=== PATIENT | female | born 1945 | race African-American/Black ===

== ENCOUNTER 2017-05-09 14:37 | Inpatient (IN) ==
--- NOTE | 2017-05-09 15:26 | Emergency Department Note ---
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 She is bedbound. Wears diapers, which are changed infrequently. PCP: Dr. Herrmann PMHx: Hypertension, IDDM, CVA, recurrent UTI, Previous PE, on Coumadin, other comorbidities as listed in chart Date of Last Menstrual Period: hysterectomy Allergies/Adverse Reactions: Allergies Allergy/AdvReac Type Severity Reaction Status Date / Time latex Allergy RASH Verified 01/29/16 14:37 sulfamethoxazole Allergy RASH Verified 01/29/16 14:37 [From Bactrim] trimethoprim [From Bactrim] Allergy RASH Verified 01/29/16 14:37 Home Medications: Home Medications Medication Instructions Recorded Confirmed Type Bimatoprost 0.01% Oph Soln 1 drop BOTH EYES DAILY 04/23/15 05/09/17 History [Lumigan] Brimonidine 0.1% Oph Soln 1 drop BOTH EYES DAILY 04/23/15 05/09/17 History [Alphagan P 0.1% Oph Soln] Furosemide 40 mg PO BID 04/23/15 05/09/17 History Gabapentin 600 mg PO TID 04/23/15 05/09/17 History Magnesium Oxide 400 mg PO BID 04/23/15 05/09/17 History Methenamine Hippurate 1 gm PO BID 04/23/15 05/09/17 History Omeprazole 40 mg PO DAILY 04/23/15 05/09/17 History Spironolactone [Aldactone] 50 mg PO DAILY 04/23/15 05/09/17 History Metoclopramide Tab [Reglan Tab] 5 mg PO ACHS 01/25/16 05/09/17 History metFORMIN [Glucophage] 500 mg PO BID W/MEALS 01/25/16 05/09/17 History Acetaminophen Tab [Tylenol Tab] 325 mg PO Q4H PRN #0 tablet 02/01/16 05/09/17 Rx Baclofen 20 mg PO Q8HR PRN #0 02/01/16 05/09/17 Rx Insulin Detemir [Levemir] 75 units SUBCUT BEDTIME 07/13/16 05/09/17 History Isosorbide Mononitrate [Imdur] 30 mg PO DAILY tablet 07/15/16 05/09/17 Rx Ciprofloxacin Tab [Cipro Tab] 500 mg PO BID #14 tablet 09/04/16 05/09/17 Rx Warfarin Sodium 5 mg PO DAILY 05/09/17 05/09/17 History Review of System - Review of System 12 point system: reviewed and no additional remarkable complaints except as stated - Review of System Constitutional: Absent: fever Genitourinary female: Present: as per HPI, dysuria Neurological: Present: as per HPI, confusion Medical,Surgical,& Family Hx - Medical History Cardio: History of: Cerebrovascular Disease, Hypertension No history of: Aneurysm, Cardiac Dysrhythmia, Congenital Heart Disease, CAD, MD, Pacemaker, PVD, Valvular Heart Disease, Cardiovascular Problems Neurology: History of: Cerebrovascular Accident HEENT: History of: Eye Problem, Glaucoma Endocrine: History of: Diabetes Mellitus (IDDM) Respiratory: History of: Pulmonary Embolism Genitourinary: History of: Recurring Urinary Tract Infections Gastrointestinal: History of: GERD, GI Problems Musculoskeletal: History of: Back/Neck Problems No history of: Degenerative Disk Disease, Herniated Disk, Osteoporosis, Musculoskeletal Cancer, Musculoskeletal Problems Hematology: History of: Clotting Problems No history of: Anemia, Blood Transfusion Reaction, Bleeding Problems, Sickle Cell Disease, Hematologic Cancer, Blood Disorders Reproductive: No history of: Abnormal Pap Smear, Breast Cancer, Endometriosis, Ectopic , Ovarian Cysts, Complication, Sexually Transmitted Disorders , Reproductive Cancer, Reproductive Problems Other: No history of: Anesthesia Reactions, Anaphylaxis, Cancer, Eczema, HIV, Malignant Hyperthermia, MRSA, Vancomycin-Resistant Enterococci, Skin Problems, Miscellaneous Medical Problems - Surgical History Cardiac Surgeries: Patient Denies: Femoral-Popliteal Bypass Graft, Cardiac Catheterization, Cardiac Surgery, Carotid Endarterectomy, Internal Defibrillator, Vascular Access Devices Thoracic Surgeries: Patient denies;: Kidney (Renal Surgery), Lithotripsy, Nephrectomy, Organ Transplant, Lobectomy Neurologic Surgeries: Patient denies: Brain Aneurysm, Cerebral Hemorrhage, Neurologic Surgery HEENT Surgeries: Patient denies: Carotid Endarterectomy, Eye Surgery, Thyroid Surgery, Tonsilectomy & Adenoidectomy Abdominal Surgeries: Surgical HX of: Cholecystectomy Patient denies: Abdominal Surgery, Appendectomy, Colonoscopy, Gastric Bypass Surgery, EGD, Hernia Repair, Splenectomy Reproductive Surgeries: Surgical HX of;: Gynecologic Surgery, Hysterectomy Patient denies;: Breast Surgery, Section, Cystoscopy, Dilation and Curettage, Genitourinary Surgery, Tubal Ligation Orthopedic Surgeries: Surgical HX of;: Orthopedic Surgery, Total Knee Replacement Patient denies;: Implanted Devices, Spinal Surgery, Total Hip Replacement - Family History Family History: Reports;: Family Heart Disease, Family Hypertension (SON), Family Psychiatric Problems (BRO ALZHIEIMERS), Family Stroke (BRO) Denies;: Family Anesthesia Reaction - Social History Smoking Status: Never smoker Exam Physical Examination: - General General appearance: alert, in no apparent distress - Head Head exam: Present: atraumatic, normocephalic - Eye Eye exam: Present: normal appearance, PERRL, normal ocular movement - Neck Neck exam: Present: normal inspection, full ROM - Chest Chest inspection: Present: normal inspection, symmetric chest wall rise - Respiratory Respiratory exam: Present: normal lung sounds bilaterally. Absent: rales, rhonchi, wheezes - Cardiovascular Cardiovascular exam: Present: regular rate, normal rhythm, normal heart sounds, no murmur - Abdominal Exam Abdominal exam: Present: soft, normal bowel sounds. Absent: distention, tenderness - Extremities Exam Extremities exam: Present: normal inspection - Neurological Exam Neurological exam: Present: lethargic, oriented X3, although mental status is a little dull/lagging during conversation, Strength: 3/5 LUE, 4/5 RUE, 2/5 LLE, 4/ 5 RLE - Psychiatric Psychiatric exam: Present: blunted affect, normal mood, oriented to time, oriented to person, oriented to place, speech is lagging behind questions asked at times, memory intact - Skin Skin exam: Present: warm, dry, sacral decubitus ulcer present with wound dressing in place Vital Signs: Vital Signs Temperature 98.0 F 05/11/17 00:00 Pulse Rate 79 05/11/17 00:00 Respiratory Rate 16 06/30/17 02:00 Blood Pressure 103/56 05/11/17 00:00 O2 Sat by Pulse Oximetry 99 05/11/17 00:00 Course Course Narrative: The multiple negatives in the past medical history were not marked by this provider. They are the result of the triage process, past medical records, or other unknown causes. They are marked by either a bag turner or clericial personnel. Due to time constraints, these were not all reviewed with the patient and the backslashes were not removed from the chart. They should be ignored. - Consultations Time: 16:55 (Hospitalist service notified of pt presence and status. ) Time: 17:00 (Hospitalist service here to evaluate patient. Will admit.) Results - Labs CBC & BMP: 05/10/17 06:07 05/10/17 06:07 Lab Results: I have reviewed the patients labs Labs: Laboratory Tests 05/09/17 14:52 Urine Color Yellow Urine Appearance Cloudy Urine pH 5.0 Ur Specific [place] 1.013 Urine Protein Negative Urine Glucose (UA) Negative Urine Ketones Negative Urine Blood Negative Urine Nitrate Negative Urine Bilirubin Negative Urine Urobilinogen < 2.0 H Urine Leukocytes Large H Urine RBC 39 Urine WBC 218 Urine WBC Clumps Moderate Ur Squamous Epith Cells Occasional Urine Bacteria Many Disposition Clinical Impression: Decubitus ulcers, Acute UTI Disposition: Still a Patient Condition: Stable Time of Disposition: 17:00
[2017-05-09 15:41] LABS: Apearance,Urine CLOUDY (Clear); Bacteria,Urine Many /HPF (Few); Bilirubin,Urine Negative (Negative); Blood, Urine Negative (Negative); Glucose,Urine (UA) Negative (Negative); Ketones,Urine Negative (Negative); Nitrite,Urine Negative (Negative); Protein,Urine Negative; RBC,Urine 39 /HPF (0-4); Squamous Epithelial Cell,Urine Occasional /HPF (0-10); Urine Color Yellow (Yellow); Urine Specific Gravity 1.013 (1.001-1.035); Urine Urobilinogen < 2.0 EU/DL (0.2-1.0); WBC,Urine 218 /HPF (0-6)
[2017-05-09 16:08] LABS: Basophils # 0.1 10*3/uL (0.0-0.2); Basophils % 0.5 % (0.0-0.8); Eosinophils # 0.2 10*3/uL (0.0-0.87); Eosinophils % 1.9 % (0.00-10.9); Hematocrit 38.2 VOL% (35.7-47.0); Hemoglobin 12.2 GM/DL (12.0-16.0); Immature Granulocytes % 0.2 %; Immature Granulocytes Absolute 0.02 #; Lymphocytes # 1.7 10*3/uL (1.4-4.0); Lymphocytes % 16.6 % (21.3-54.2); Mean Corpuscular HGB Conc 31.9 GM/DL (32-36); Mean Corpuscular Hemoglobin 28 PG (27-34); Mean Corpuscular Volume 86.4 FL (87-102); Mean Platelet Volume 10.5 FL (9.6-12.0); Monocytes # 0.6 10*3/uL (0.11-0.8); Monocytes % 5.6 % (1.7-12.7); Neutrophils # 7.7 10*3/uL (1.4-7.4); Neutrophils % 75.2 % (38.7-73.9); Platelet Count 386 T/CUMM (130-400); Red Blood Count 4.42 MC/CUMM (3.8-5.5); Red Cell Distribution Width 15.3 % (9.3-17.3); White Blood Count 10.3 T/CUMM (4-12)
[2017-05-09 16:35] LABS: Alanine Aminotransferase 19 U/L (13-56); Albumin 3.4 G/DL (3.4-5.0); Alkaline Phosphatase 91 U/L (45-117); Aspartate Amino Transferase 18 U/L (0-37); Bilirubin,Total < 0.39 MG/DL (0.2-1.0); Blood Urea Nitrogen 34 MG/DL (7-18); Calcium 9.4 MG/DL (8.5-10.1); Glucose 217 MG/DL (74-106); Osmolality,Calculated 284.1 MOS/KG (273-304); Potassium 2.9 MMOL/L (3.5-5.1); Sodium 135 MMOL/L (136-145); Total Protein 8.4 G/DL (6.4-8.3)
[2017-05-09] MEDS ORDERED: diphenhydrAMINE CAP 25 MG CAPSULE PO PRN (17:15)
[2017-05-09] MEDS ORDERED: ACETAMINOPHEN 325 MG TABLET PO PRN ×2 (17:15)
[2017-05-09] MEDS ORDERED: MORPHINE 2 MG/1 ML SYRINGE IV PRN (17:15)
[2017-05-09] MEDS ORDERED: GLUCAGON 1 MG VIAL IM PRN (17:15)
[2017-05-09] MEDS ORDERED: guaiFENesin/DM ER 600-30 MG TABLET PO PRN (17:15)
[2017-05-09] MEDS ORDERED: DEXTROSE 50% 25 GM/50 ML VIAL IV PRN (17:15)
[2017-05-09] MEDS ORDERED: ONDANSETRON 4 MG/2 ML VIAL IV PRN (17:15)
--- NOTE | 2017-05-09 17:29 | Hospitalist History & Physical ---
Assessment and Plan - Time spent with patient Time spent with patient: Greater than 30 minutes (1) Altered mental status Status: Resolved Assessment and plan: Ms. Diana is a 72-year-old -[place]ian female with history of diabetes, hypertension, CVA, history of PE on Coumadin admitted by hospitalist with acute UTI and hypokalemia. She will be started on IV antibiotics, pain and nausea control. Her potassium will be supplemented. Her medicines have not been entered into the [facility] system so they will be reconciled when available. Dr. Duran we will see and examined patient and further recommendations to follow. Current Visit: No (2) UTI (urinary tract infection) Status: Acute Current Visit: No (3) History of pulmonary embolism Status: Acute Current Visit: No (4) Chronic anticoagulation Status: Acute Current Visit: No (5) Diabetes Status: Acute Current Visit: No Qualifiers: Diabetes mellitus type: type 2 Diabetes mellitus complication status: with circulatory complication (6) Decubitus ulcers Status: Acute Current Visit: No History of Present Illness Chief complaint: Discomfort with urination History of present illness: Ms. Diana is a 72 year old -[place] female with history of diabetes, hypertension, CVA, history of PE on Coumadin presenting to the ED with altered mental status. Patient is a bedridden old stroke with left-sided weakness who lives at home with her family. They state for 3 days she has had altered mental status. Patient states she has had pain and discomfort with urination 2 days. She denies headaches, fever, chest pain, shortness of breath, abdominal pain, or lower extremity edema. 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 Talon Bello is treating at the wound center. Patient is afebrile and her vital signs are stable. Her white count is normal, sodium low at 135, potassium low at 2., creatinine elevated mildly at 1.2. Her UA is cloudy with large leukocytes. After discussion with XAVIER Diana and Dr. Duran the admitting hospitalist, it was agreed patient would be admitted for further evaluation and treatment. Patient's meds will be reconciled once put into [facility] and patient is a full code. Home Medications Medication Instructions Recorded Confirmed Type Bimatoprost 0.01% Oph Soln 1 drop BOTH EYES DAILY 04/23/15 07/14/16 History [Lumigan] Brimonidine 0.1% Oph Soln 1 drop BOTH EYES DAILY 04/23/15 07/14/16 History [Alphagan P 0.1% Oph Soln] Furosemide 40 mg PO BID 04/23/15 07/14/16 History Gabapentin 600 mg PO TID 04/23/15 07/14/16 History Magnesium Oxide 400 mg PO BID 04/23/15 07/14/16 History Methenamine Hippurate 1 gm PO BID 04/23/15 07/14/16 History Omeprazole 40 mg PO DAILY 04/23/15 07/14/16 History Spironolactone [Aldactone] 50 mg PO DAILY 04/23/15 07/14/16 History Metoclopramide Tab [Reglan Tab] 5 mg PO ACHS 01/25/16 07/14/16 History metFORMIN [Glucophage] 500 mg PO BID W/MEALS 01/25/16 07/14/16 History Acetaminophen Tab [Tylenol Tab] 325 mg PO Q4H PRN #0 tablet 02/01/16 07/14/16 Rx Baclofen 20 mg PO Q8HR PRN #0 02/01/16 07/14/16 Rx Insulin Detemir [Levemir] 75 units SUBCUT BEDTIME 07/13/16 07/14/16 History Warfarin [Coumadin] 4 mg PO DAILY@1800 07/13/16 07/14/16 History Isosorbide Mononitrate [Imdur] 30 mg PO DAILY tablet 07/15/16 Rx Warfarin [Coumadin] 3 mg PO DAILY@1800 tablet 07/15/16 Rx Ciprofloxacin Tab [Cipro Tab] 500 mg PO BID #14 tablet 09/04/16 Rx Allergies Allergy/AdvReac Type Severity Reaction Status Date / Time latex Allergy RASH Verified 01/29/16 14:37 sulfamethoxazole Allergy RASH Verified 01/29/16 14:37 [From Bactrim] trimethoprim [From Bactrim] Allergy RASH Verified 01/29/16 14:37 Medical,Surgical,& Family Hx - Medical History Cardio: History of: Hypertension No history of: Aneurysm, Cardiac Dysrhythmia, Cerebrovascular Disease, Congenital Heart Disease, CAD, [place], Pacemaker, PVD, Valvular Heart Disease, Cardiovascular Problems Psychological: No history of: Anxiety Disorders, ADHD, Behavior Problems, Bipolar Disorder, Depression, Previous Suicide Attempt, Psychiatric/Substance Abuse Tx, Schizophrenia, Violent Behavior, Psychiatric Problems Neurology: No history of: Brain Aneurysm, Cerebral Hemorrhage, Cerebral Palsy, Dementia , Migraine, Multiple Sclerosis, Parkinson's Disease, Peripheral Neuropathy, Seizures, TIA, Vertigo, Neurologocal Cancer HEENT: History of: Eye Problem, Glaucoma No history of: Ear Problem, Dental Problems, Oral Cancer Endocrine: History of: Diabetes Mellitus (IDDM) No history of: Adrenal Disease, Diabetes Mellitus (NIDDM), Dyslipidemia, Thyroid Disorder, Endocrine Cancer, Endocrine Problems Rheumatology: No history of;: Fibromyalgia, Gout, Myasthenia Gravis, Psoriasis, Rheumatoid Arthritis, Sjogrens, Systemic Lupus Erythematosus, Rheumatological Problems Respiratory: History of: Pulmonary Embolism No history of: Asthma, Bronchitis, COPD, Intubation, Obstructive Sleep Apnea , Pulmonary Hypertension, Pneumonia, Lung Cancer, Respiratory Problems Renal: No history of: Renal (Kidney) Cancer, Dialysis, Renal Failure, Renal Problems Genitourinary: History of: Recurring Urinary Tract Infections No history of: Bladder Problem, Kidney Stones, Genitourinary Cancer, Problems Gastrointestinal: History of: GERD, GI Problems No history of: Bowel Obstruction, Clostridium Difficile, Crohn's Disease, Diverticulitis/ Diverticulosis, Esophageal Varices, Gastrointestinal Bleed, Hemorrhoids, Hematochezia, Hepatitis, Liver Problems, Pancreatitis, Polyps, Ulcerative Colitis, Gastrointestinal Cancer Musculoskeletal: History of: Back/Neck Problems No history of: Amputation, Degenerative Disk Disease, Herniated Disk, Osteoporosis, Musculoskeletal Cancer, Musculoskeletal Problems Hematology: History of: Clotting Problems No history of: Anemia, Blood Transfusion Reaction, Bleeding Problems, Sickle Cell Disease, Hematologic Cancer, Blood Disorders Reproductive: No history of: Abnormal Pap Smear, Breast Cancer, Endometriosis, Ectopic , Ovarian Cysts, Complication, Sexually Transmitted Disorders , Reproductive Cancer, Reproductive Problems Other: No history of: Anesthesia Reactions, Anaphylaxis, Cancer, Eczema, HIV, Malignant Hyperthermia, MRSA, Vancomycin-Resistant Enterococci, Skin Problems, Miscellaneous Medical Problems - Surgical History Cardiac Surgeries: Patient Denies: Femoral-Popliteal Bypass Graft, Cardiac Catheterization, Cardiac Surgery, Carotid Endarterectomy, Internal Defibrillator, Vascular Access Devices Thoracic Surgeries: Patient denies;: Kidney (Renal Surgery), Lithotripsy, Nephrectomy, Organ Transplant, Lobectomy Neurologic Surgeries: Patient denies: Brain Aneurysm, Cerebral Hemorrhage, Neurologic Surgery HEENT Surgeries: Patient denies: Carotid Endarterectomy, Eye Surgery, Thyroid Surgery, Tonsilectomy & Adenoidectomy Abdominal Surgeries: Surgical HX of: Cholecystectomy Patient denies: Abdominal Surgery, Appendectomy, Colonoscopy, Gastric Bypass Surgery, EGD, Hernia Repair, Splenectomy Reproductive Surgeries: Surgical HX of;: Gynecologic Surgery, Hysterectomy Patient denies;: Breast Surgery, Section, Cystoscopy, Dilation and Curettage, Genitourinary Surgery, Tubal Ligation Orthopedic Surgeries: Surgical HX of;: Orthopedic Surgery, Total Knee Replacement Patient denies;: Implanted Devices, Spinal Surgery, Total Hip Replacement - Family History Family History: Reports;: Family Heart Disease, Family Hypertension (SON), Family Psychiatric Problems (BRO ALZHIEIMERS), Family Stroke (BRO) Denies;: Family Anesthesia Reaction - Social History Smoking Status: Never smoker Have you smoked in the last 12 months: No Frequency of Alcohol Use: None Type of Drug Use: None Marital Status: Legally Lives With:: Children Functional capacity: bed bound Review of systems: A complete 10 system review of systems was obtained and pertinent positives and negatives per HPI Exam - Constitutional Vitals: Period Temp Pulse Resp BP Sys/Valadez Pulse Ox Last 24 Hr 98.4 F-98.4 F 75-77 18-20 100-119/54-60 97-97 Exam: Constitutional System: No distress. No tremulousness. Head: Normocephalic, atraumatic. Ears, Nose and Throat System: No evidence of Otitis or Mastoiditis. No epistaxis or discharge Eyes System: Pupils equal, round, and reactive. Extraocular muscles intact. Neck: Supple, without adenopathy, No jugular venous distention. No thyromegaly, neck mass, or prior surgery apparent. Respiratory System: Chest clear to auscultation. Cardiovascular System: Heart with regular rate and rhythm. No murmur. GI System: Abdomen soft, nontender. Normo active bowel sounds present. Musculoskeletal System: limbs with mild pedal edema. Full distal pulses. Small sacral ulcer, clean no sign of infection Neurological System: No discernable sensory deficit. No aphasia, 3 out of 5 strength on the left, 4 out of 5 on the right Psychiatric System: Conversation is rational Results - Labs CBC & BMP: 05/09/17 15:44 05/09/17 15:44 Lab Results: I have reviewed the past 24 hour labs Quality Measures - VTE Contraindication to Pharmacological VTE Prophylaxis: Already on Theraputic Agent , No Prophylaxis Needed
[2017-05-09] MEDS ORDERED: POTASSIUM CHLORIDE 20 MEQ TABLET PO PRN (17:32)
[2017-05-09] MEDS: SODIUM CHLORIDE 0.9% 1,000 ML IV SCH (18:30)
[2017-05-09] MEDS ORDERED: LEVOFLOXACIN INJ 500 MG in PREMIX 1 EACH IV SCH (19:00)
[2017-05-09 19:53] LABS: INR 1.7; PT Patient Result 18.1 SECS
[2017-05-09] MEDS: METHENAMINE HIPPURATE 1 GM TABLET PO SCH (20:43)
[2017-05-09] MEDS: INSULIN GLARGINE 100 UNIT/ML SUBCUT SCH (20:43)
[2017-05-09] MEDS: GABAPENTIN 600 MG TABLET PO SCH (20:43)
[2017-05-09] MEDS: MEROPENEM 1,000 MG in SODIUM CHLORIDE 0.9% 100 ML IV SCH (20:44)
[2017-05-09] MEDS: METOCLOPRAMIDE 5 MG TABLET PO SCH (20:44)
[2017-05-09] MEDS: INSULIN REGULAR 100 UNIT/ML SUBCUT SCH (20:48)
[2017-05-09] MEDS: POTASSIUM CHLORIDE 20 MEQ TABLET PO SCH ×2 (20:51→23:57)
[2017-05-09] MEDS: MAGNESIUM OXIDE 400 MG TABLET PO SCH (20:52)
[2017-05-10] MEDS: POTASSIUM CHLORIDE 20 MEQ TABLET PO SCH (05:15)
[2017-05-10] MEDS: SODIUM CHLORIDE 0.9% 1,000 ML IV SCH ×3 (05:15→20:33)
[2017-05-10 06:50] LABS: Basophils % 0.4 % (0.0-0.8); Eosinophils # 0.3 10*3/uL (0.0-0.87); Eosinophils % 3.2 % (0.00-10.9); Hematocrit 35.4 VOL% (35.7-47.0); Hemoglobin 11.1 GM/DL (12.0-16.0); Immature Granulocytes % 0.2 %; Immature Granulocytes Absolute 0.02 #; Lymphocytes # 1.9 10*3/uL (1.4-4.0); Lymphocytes % 22.5 % (21.3-54.2); Mean Corpuscular HGB Conc 31.4 GM/DL (32-36); Mean Corpuscular Hemoglobin 27 PG (27-34); Mean Corpuscular Volume 86.3 FL (87-102); Mean Platelet Volume 10.9 FL (9.6-12.0); Monocytes # 0.6 10*3/uL (0.11-0.8); Monocytes % 7.2 % (1.7-12.7); Neutrophils # 5.6 10*3/uL (1.4-7.4); Neutrophils % 66.5 % (38.7-73.9); Platelet Count 370 T/CUMM (130-400); Red Cell Distribution Width 15.3 % (9.3-17.3); White Blood Count 8.4 T/CUMM (4-12)
[2017-05-10 07:00] LABS: INR 1.5; PT Patient Result 16.7 SECS
[2017-05-10 07:27] LABS: Calcium 8.5 MG/DL (8.5-10.1); Magnesium 2.5 MG/DL (1.8-2.4); Osmolality,Calculated 283.5 MOS/KG (273-304); Potassium 3.8 MMOL/L (3.5-5.1)
--- NOTE | 2017-05-10 07:44 | EKG Report ---
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
[2017-05-10] MEDS: INSULIN REGULAR 100 UNIT/ML SUBCUT SCH ×4 (07:54→21:30)
[2017-05-10] MEDS: METOCLOPRAMIDE 5 MG TABLET PO SCH ×4 (08:06→20:35)
[2017-05-10] MEDS: GABAPENTIN 600 MG TABLET PO SCH ×3 (08:06→20:34)
[2017-05-10] MEDS: MAGNESIUM OXIDE 400 MG TABLET PO SCH ×2 (08:06→20:34)
[2017-05-10] MEDS: METHENAMINE HIPPURATE 1 GM TABLET PO SCH ×2 (08:06→20:35)
[2017-05-10] MEDS: PANTOPRAZOLE 40 MG TABLET PO SCH (08:07)
[2017-05-10] MEDS: ISOSORBIDE MONONITRATE 30 MG TABLET PO SCH (08:07)
[2017-05-10] MEDS: BIMATOPROST 0.01% OPH SOLN 2.5 ML BOTTLE BOTH EYES SCH (08:11)
[2017-05-10] MEDS: BRIMONIDINE 0.1% OPH SOLN 5 ML BOTTLE BOTH EYES SCH (08:11)
[2017-05-10] MEDS: MEROPENEM 1,000 MG in SODIUM CHLORIDE 0.9% 100 ML IV SCH ×2 (08:14→20:35)
--- NOTE | 2017-05-10 08:19 | Hospitalist Progress Note ---
Assessment and Plan (1) UTI (urinary tract infection) Status: Acute Assessment and plan: Impression: 1. Urinary tract infection 2. Old stroke 3. Pressure ulcer 4. Pulmonary embolism, on warfarin Plan: Continue IV antibiotics until culture results are available. Reconcile home medications. Continue local wound care. Adjust warfarin as indicated. This note was completed using [employer] voice recognition software. There may be information assurance manager errors as a result. Current Visit: No Qualifiers: Urinary tract infection type: acute cystitis Hematuria presence: without hematuria Qualified Code(s): N30.00 - Acute cystitis without hematuria Hospitalist: Subjective Interval history: Follow-up urinary tract infection and pressure ulcer. The patient reports to me that she had a cerebral infarction about 10 years ago. She was initially ambulatory, but has gradually become weak and bedbound. She has a sacral pressure ulcer that is apparently healing well at home. About 3 or 4 days ago, she noted the onset of some dysuria and itching. She reports frequent urinary infections, and says that these are usually able to be managed at home. She came in this time and was found to have significant pyuria. She has been admitted and started on IV antibiotics. She has not had any fever. She has not had any blood in the urine. Exam - Constitutional Vitals: Period Temp Pulse Resp BP Sys/Valadez Pulse Ox Last 24 Hr 97.1 F-98.4 F 73-96 16-20 100-119/54-67 95-97 Vital signs are noted above. She is awake and alert. Heart is regular with no murmur or gallop. Lungs are clear with no rales or wheezes. Abdomen is soft with no significant mass or tenderness. Results - Labs CBC & BMP: 05/10/17 06:07 05/10/17 06:07 Lab Results: I have reviewed the past 24 hour labs (There is no leukocytosis. Renal function is normal.) Quality Measures - VTE Contraindication to Pharmacological VTE Prophylaxis: Already on Theraputic Agent , No Prophylaxis Needed
[2017-05-10] MEDS ORDERED: PANTOPRAZOLE 40 MG TABLET PO SCH (09:00)
--- NOTE | 2017-05-10 15:44 | Physician Query Form ---
CLICK EDIT DOCUMENT TO SELECT QUERY ANSWER --> OK --> SIGN Mena Chavarria RN Clinical Project Administrator W) [phone] (f) [phone] [email or web address] PROVIDERS: Make your selection(s) from the choices in EACH section by typing an "x" and enter comments in the comment section. Please use your independent medical judgment in providing your response. This request does not imply that any particular answer is desired or expected. CLINICAL INDICATORS: (Providers should not edit this section) Based on documentation of "patient is bedridden". Nurse notes state patient is incontinent of bowel and bladder. Patient has muscle weakness and requires maximum assist with hygiene and feeding. Which, if any, of the following is an etiology of the above abnormalities and treatment rendered: ( ) Functional quadriplegia (complete immobility due to severe physical disability or frailty due to non-neurologic cause) ( ) Quadriplegia due to a neurologic cause, please specify: ( ) Paraplegia due to a neurologic cause, please specify: (x ) Hemiplegia/hemiparesis due to a neurologic cause, please specify: ( ) Complete Immobility (due to frailty or severe physical disability) ( ) Persistent vegetative state ( ) Critical illness myopathy (difficulty weaning patients from mechanical ventilation or prolonged recovery after illness) ( ) General weakness ( ) Other cause, please specify: ( ) Clinically unable to determine COMMENTS: PLEASE ALSO DOCUMENT RESPONSE IN PROGRESS NOTES AND/OR DISCHARGE SUMMARY Use of terms such as suspected, likely, or probable (associated with a specific diagnosis that is being evaluated, monitored, or treated as if it exists) are acceptable and can be restated in the discharge summary if not ruled out. MTDD
[2017-05-10] MEDS: SODIUM HYPOCHLORITE 0.25% IRRIG 473 ML BOTTLE TOP SCH (16:48)
[2017-05-10] MEDS: WARFARIN 5 MG TABLET PO SCH (17:42)
[2017-05-10] MEDS: INSULIN GLARGINE 100 UNIT/ML SUBCUT SCH (22:09)
[2017-05-11 04:03] LABS: INR 1.4; PT Patient Result 15.3 SECS
[2017-05-11 04:19] LABS: Calcium 8.4 MG/DL (8.5-10.1); Osmolality,Calculated 288.1 MOS/KG (273-304); Potassium 3.8 MMOL/L (3.5-5.1)
[2017-05-11] MEDS: SODIUM CHLORIDE 0.9% 1,000 ML IV SCH ×3 (05:38→20:20)
[2017-05-11] MEDS: BRIMONIDINE 0.1% OPH SOLN 5 ML BOTTLE BOTH EYES SCH (08:31)
[2017-05-11] MEDS: METOCLOPRAMIDE 5 MG TABLET PO SCH ×4 (08:32→21:26)
[2017-05-11] MEDS: ISOSORBIDE MONONITRATE 30 MG TABLET PO SCH (08:32)
[2017-05-11] MEDS: PANTOPRAZOLE 40 MG TABLET PO SCH (08:32)
[2017-05-11] MEDS: GABAPENTIN 600 MG TABLET PO SCH ×3 (08:32→21:26)
[2017-05-11] MEDS: METHENAMINE HIPPURATE 1 GM TABLET PO SCH ×2 (08:32→21:26)
[2017-05-11] MEDS: MAGNESIUM OXIDE 400 MG TABLET PO SCH ×2 (08:32→21:26)
[2017-05-11] MEDS: BIMATOPROST 0.01% OPH SOLN 2.5 ML BOTTLE BOTH EYES SCH (08:32)
[2017-05-11] MEDS: INSULIN REGULAR 100 UNIT/ML SUBCUT SCH ×4 (08:33→21:55)
[2017-05-11] MEDS: MEROPENEM 1,000 MG in SODIUM CHLORIDE 0.9% 100 ML IV SCH ×2 (08:33→21:30)
--- NOTE | 2017-05-11 09:17 | Hospitalist Progress Note ---
Assessment and Plan (1) UTI (urinary tract infection) Status: Acute Assessment and plan: Impression: 1. Urinary tract infection 2. Old stroke 3. Pressure ulcer, present on admission 4. Pulmonary embolism, on warfarin Plan: Continue IV antibiotics until culture results are available. Magnesium citrate has been added. Continue local wound care. Plan on discharge in the morning This note was completed using [employer] voice recognition software. There may be route cdl driver errors as a result. Current Visit: No Qualifiers: Urinary tract infection type: acute cystitis Hematuria presence: without hematuria Qualified Code(s): N30.00 - Acute cystitis without hematuria Hospitalist: Subjective Interval history: Follow-up urinary tract infection, constipation, and pressure sores. The patient continued to receive appropriate treatment for the pressure sores that were all present on admission. Urine culture is growing couple of different organisms; these have yet to be identified. She continues on meropenem. She says that she has not had a bowel movement in 5 days. She reports chronic constipation at home, usually relieved by milk of magnesia or magnesium citrate. She thinks she might be ready for discharge in the morning. Exam - Constitutional Vitals: Period Temp Pulse Resp BP Sys/Valadez Pulse Ox Last 24 Hr 97.7 F-98.9 F 68-95 16-20 94-124/50-74 90-99 Vital signs are noted above. Heart is regular with no murmur or gallop. Lungs are clear with no rales or wheezes. Abdomen is soft with some distention but no significant mass or tenderness. She is awake and alert. Results - Labs CBC & BMP: 05/10/17 06:07 05/11/17 03:28 Lab Results: I have reviewed the past 24 hour labs Quality Measures - VTE Contraindication to Pharmacological VTE Prophylaxis: Already on Theraputic Agent , No Prophylaxis Needed
[2017-05-11] MEDS: SODIUM HYPOCHLORITE 0.25% IRRIG 473 ML BOTTLE TOP SCH (09:50)
[2017-05-11] MEDS ORDERED: MAGNESIUM CITRATE 300 ML BOTTLE PO ONE (10:00)
[2017-05-11] MEDS: WARFARIN 5 MG TABLET PO SCH (17:20)
[2017-05-11] MEDS: INSULIN GLARGINE 100 UNIT/ML SUBCUT SCH (21:55)
[2017-05-11] MEDS: BACLOFEN 20 MG TABLET PO PRN (23:45)
[2017-05-12 02:56] LABS: INR 1.4; PT Patient Result 15.2 SECS
[2017-05-12] MEDS ORDERED: MAGNESIUM CITRATE 300 ML BOTTLE PO ONE (08:24)
--- NOTE | 2017-05-12 08:27 | Hospitalist Progress Note ---
Assessment and Plan (1) UTI (urinary tract infection) Status: Acute Assessment and plan: Impression: 1. Urinary tract infection with E. coli and enterococcus 2. Old stroke 3. Pressure ulcer, present on admission 4. Pulmonary embolism, on warfarin Plan: Switch to oral antibiotics. One more dose of magnesium citrate. If her bowels moved today, I hope to discharge her this afternoon. This note was completed using [employer] voice recognition software. There may be front desk attendant errors as a result. Current Visit: No Qualifiers: Urinary tract infection type: acute cystitis Hematuria presence: without hematuria Qualified Code(s): N30.00 - Acute cystitis without hematuria Hospitalist: Subjective Interval history: Follow-up urinary tract infection, old stroke, pressure ulcer, and constipation. The patient continues to have some left-sided abdominal pain. We gave her a bottle of magnesium citrate, and she only managed to produce some flatus. She says that her bowels did not move. Her urine culture has grown E. coli and enterococcus; both are sensitive to nitrofurantoin. She ate all of her breakfast. Exam - Constitutional Vitals: Period Temp Pulse Resp BP Sys/Valadez Pulse Ox Last 24 Hr 97.6 F-98.3 F 65-83 18-20 101-107/50-64 75-98 Vital signs are noted above. Heart is regular with no murmur and distant tones. Lungs are clear with no rales or wheezes. Abdomen is protuberant with some left sided tenderness. She is awake and alert Results - Labs CBC & BMP: 05/10/17 06:07 05/11/17 03:28 Lab Results: I have reviewed the past 24 hour labs Quality Measures - VTE Contraindication to Pharmacological VTE Prophylaxis: Already on Theraputic Agent , No Prophylaxis Needed
[2017-05-12] MEDS: GABAPENTIN 600 MG TABLET PO SCH ×3 (08:29→21:15)
[2017-05-12] MEDS: INSULIN REGULAR 100 UNIT/ML SUBCUT SCH ×4 (08:29→21:16)
[2017-05-12] MEDS: METOCLOPRAMIDE 5 MG TABLET PO SCH ×4 (08:29→21:15)
[2017-05-12] MEDS: BRIMONIDINE 0.1% OPH SOLN 5 ML BOTTLE BOTH EYES SCH (08:30)
[2017-05-12] MEDS: BIMATOPROST 0.01% OPH SOLN 2.5 ML BOTTLE BOTH EYES SCH (08:30)
[2017-05-12] MEDS: MAGNESIUM OXIDE 400 MG TABLET PO SCH ×2 (08:30→21:15)
[2017-05-12] MEDS: PANTOPRAZOLE 40 MG TABLET PO SCH (08:30)
[2017-05-12] MEDS: METHENAMINE HIPPURATE 1 GM TABLET PO SCH ×2 (08:30→21:15)
[2017-05-12] MEDS: ISOSORBIDE MONONITRATE 30 MG TABLET PO SCH (08:30)
[2017-05-12] MEDS: NITROFURANTOIN MACRO/MONO 100 MG CAPSULE PO SCH ×2 (08:33→21:14)
[2017-05-12] MEDS: SODIUM HYPOCHLORITE 0.25% IRRIG 473 ML BOTTLE TOP SCH (09:28)
[2017-05-12] MEDS: SODIUM CHLORIDE 0.9% 1,000 ML IV SCH ×2 (12:04→19:15)
[2017-05-12] MEDS: WARFARIN 5 MG TABLET PO SCH (17:31)
[2017-05-12] MEDS: INSULIN GLARGINE 100 UNIT/ML SUBCUT SCH (21:15)
[2017-05-13] MEDS: SODIUM CHLORIDE 0.9% 1,000 ML IV SCH (04:09)
[2017-05-13] MEDS: BACLOFEN 20 MG TABLET PO PRN (05:41)
[2017-05-13 05:50] LABS: INR 1.6; PT Patient Result 16.9 SECS
[2017-05-13 08:43] VITALS: BP 118/64
[2017-05-13] MEDS: INSULIN REGULAR 100 UNIT/ML SUBCUT SCH (08:51)
[2017-05-13] MEDS: METOCLOPRAMIDE 5 MG TABLET PO SCH (08:52)
[2017-05-13] MEDS: NITROFURANTOIN MACRO/MONO 100 MG CAPSULE PO SCH (08:52)
[2017-05-13] MEDS: MAGNESIUM OXIDE 400 MG TABLET PO SCH (08:52)
[2017-05-13] MEDS: METHENAMINE HIPPURATE 1 GM TABLET PO SCH (08:52)
[2017-05-13] MEDS: ISOSORBIDE MONONITRATE 30 MG TABLET PO SCH (08:52)
[2017-05-13] MEDS: BIMATOPROST 0.01% OPH SOLN 2.5 ML BOTTLE BOTH EYES SCH (08:52)
[2017-05-13] MEDS: PANTOPRAZOLE 40 MG TABLET PO SCH (08:52)
[2017-05-13] MEDS: GABAPENTIN 600 MG TABLET PO SCH (08:52)
[2017-05-13] MEDS: BRIMONIDINE 0.1% OPH SOLN 5 ML BOTTLE BOTH EYES SCH (08:52)
[2017-05-13] MEDS: SODIUM HYPOCHLORITE 0.25% IRRIG 473 ML BOTTLE TOP SCH (08:55)
--- NOTE | 2017-05-13 08:59 | Discharge Summary ---
Hospital Course - Hospital Course Hospital Course: Discharge diagnosis: Urinary tract infection Old stroke Pressure ulcer Pulmonary embolism The patient presented to the hospital for urinary symptoms. She was found to have another urinary tract infection. She was started on meropenem due to prior culture results showing resistant organisms. She grew 2 organisms and will both sensitive to Macrodantin, and her antibiotics were adjusted appropriately. She had some difficulty with constipation, and required several doses of laxatives in order to achieve a bowel movement. She continued to be seen by surgery and wound care for her pressure ulcer. She has now reached maximal hospital benefit, so we will let her go home. We discussed nutritional support and pressure relief as management strategies for her sacral pressure ulcer. Medication reconciliation has been performed. Regular diet. Activity as tolerated. This note was completed using [employer] voice recognition software. There may be flight dynamicist errors as a result. Diagnosis - Discharge Diagnosis (1) UTI (urinary tract infection) Status: Acute Discharge Plan - Discharge Data Disposition: Disch To Home/Self Care Condition at Discharge: Stable Discharge Diet: advance to your usual diet - Discharge Medications New Nitrofurantoin Macro/Tr[place]dale [Macrobid] 100 mg PO BID #10 capsule Continue Methenamine Hippurate 1 gm PO BID Brimonidine 0.1% Oph Soln [Alphagan P 0.1% Oph Soln] 1 drop BOTH EYES BID Omeprazole 40 mg PO DAILY Spironolactone [Aldactone] 50 mg PO DAILY Bimatoprost 0.01% Oph Soln [Lumigan] 1 drop BOTH EYES BEDTIME Gabapentin 600 mg PO TID Magnesium Oxide 400 mg PO BID Furosemide 40 mg PO BID Metoclopramide Tab [Reglan Tab] 5 mg PO ACHS metFORMIN [Glucophage] 500 mg PO BID W/MEALS Acetaminophen Tab [Tylenol Tab] 325 mg PO Q4H PRN #0 tablet PRN Reason: fever, headache/body aches Baclofen 20 mg PO Q8HR PRN #0 PRN Reason: muscle spasm Insulin Detemir [Levemir] 75 units SUBCUT BEDTIME Isosorbide Mononitrate [Imdur] 30 mg PO DAILY tablet Warfarin Sodium 5 mg PO DAILY Discontinued Ciprofloxacin Tab [Cipro Tab] 500 mg PO BID #14 tablet - Follow Up or Referral - Forms/Instructions Exam - Constitutional Vitals: Period Temp Pulse Resp BP Sys/Valadez Pulse Ox Last 24 Hr 97 F-98.1 F 72-80 16-20 99-133/52-78 94-100 Vital signs are noted above. Heart is regular with no murmur. Lungs are clear. Abdomen is soft with good bowel sounds and no tenderness. She is awake and alert Discharge Results Procedures and tests throughout hospitalization: Pending Orders 05/09/17 15:44 Blood Culture Stat 05/14/17 04:00 Prothrombin Time INR IN AM Labs on day of discharge: Labs from last 24 hours 05/13/17 05/13/17 05/12/17 07:33 04:23 20:09 INR 1.6 PT Patient/Control Mix 16.9 POC Glucose 107 H 210 H 05/12/17 05/12/17 15:15 11:53 INR PT Patient/Control Mix POC Glucose 207 H 111 H Preliminary micro results at discharge 05/09/17 15:44 Blood Culture - Preliminary Blood No growth at 3 days 05/09/17 15:44 Blood Culture - Preliminary Blood No growth at 3 days DS: Provider Date of admission: 05/09/17 16:56 Primary care physician: . No PCP Attending physician on admission: Eugene Arango MD Consults: 05/09/17 17:19 Consult to Wound Care - Agar [CONS] Routine Reason for Wound Care: Wound Care Management Consult Comment: sacral ulcer, pt of dr davin kerr 05/09/17 18:22 Consult to Dietitian [CONS] Routine Reason for Dietitian: Dietary Consult Consult Comment: weight loss Discharging clinician: Song Blanc MD Expected date of discharge: 05/13/17
== END 2017-05-13 10:55 | disposition home or self-care (01) | DRG 689 ==
LOC: EDBD → EDUNIT# → N.ED 14:37 → N.EDINP 16:56 → SUATTDRO 16:56 → N.EDINP 17:44 → N.2E 17:55
PROVIDERS: ADMIT Family Medicine; ATTEND Internal Medicine Geriatric Medicine

== ENCOUNTER 2017-07-07 22:37 | Inpatient (IN) ==
[2017-07-07] MEDS ORDERED: LEVOFLOXACIN INJ 750 MG in PREMIX 1 EACH IV STA (23:04)
[2017-07-07] MEDS ORDERED: VANCOMYCIN INJ 1,000 MG in SODIUM CHLORIDE 0.9% 250 ML IV STA (23:04)
[2017-07-07] MEDS ORDERED: SODIUM CHLORIDE 0.9% 1,000 ML IV STA (23:04)
--- NOTE | 2017-07-07 23:12 | Emergency Department Note ---
Arrival - Arrival Chief Complaint: Altered Mental Status Stated Complaint: AMS ED Nursing Triage Note: Patient to ED via EMS coming from home with c/o AMS since 1800. Patient is AAOx3 upon arrival to ED and family is unavailable at this time to get more information. Patient noted to have low grade fever, indwelling martins and sacral decubitus ulcer. Mode of Arrival: Stretcher Limitations: No Limitations Source: Patient Time Seen by Provider: 07/07/17 23:04 - History of Present Illness HPI Narrative: This 72-year-old black female, chronically bedbound with chronic sacral decubitus and chronic Martins catheter presents lethargic and poorly responsive for the last 18 hours with gradual thickening and discoloration of the contents of her Martins bag. The patient is normally quite communicative although immobile but since this morning she has been confused. At the moment she will respond to questions but with brief short responses and is oriented to person and place but not so much time. Family denies any any chills, fever, nausea, vomiting, cough, shortness of breath. Of note, the patient is followed in the wound clinic for a large sacral decubitus. Currently she is in no acute medical distress. Onset (ago): hour(s) (Patient presents 18 hours since onset of symptoms) Allergies/Adverse Reactions: Allergies Allergy/AdvReac Type Severity Reaction Status Date / Time latex Allergy RASH Verified 07/07/17 22:46 sulfamethoxazole Allergy RASH Verified 07/07/17 22:46 [From Bactrim] trimethoprim [From Bactrim] Allergy RASH Verified 07/07/17 22:46 Home Medications: Home Medications Medication Instructions Recorded Confirmed Type Bimatoprost 0.01% Oph Soln 1 drop BOTH EYES BEDTIME 04/23/15 05/11/17 History [Lumigan] Brimonidine 0.1% Oph Soln 1 drop BOTH EYES BID 04/23/15 05/11/17 History [Alphagan P 0.1% Oph Soln] Furosemide 40 mg PO BID 04/23/15 06/07/17 History Gabapentin 600 mg PO TID 04/23/15 05/09/17 History Magnesium Oxide 400 mg PO BID 04/23/15 05/09/17 History Methenamine Hippurate 1 gm PO BID 04/23/15 06/07/17 History Omeprazole 40 mg PO DAILY 04/23/15 05/09/17 History Spironolactone [Aldactone] 50 mg PO QAM 04/23/15 06/07/17 History Metoclopramide Tab [Reglan Tab] 5 mg PO ACHS 01/25/16 06/07/17 History metFORMIN [Glucophage] 500 mg PO BID W/MEALS 01/25/16 06/07/17 History Acetaminophen Tab [Tylenol Tab] 325 mg PO Q4H PRN #0 tablet 02/01/16 05/09/17 Rx Baclofen 20 mg PO Q8HR PRN #0 02/01/16 05/09/17 Rx Insulin Detemir [Levemir] 75 units SUBCUT BEDTIME 07/13/16 05/09/17 History Isosorbide Mononitrate [Imdur] 30 mg PO DAILY tablet 07/15/16 05/09/17 Rx Warfarin Sodium 5 mg PO DAILY 05/09/17 05/09/17 History Doxepin HCl [Doxepin HCl 5% Cream] 1 applic TOP DAILY 06/07/17 06/07/17 History Hydrocodone/Acetaminophen 1 tablet PO QID PRN 06/07/17 06/07/17 History [Hydrocodon-Acetaminophn 10-325] Review of System - Review of System 12 point system: reviewed and no additional remarkable complaints except as stated - Review of System Constitutional: Present: as per HPI Respiratory: Present: as per HPI Cardiovascular: Present: as per HPI Gastrointestinal: Present: as per HPI Medical,Surgical,& Family Hx - Medical History Cardio: History of: Cerebrovascular Disease, CHF (I don't see a recent EF), Hypertension No history of: Aneurysm, Cardiac Dysrhythmia, Congenital Heart Disease, CAD, CO, Pacemaker, PVD, Valvular Heart Disease, Cardiovascular Problems Psychological: No history of: Anxiety Disorders, ADHD, Behavior Problems, Bipolar Disorder, Depression, Previous Suicide Attempt, Psychiatric/Substance Abuse Tx, Schizophrenia, Violent Behavior, Psychiatric Problems Neurology: History of: Cerebrovascular Accident No history of: Brain Aneurysm, Cerebral Hemorrhage, Cerebral Palsy, Dementia , Migraine, Multiple Sclerosis, Parkinson's Disease, Peripheral Neuropathy, Seizures, TIA, Vertigo, Neurologocal Cancer HEENT: History of: Eye Problem, Glaucoma No history of: Ear Problem, Dental Problems, Oral Cancer Endocrine: History of: Diabetes Mellitus (IDDM) No history of: Adrenal Disease, Diabetes Mellitus (NIDDM), Dyslipidemia, Thyroid Disorder, Endocrine Cancer, Endocrine Problems Rheumatology: No history of;: Fibromyalgia, Gout, Myasthenia Gravis, Psoriasis, Rheumatoid Arthritis, Sjogrens, Systemic Lupus Erythematosus, Rheumatological Problems Respiratory: History of: Pulmonary Embolism No history of: Asthma, Bronchitis, COPD, Intubation, Obstructive Sleep Apnea , Pulmonary Hypertension, Pneumonia, Lung Cancer, Respiratory Problems Renal: No history of: Renal (Kidney) Cancer, Dialysis, Renal Failure, Renal Problems Genitourinary: History of: Recurring Urinary Tract Infections No history of: Bladder Problem, Kidney Stones, Genitourinary Cancer, Problems Gastrointestinal: History of: GERD, GI Problems No history of: Bowel Obstruction, Clostridium Difficile, Crohn's Disease, Diverticulitis/ Diverticulosis, Esophageal Varices, Gastrointestinal Bleed, Hemorrhoids, Hematochezia, Hepatitis, Liver Problems, Pancreatitis, Polyps, Ulcerative Colitis, Gastrointestinal Cancer Musculoskeletal: History of: Back/Neck Problems No history of: Amputation, Degenerative Disk Disease, Herniated Disk, Osteoporosis, Musculoskeletal Cancer, Musculoskeletal Problems Hematology: History of: Clotting Problems No history of: Anemia, Blood Transfusion Reaction, Bleeding Problems, Sickle Cell Disease, Hematologic Cancer, Blood Disorders Reproductive: No history of: Abnormal Pap Smear, Breast Cancer, Endometriosis, Ectopic , Ovarian Cysts, Complication, Sexually Transmitted Disorders , Reproductive Cancer, Reproductive Problems Other: No history of: Anesthesia Reactions, Anaphylaxis, Cancer, Eczema, HIV, Malignant Hyperthermia, MRSA, Vancomycin-Resistant Enterococci, Skin Problems, Miscellaneous Medical Problems - Surgical History Cardiac Surgeries: Patient Denies: Femoral-Popliteal Bypass Graft, Cardiac Catheterization, Cardiac Surgery, Carotid Endarterectomy, Internal Defibrillator, Vascular Access Devices Thoracic Surgeries: Patient denies;: Kidney (Renal Surgery), Lithotripsy, Nephrectomy, Organ Transplant, Lobectomy Neurologic Surgeries: Patient denies: Brain Aneurysm, Cerebral Hemorrhage, Neurologic Surgery HEENT Surgeries: Patient denies: Carotid Endarterectomy, Eye Surgery, Thyroid Surgery, Tonsilectomy & Adenoidectomy Abdominal Surgeries: Surgical HX of: Cholecystectomy Patient denies: Abdominal Surgery, Appendectomy, Colonoscopy, Gastric Bypass Surgery, EGD, Hernia Repair, Splenectomy Reproductive Surgeries: Surgical HX of;: Gynecologic Surgery, Hysterectomy Patient denies;: Breast Surgery, Section, Cystoscopy, Dilation and Curettage, Genitourinary Surgery, Tubal Ligation Orthopedic Surgeries: Surgical HX of;: Orthopedic Surgery, Total Knee Replacement Patient denies;: Implanted Devices, Spinal Surgery, Total Hip Replacement - Family History Family History: Reports;: Family Heart Disease, Family Hypertension (SON), Family Psychiatric Problems (BRO ALZHIEIMERS), Family Stroke (BRO) Denies;: Family Anesthesia Reaction - Social History Smoking Status: Never smoker Frequency of Alcohol Use: None Type of Drug Use: None Exam Physical Examination: GENERAL: Chronically ill-appearing lethargic black female in no acute distress. HEENT: Normocephalic. No trauma. Dry mucous membranes. EOMI. PERRLA. ENT NML NECK: Supple. No adenopathy. CARDIAC: Regular. No murmurs. Heart rate 98 CHEST: Scattered expiratory leela. No respiratory distress. O2 sat 100% ABDOMEN: Soft. Nontender. Active bowel sounds. : Sacral decubitus clean and without purulence EXTREMITIES: No trauma. Limited movement and poor strength to all extremities. No pedal edema. SKIN: No diaphoresis. No rash. NEURO: Alert but lethargic and confused. Generalized weakness with vibratory and sensory intact. No focal deficits. Vital Signs: Vital Signs Temperature 99.3 F 07/07/17 22:40 Pulse Rate 98 H 07/07/17 22:40 Respiratory Rate 15 07/07/17 22:40 Blood Pressure 157/84 07/07/17 22:40 O2 Sat by Pulse Oximetry 100 07/07/17 22:40 Course - Reevaluation(s) Reevaluation #1: Advised family that the patient will be admitted for treatment of urosepsis. - Consultations Consultation #1: Discussed with the hospitalist service who will admit for further evaluation treatment. Results - Labs CBC & BMP: 07/07/17 23:41 07/07/17 23:41 Labs: I have reviewed the laboratory noted the elevated white blood cell count and infected urine. - Diagnostic Findings Procedure: Chest x-ray: image reviewed by me, report reviewed by me (Greatly rotated film but no evidence of an acute infiltrate.), CT: image reviewed by me , report reviewed by me (Head: Microvascular ischemia with cerebral atrophy but no acute injury pattern noted) Disposition Clinical Impression: Cystitis, Sacral decubitus, Altered mental status Case discussed with: patient's family Disposition: Still a Patient Condition: Guarded Time of Disposition: 00:42
[2017-07-07] MEDS ORDERED: LEVOFLOXACIN INJ 150 ML IV ONE (23:22)
[2017-07-07 23:54] LABS: Basophils # 0.1 10*3/uL (0.0-0.2); Basophils % 0.4 % (0.0-0.8); Eosinophils # 0.2 10*3/uL (0.0-0.87); Eosinophils % 1.2 % (0.00-10.9); Hemoglobin 10.9 GM/DL (12.0-16.0); Immature Granulocytes % 0.3 %; Immature Granulocytes Absolute 0.04 #; Lymphocytes # 1.5 10*3/uL (1.4-4.0); Lymphocytes % 11.6 % (21.3-54.2); Mean Corpuscular HGB Conc 31.1 GM/DL (32-36); Mean Corpuscular Hemoglobin 26 PG (27-34); Mean Corpuscular Volume 83.3 FL (87-102); Mean Platelet Volume 9.4 FL (9.6-12.0); Monocytes # 0.7 10*3/uL (0.11-0.8); Monocytes % 5.5 % (1.7-12.7); Neutrophils # 10.8 10*3/uL (1.4-7.4); Platelet Count 579 T/CUMM (130-400); Red Cell Distribution Width 16.2 % (9.3-17.3); White Blood Count 13.3 T/CUMM (4-12)
[2017-07-08 00:21] LABS: INR 2.9
[2017-07-08 00:23] LABS: Partial Thromboplastin Time 59.8 SECS (0-40)
[2017-07-08 00:24] LABS: Alanine Aminotransferase 9 U/L (13-56); Albumin 2.8 G/DL (3.4-5.0); Alkaline Phosphatase 96 U/L (45-117); Aspartate Amino Transferase 10 U/L (0-37); Blood Urea Nitrogen 7 MG/DL (7-18); Calcium 9.3 MG/DL (8.5-10.1); Glucose 126 MG/DL (74-106); Osmolality,Calculated 282.1 MOS/KG (273-304); Potassium 3.7 MMOL/L (3.5-5.1); Sodium 142 MMOL/L (136-145); Troponin I Only < 0.015 NG/ML (0.00-0.045)
[2017-07-08 00:27] LABS: Apearance,Urine CLOUDY (Clear); Bilirubin,Urine Negative (Negative); Blood, Urine Large mg/dL (Negative); Glucose,Urine (UA) Negative (Negative); Ketones,Urine 5 mg/dL (Negative); Mucus,Urine Few /LPF (Occasional); Nitrite,Urine Positive (Negative); Protein,Urine 100 MG/DL; RBC,Urine 990 /HPF (0-4); Squamous Epithelial Cell,Urine Many /HPF (0-10); Urine Color Red (Yellow); Urine Urobilinogen < 2.0 EU/DL (0.2-1.0); WBC,Urine 198 /HPF (0-6)
[2017-07-08 00:52] LABS: Ammonia 13 UMOL/L (11-32)
[2017-07-08] MEDS ORDERED: VANCOMYCIN 1,000 MG VIAL ONE (00:55)
--- NOTE | 2017-07-08 01:47 | Hospitalist History & Physical ---
Assessment and Plan - Time spent with patient Time spent with patient: Greater than 30 minutes (1) Acute UTI Status: Acute Assessment and plan: Will await blood and urine cultures. Will start patient on Rocephin and meropenem due to recent blood culture results. Hydration with IV maintenance fluids Tylenol as needed for fever Current Visit: Yes (2) Altered mental status Status: Acute Current Visit: Yes (3) Sepsis Status: Acute Current Visit: Yes (4) Decubitus ulcers Status: Chronic Assessment and plan: We will consult wound care. Current Visit: No (5) Diabetes Status: Acute Assessment and plan: We will continue current diabetic regimen. Check blood glucoses before meals and at bedtime. Diabetic diet. Current Visit: No Qualifiers: Diabetes mellitus type: type 2 Diabetes mellitus complication status: with circulatory complication (6) History of pulmonary embolism Status: Chronic Assessment and plan: Continue patient on Coumadin. Current Visit: No (7) Hypertension Status: Chronic Assessment and plan: Continue patient on antihypertensive regimen. Current Visit: No (8) Paraplegia Status: Chronic Current Visit: No History of Present Illness Chief complaint: altered mental status History of present illness: Called to the ER for a Ms. Diana who is a 72 year old female that presented tonight with altered mental status. Per patient's daughter patient began to act funny around 1800 tonight. Daughter stated that she would not eat. Daughter states that patient gets this way when she has a urinary tract infection. Daughter denies any recent illness or change in health status. In the ER, patient received a CT head which was negative. Blood cultures and urine cultures were drawn. Levaquin and vancomycin and 1 L of normal saline were given. Blood work revealed WBC count of 13.3 and glucose of 126. Bolanos was placed with dark urine and copious amounts of sediment. Daughter states she has had multiple urinary tract infections in the past. She was admitted in April for same complaint where she received Merrem after blood culture results found E. coli and Enterococcus faecalis as organisms. She was sent home on Macrodantin which show susceptibility to both organisms. Patient has a history of a sacral wound ulcer and is followed by Dr. Talon Bello at the wound care center. She also has healing heel ulcers and is followed by home health. She also has a history of hypertension, diabetes, dyslipidemia , CVA with left-sided paralysis, cataracts, chronic pain, and pulmonary embolism for which she is on Coumadin. INR was therapeutic. She lives at home with 2 adult children taking care of her. She is normally alert and oriented. Able to answer questions but is bedbound due to old CVA. Tonight she is sluggish to follow commands and can only tell me her name. She will be admitted to the hospital for antibiotic therapy and hydration therapy. We will start patient on Rocephin and meropenem IV due to recent blood culture results and patient's allergies. Home Medications Medication Instructions Recorded Confirmed Type Bimatoprost 0.01% Oph Soln 1 drop BOTH EYES BEDTIME 04/23/15 05/11/17 History [Lumigan] Brimonidine 0.1% Oph Soln 1 drop BOTH EYES BID 04/23/15 05/11/17 History [Alphagan P 0.1% Oph Soln] Furosemide 40 mg PO BID 04/23/15 06/07/17 History Gabapentin 600 mg PO TID 04/23/15 05/09/17 History Magnesium Oxide 400 mg PO BID 04/23/15 05/09/17 History Methenamine Hippurate 1 gm PO BID 04/23/15 06/07/17 History Omeprazole 40 mg PO DAILY 04/23/15 05/09/17 History Spironolactone [Aldactone] 50 mg PO QAM 04/23/15 06/07/17 History Metoclopramide Tab [Reglan Tab] 5 mg PO ACHS 01/25/16 06/07/17 History metFORMIN [Glucophage] 500 mg PO BID W/MEALS 01/25/16 06/07/17 History Acetaminophen Tab [Tylenol Tab] 325 mg PO Q4H PRN #0 tablet 02/01/16 05/09/17 Rx Baclofen 20 mg PO Q8HR PRN #0 02/01/16 05/09/17 Rx Insulin Detemir [Levemir] 75 units SUBCUT BEDTIME 07/13/16 05/09/17 History Isosorbide Mononitrate [Imdur] 30 mg PO DAILY tablet 07/15/16 05/09/17 Rx Warfarin Sodium 5 mg PO DAILY 05/09/17 05/09/17 History Doxepin HCl [Doxepin HCl 5% Cream] 1 applic TOP DAILY 06/07/17 06/07/17 History Hydrocodone/Acetaminophen 1 tablet PO QID PRN 06/07/17 06/07/17 History [Hydrocodon-Acetaminophn 10-325] Allergies Allergy/AdvReac Type Severity Reaction Status Date / Time latex Allergy RASH Verified 07/07/17 22:46 sulfamethoxazole Allergy RASH Verified 07/07/17 22:46 [From Bactrim] trimethoprim [From Bactrim] Allergy RASH Verified 07/07/17 22:46 Medical,Surgical,& Family Hx - Medical History Cardio: History of: Cerebrovascular Disease, CHF (I don't see a recent EF), Hypertension No history of: Aneurysm, Cardiac Dysrhythmia, Congenital Heart Disease, CAD, MS, Pacemaker, PVD, Valvular Heart Disease, Cardiovascular Problems Psychological: No history of: Anxiety Disorders, ADHD, Behavior Problems, Bipolar Disorder, Depression, Previous Suicide Attempt, Psychiatric/Substance Abuse Tx, Schizophrenia, Violent Behavior, Psychiatric Problems Neurology: History of: Cerebrovascular Accident No history of: Brain Aneurysm, Cerebral Hemorrhage, Cerebral Palsy, Dementia , Migraine, Multiple Sclerosis, Parkinson's Disease, Peripheral Neuropathy, Seizures, TIA, Vertigo, Neurologocal Cancer HEENT: History of: Eye Problem, Glaucoma No history of: Ear Problem, Dental Problems, Oral Cancer Endocrine: History of: Diabetes Mellitus (IDDM) No history of: Adrenal Disease, Diabetes Mellitus (NIDDM), Dyslipidemia, Thyroid Disorder, Endocrine Cancer, Endocrine Problems Rheumatology: No history of;: Fibromyalgia, Gout, Myasthenia Gravis, Psoriasis, Rheumatoid Arthritis, Sjogrens, Systemic Lupus Erythematosus, Rheumatological Problems Respiratory: History of: Pulmonary Embolism No history of: Asthma, Bronchitis, COPD, Intubation, Obstructive Sleep Apnea , Pulmonary Hypertension, Pneumonia, Lung Cancer, Respiratory Problems Renal: No history of: Renal (Kidney) Cancer, Dialysis, Renal Failure, Renal Problems Genitourinary: History of: Recurring Urinary Tract Infections No history of: Bladder Problem, Kidney Stones, Genitourinary Cancer, Problems Gastrointestinal: History of: GERD, GI Problems No history of: Bowel Obstruction, Clostridium Difficile, Crohn's Disease, Diverticulitis/ Diverticulosis, Esophageal Varices, Gastrointestinal Bleed, Hemorrhoids, Hematochezia, Hepatitis, Liver Problems, Pancreatitis, Polyps, Ulcerative Colitis, Gastrointestinal Cancer Musculoskeletal: History of: Back/Neck Problems No history of: Amputation, Degenerative Disk Disease, Herniated Disk, Osteoporosis, Musculoskeletal Cancer, Musculoskeletal Problems Hematology: History of: Clotting Problems No history of: Anemia, Blood Transfusion Reaction, Bleeding Problems, Sickle Cell Disease, Hematologic Cancer, Blood Disorders Reproductive: No history of: Abnormal Pap Smear, Breast Cancer, Endometriosis, Ectopic , Ovarian Cysts, Complication, Sexually Transmitted Disorders , Reproductive Cancer, Reproductive Problems Other: No history of: Anesthesia Reactions, Anaphylaxis, Cancer, Eczema, HIV, Malignant Hyperthermia, MRSA, Vancomycin-Resistant Enterococci, Skin Problems, Miscellaneous Medical Problems - Surgical History Cardiac Surgeries: Patient Denies: Femoral-Popliteal Bypass Graft, Cardiac Catheterization, Cardiac Surgery, Carotid Endarterectomy, Internal Defibrillator, Vascular Access Devices Thoracic Surgeries: Patient denies;: Kidney (Renal Surgery), Lithotripsy, Nephrectomy, Organ Transplant, Lobectomy Neurologic Surgeries: Patient denies: Brain Aneurysm, Cerebral Hemorrhage, Neurologic Surgery HEENT Surgeries: Patient denies: Carotid Endarterectomy, Eye Surgery, Thyroid Surgery, Tonsilectomy & Adenoidectomy Abdominal Surgeries: Surgical HX of: Cholecystectomy Patient denies: Abdominal Surgery, Appendectomy, Colonoscopy, Gastric Bypass Surgery, EGD, Hernia Repair, Splenectomy Reproductive Surgeries: Surgical HX of;: Gynecologic Surgery, Hysterectomy Patient denies;: Breast Surgery, Section, Cystoscopy, Dilation and Curettage, Genitourinary Surgery, Tubal Ligation Orthopedic Surgeries: Surgical HX of;: Orthopedic Surgery, Total Knee Replacement Patient denies;: Implanted Devices, Spinal Surgery, Total Hip Replacement - Family History Family History: Reports;: Family Heart Disease, Family Hypertension (SON), Family Psychiatric Problems (BRO MORE), Family Stroke (BRO) Denies;: Family Anesthesia Reaction - Social History Smoking Status: Never smoker Frequency of Alcohol Use: None Type of Drug Use: None Marital Status: Single Lives With:: Children Functional capacity: bed bound Review of systems: Obtained by daughter - Constitutional Constitutional: Absent: fatigue, fever(s), weakness - Cardiovascular Cardiovascular: Absent: chest pain at rest, chest pain with activity, dyspnea, edema - Respiratory Respiratory: Absent: cough, dyspnea - Gastrointestinal Gastrointestinal: Absent: abdominal pain, constipation, diarrhea, nausea, vomiting - Genitourinary Genitourinary: Absent: difficulty urinating, dysuria, flank pain, hematuria, urinary frequency, urinary hesitancy - Musculoskeletal Musculoskeletal: Present: arthralgias, back pain - Neurological Neurological: Present: confusion Exam - Constitutional Vitals: Period Temp Pulse Resp BP Sys/Valadez Pulse Ox Last 24 Hr 99.3 F-99.3 F 98-98 15-15 157-157/84-84 100 General appearance: normal weight - Head Head exam: Present: normal inspection, normocephalic - Eye Eye exam: Present: EOMI Pupils: Present: ONEIL, normal accommodation - ENT ENT exam: Present: normal exam - Neck Neck exam: Present: normal inspection - Respiratory Respiratory exam: Present: clear to auscultation bilaterally. Absent: accessory muscle use (Respirations even and unlabored. Symmetrical rise and fall.) - Cardiovascular Cardiovascular exam: Present: regular rate and rhythm - GI/Abdominal GI/Abdominal exam: Present: normal bowel sounds, soft. Absent: distended, firm - Extremities Exam Extremities exam: Present: normal capillary refill, full ROM, other (Old ulcers to heels) - Back Exam Back exam: Present: normal inspection - Neurological Exam Neurological exam: Present: alert, other (Bedbound. Can follow commands sluggishly on right side. No movement on left side. This is normal for patient. Can only tell me her name. Does not answer most questions.) - Psychiatric Psychiatric exam: Present: flat affect (Sacral decubitus ulcer) - Skin Skin exam: Present: warm, dry Results - Labs CBC & BMP: 07/07/17 23:41 07/07/17 23:41 Lab Results: I have reviewed the past 24 hour labs
[2017-07-08] MEDS ORDERED: ONDANSETRON 4 MG/2 ML VIAL IV PRN (02:21)
[2017-07-08] MEDS ORDERED: DEXTROSE 50% 25 GM/50 ML SYRINGE IV PRN (02:21)
[2017-07-08] MEDS ORDERED: GLUCAGON 1 MG VIAL IM PRN (02:21)
[2017-07-08] MEDS: SODIUM CHLORIDE 0.9% 1,000 ML IV SCH ×2 (03:03→16:56)
--- NOTE | 2017-07-08 07:10 | CT Report ---
Exam: CT scan of brain without contrast Date: 07/07/2017 Indication: Mental status changes Comparison: 07/13/2016 Patient's classification: Emergency department Technical: Images were obtained from the skull base to the vertex without the use of intravenous contrast. Dose reduction was performed with decreasing kv and mA and automated exposure Total DLP: 997.9 mGy*cm Findings: The study is initially reviewed by [facility]. Small vessel changes are present in the periventricular subcortical white matter regions. The brainstem is intact. Cerebellum reveals no acute findings. The ventricles are slightly enlarged. The paranasal sinuses reveal mild inflammation ethmoid sinuses. Remaining paranasal sinuses globes and cell and mastoids are intact. Impression: 1. No acute hemorrhage infarction or mass effect. 2. Diffuse small vessel ischemic change. PROCEDURE INTERPRETED AT [facility] DEPARTMENT OF RADIOLOGY Final Report Signed by: Dr. Sanket Huerta
--- NOTE | 2017-07-08 08:12 | XRay Report ---
Exam: XR chest lateral decubitus LT Date: 07/07/2017 11:05 PM Indication: Altered mental status Comparison: 07/13/2016 Technical: AP and decubitus Findings: Mild scarring present in the lung de anda. The heart is enlarged. Degenerative change present thoracic spine with calcification in tracheobronchial tree. External cardiac leads are present. No obvious consolidations or effusions. No pneumothorax no obvious evidence of pneumothorax or pneumoperitoneum Impression: 1. Underlying pulmonary fibrotic scarring without acute infiltrates 2. Borderline cardiac enlargement PROCEDURE INTERPRETED AT [facility] DEPARTMENT OF RADIOLOGY Final Report Signed by: Dr. Sanket Huerta
[2017-07-08] MEDS: metFORMIN 500 MG TABLET PO SCH ×2 (08:30→17:27)
[2017-07-08] MEDS: METOCLOPRAMIDE 5 MG TABLET PO SCH ×4 (08:30→20:54)
[2017-07-08] MEDS: GABAPENTIN 600 MG TABLET PO SCH ×3 (08:31→21:03)
[2017-07-08] MEDS: METHENAMINE HIPPURATE 1 GM TABLET PO SCH ×2 (08:31→20:55)
[2017-07-08] MEDS: FUROSEMIDE 40 MG TABLET PO SCH ×2 (08:31→20:54)
[2017-07-08] MEDS: SPIRONOLACTONE 50 MG TABLET PO SCH (08:31)
[2017-07-08] MEDS: MAGNESIUM OXIDE 400 MG TABLET PO SCH ×2 (08:31→20:55)
[2017-07-08] MEDS: PANTOPRAZOLE 40 MG TABLET PO SCH (08:32)
[2017-07-08] MEDS: DOCUSATE SODIUM 100 MG CAPSULE PO SCH ×2 (08:32→20:55)
[2017-07-08] MEDS: ISOSORBIDE MONONITRATE 30 MG TABLET PO SCH (08:32)
[2017-07-08] MEDS: BRIMONIDINE 0.1% OPH SOLN 5 ML BOTTLE BOTH EYES SCH ×2 (08:42→20:54)
--- NOTE | 2017-07-08 08:46 | Hospitalist Progress Note ---
Assessment and Plan - Time spent with patient Time spent with patient: Greater than 30 minutes (1) Altered mental status Status: Resolved Assessment and plan: We will keep current antibiotic pending culture report and de-escalate will also have cultures. Her blood sugars are in good range with current insulin regimen, will continue the same. We will however hold her metformin while she is inpatient. Continue sliding scale insulin. Continue IV fluid hydration. Monitor for fluid overload. She is on Coumadin for previous PE, monitor daily INR. Current Visit: No (2) UTI (urinary tract infection) Status: Acute Current Visit: No Qualifiers: Urinary tract infection type: acute cystitis Hematuria presence: without hematuria Qualified Code(s): N30.00 - Acute cystitis without hematuria (3) Sepsis Status: Acute Current Visit: Yes (4) Diabetes Status: Acute Current Visit: No Qualifiers: Diabetes mellitus type: type 2 Diabetes mellitus complication status: with circulatory complication (5) Debility Status: Chronic Current Visit: No (6) Functional quadriplegia Status: Acute Current Visit: No (7) Sacral decubitus ulcer, stage III Status: Acute Current Visit: No Hospitalist: Subjective Interval history: Bedbound lady with recurrent urinary tract infection and decubital ulcers. She presented this time with change in mental status worsening confusion. Found to have urinary tract infection again based on urinalysis. Antibiotics started empirically based on her previous cultures, will need to de- escalate once repeat cultures are back. No fever today. Mental status is about the same per patient's daughter at bedside. Patient was resting quietly at the time of my rounds. Exam - Constitutional Vitals: Period Temp Pulse Resp BP Sys/Valadez Pulse Ox Last 24 Hr 96.7 F-99.3 F 76-98 15-20 116-157/62-84 97-100 Exam: General appearance: normal weight - Head Head exam: Present: normal inspection, normocephalic - Eye Eye exam: Present: EOMI Pupils: Present: ONEIL, normal accommodation - ENT ENT exam: Present: normal exam - Neck Neck exam: Present: normal inspection - Respiratory Respiratory exam: Present: clear to auscultation bilaterally. Absent: accessory muscle use (Respirations even and unlabored. Symmetrical rise and fall.) - Cardiovascular Cardiovascular exam: Present: regular rate and rhythm - GI/Abdominal GI/Abdominal exam: Present: normal bowel sounds, soft. Absent: distended, firm - Extremities Exam Extremities exam: Present: normal capillary refill, full ROM, other (Old ulcers to heels) - Back Exam Back exam: Present: normal inspection - Neurological Exam Neurological exam: Sleeping quietly, arousable. - Psychiatric Psychiatric exam: Present: flat affect (Sacral decubitus ulcer) - Skin Skin exam: Present: warm, dry Results - Labs CBC & BMP: 07/07/17 23:41 07/07/17 23:41 Lab Results: I have reviewed the past 24 hour labs - Diagnostic Findings Procedure: CT: report reviewed by me Quality Measures - VTE Contraindication to Pharmacological VTE Prophylaxis: Already on Theraputic Agent , No Prophylaxis Needed
[2017-07-08] MEDS: DOXEPIN HCL TOP SCH (09:00)
[2017-07-08] MEDS: cefTRIAXone 1,000 MG in SODIUM CHLORIDE 0.9% 100 ML IV SCH ×2 (09:21→20:56)
[2017-07-08] MEDS: MEROPENEM 500 MG in SODIUM CHLORIDE 0.9% 100 ML IV SCH ×2 (10:23→17:30)
[2017-07-08] MEDS: WARFARIN 5 MG TABLET PO SCH (17:27)
[2017-07-08] MEDS: ACETAMINOPHEN 325 MG TABLET PO PRN (18:16)
[2017-07-08] MEDS: BIMATOPROST 0.01% OPH SOLN 2.5 ML BOTTLE BOTH EYES SCH (20:55)
[2017-07-08] MEDS: INSULIN GLARGINE 100 UNIT/ML SUBCUT SCH (21:08)
[2017-07-09] MEDS: MEROPENEM 500 MG in SODIUM CHLORIDE 0.9% 100 ML IV SCH ×3 (01:09→17:00)
[2017-07-09] MEDS: SODIUM CHLORIDE 0.9% 1,000 ML IV SCH ×2 (06:21→09:26)
[2017-07-09 06:53] LABS: Basophils % 0.4 % (0.0-0.8); Eosinophils # 0.5 10*3/uL (0.0-0.87); Eosinophils % 4.8 % (0.00-10.9); Hematocrit 28.9 VOL% (35.7-47.0); Immature Granulocytes % 0.4 %; Immature Granulocytes Absolute 0.04 #; Lymphocytes # 2.2 10*3/uL (1.4-4.0); Lymphocytes % 21.8 % (21.3-54.2); Mean Corpuscular HGB Conc 30.8 GM/DL (32-36); Mean Corpuscular Hemoglobin 26 PG (27-34); Mean Corpuscular Volume 84.8 FL (87-102); Monocytes # 0.8 10*3/uL (0.11-0.8); Monocytes % 7.9 % (1.7-12.7); Neutrophils # 6.5 10*3/uL (1.4-7.4); Neutrophils % 64.7 % (38.7-73.9); Platelet Count 510 T/CUMM (130-400); Red Blood Count 3.41 MC/CUMM (3.8-5.5); Red Cell Distribution Width 16.4 % (9.3-17.3); White Blood Count 10.1 T/CUMM (4-12)
[2017-07-09 07:06] LABS: Hemoglobin 8.9 GM/DL (12.0-16.0)
[2017-07-09 07:17] LABS: Alanine Aminotransferase < 9 U/L (13-56); Albumin 2.1 G/DL (3.4-5.0); Alkaline Phosphatase 69 U/L (45-117); Aspartate Amino Transferase 9 U/L (0-37); Blood Urea Nitrogen 5 MG/DL (7-18); Calcium 8.4 MG/DL (8.5-10.1); Glucose 93 MG/DL (74-106); Osmolality,Calculated 282.8 MOS/KG (273-304); Potassium 3.5 MMOL/L (3.5-5.1); Sodium 144 MMOL/L (136-145); Total Protein 5.7 G/DL (6.4-8.3)
[2017-07-09] MEDS: METOCLOPRAMIDE 5 MG TABLET PO SCH ×4 (08:14→21:10)
[2017-07-09] MEDS: GABAPENTIN 600 MG TABLET PO SCH ×3 (08:15→21:10)
[2017-07-09] MEDS: ISOSORBIDE MONONITRATE 30 MG TABLET PO SCH (08:15)
[2017-07-09] MEDS: MAGNESIUM OXIDE 400 MG TABLET PO SCH ×2 (08:16→21:10)
[2017-07-09] MEDS: FUROSEMIDE 40 MG TABLET PO SCH (08:16)
[2017-07-09] MEDS: SPIRONOLACTONE 50 MG TABLET PO SCH (08:16)
[2017-07-09] MEDS: PANTOPRAZOLE 40 MG TABLET PO SCH (08:17)
[2017-07-09] MEDS: BRIMONIDINE 0.1% OPH SOLN 5 ML BOTTLE BOTH EYES SCH ×2 (08:18→21:11)
[2017-07-09] MEDS: DOCUSATE SODIUM 100 MG CAPSULE PO SCH ×2 (08:18→21:10)
[2017-07-09] MEDS: DOXEPIN HCL TOP SCH (08:18)
[2017-07-09] MEDS: METHENAMINE HIPPURATE 1 GM TABLET PO SCH ×2 (08:18→21:10)
[2017-07-09] MEDS: metFORMIN 500 MG TABLET PO SCH ×2 (09:24→16:59)
[2017-07-09] MEDS: cefTRIAXone 1,000 MG in SODIUM CHLORIDE 0.9% 100 ML IV SCH (09:48)
--- NOTE | 2017-07-09 11:01 | Hospitalist Progress Note ---
Assessment and Plan (1) Acute UTI Status: Acute Assessment and plan: As suspected to have a catheter related to UTI. Cultures to follow patient is on Merrem and Rocephin will DC Rocephin at present. Change Bolanos catheter Current Visit: Yes (2) Altered mental status Status: Acute Assessment and plan: Improved Current Visit: Yes (3) Diabetes Status: Acute Assessment and plan: Blood sugars controlled continue current insulin regimen Current Visit: No Qualifiers: Diabetes mellitus type: type 2 Diabetes mellitus complication status: with circulatory complication (4) Sacral decubitus ulcer, stage III Status: Acute Assessment and plan: To be followed by the wound care Current Visit: No (5) Hypertension Status: Chronic Assessment and plan: Blood pressure was elevated on admission but recent blood pressure noted to be low normal I will hold loop diuretics. Current Visit: No Hospitalist: Subjective Interval history: Mr. Diana is a 69-year-old female with history of diabetes hypertension CVA and bedbound with a sacral decubitus ulcer and chronic indwelling urinary catheter. She was admitted yesterday with the altered mental status and suspected urinary tract infection. She had a temp of 99.3 in the ER but to have leukocytosis Patient not improved symptomatically and remained afebrile. She is awake and alert Exam - Constitutional Vitals: Period Temp Pulse Resp BP Sys/Valadez Pulse Ox Last 24 Hr 97.0 F-98.0 F 66-106 16-22 100-115/49-65 95-98 General appearance: no acute distress - Respiratory Respiratory exam: Present: clear to auscultation bilaterally. Absent: rales, rhonchi - Cardiovascular Cardiovascular exam: Present: regular rate and rhythm. Absent: tachycardia - GI/Abdominal GI/Abdominal exam: Present: normal bowel sounds, soft. Absent: distended, tenderness - Extremities Exam Extremities exam: Present: other (Sacral decubitus ulcer noted). Absent: edema - Neurological Exam Neurological exam: Present: alert - Skin Skin exam: Present: normal color Results - Labs CBC & BMP: 07/09/17 05:56 07/09/17 05:56 Lab Results: I have reviewed the past 24 hour labs Quality Measures - VTE Contraindication to Pharmacological VTE Prophylaxis: Already on Theraputic Agent , No Prophylaxis Needed
[2017-07-09] MEDS: BACLOFEN 20 MG TABLET PO PRN (11:11)
[2017-07-09] MEDS ORDERED: SKIN HEALING OINT (AQUAPHOR) 50 GM TUBE TOP PRN (15:22)
[2017-07-09] MEDS: SODIUM HYPOCHLORITE 0.25% IRRIG 473 ML BOTTLE TOP SCH (18:51)
[2017-07-09] MEDS: WARFARIN 5 MG TABLET PO SCH (18:52)
[2017-07-09] MEDS: INSULIN GLARGINE 100 UNIT/ML SUBCUT SCH (21:10)
[2017-07-09] MEDS: BIMATOPROST 0.01% OPH SOLN 2.5 ML BOTTLE BOTH EYES SCH (21:11)
[2017-07-10] MEDS: SODIUM CHLORIDE 0.9% 1,000 ML IV SCH ×2 (00:19→15:09)
[2017-07-10] MEDS: MEROPENEM 500 MG in SODIUM CHLORIDE 0.9% 100 ML IV SCH ×2 (01:08→08:15)
[2017-07-10 06:42] LABS: Basophils % 0.4 % (0.0-0.8); Eosinophils # 0.4 10*3/uL (0.0-0.87); Eosinophils % 4.6 % (0.00-10.9); Hematocrit 27.5 VOL% (35.7-47.0); Hemoglobin 8.6 GM/DL (12.0-16.0); Immature Granulocytes % 0.4 %; Immature Granulocytes Absolute 0.04 #; Mean Corpuscular HGB Conc 31.3 GM/DL (32-36); Mean Corpuscular Hemoglobin 26 PG (27-34); Mean Corpuscular Volume 84.1 FL (87-102); Mean Platelet Volume 9.6 FL (9.6-12.0); Monocytes # 0.6 10*3/uL (0.11-0.8); Monocytes % 6.4 % (1.7-12.7); Neutrophils # 6.4 10*3/uL (1.4-7.4); Neutrophils % 67.2 % (38.7-73.9); Platelet Count 471 T/CUMM (130-400); Red Blood Count 3.27 MC/CUMM (3.8-5.5); Red Cell Distribution Width 16.5 % (9.3-17.3); White Blood Count 9.5 T/CUMM (4-12)
[2017-07-10 07:08] LABS: INR 3.7; PT Patient Result 42.9 SECS; Partial Thromboplastin Time 52.7 SECS (0-40)
[2017-07-10 07:13] LABS: Calcium 7.8 MG/DL (8.5-10.1); Osmolality,Calculated 288.6 MOS/KG (273-304); Potassium 3.1 MMOL/L (3.5-5.1)
[2017-07-10 07:18] LABS: Albumin 2.2 G/DL (3.4-5.0); Bilirubin,Total 0.5 MG/DL (0.2-1.0); Calcium 7.8 MG/DL (8.5-10.1); Osmolality,Calculated 288.6 MOS/KG (273-304); Potassium 3.1 MMOL/L (3.5-5.1); Total Protein 5.7 G/DL (6.4-8.3)
[2017-07-10] MEDS: METOCLOPRAMIDE 5 MG TABLET PO SCH ×4 (08:17→20:56)
[2017-07-10] MEDS: ISOSORBIDE MONONITRATE 30 MG TABLET PO SCH (08:17)
[2017-07-10] MEDS: DOCUSATE SODIUM 100 MG CAPSULE PO SCH ×2 (08:17→20:56)
[2017-07-10] MEDS: SPIRONOLACTONE 50 MG TABLET PO SCH (08:17)
[2017-07-10] MEDS: GABAPENTIN 600 MG TABLET PO SCH ×3 (08:18→20:56)
[2017-07-10] MEDS: METHENAMINE HIPPURATE 1 GM TABLET PO SCH ×2 (08:18→20:56)
[2017-07-10] MEDS: MAGNESIUM OXIDE 400 MG TABLET PO SCH ×2 (08:18→20:56)
[2017-07-10] MEDS: PANTOPRAZOLE 40 MG TABLET PO SCH (08:18)
[2017-07-10] MEDS: metFORMIN 500 MG TABLET PO SCH ×2 (08:20→16:30)
[2017-07-10] MEDS: BRIMONIDINE 0.1% OPH SOLN 5 ML BOTTLE BOTH EYES SCH ×2 (08:23→20:55)
[2017-07-10] MEDS: SODIUM HYPOCHLORITE 0.25% IRRIG 473 ML BOTTLE TOP SCH (08:24)
--- NOTE | 2017-07-10 10:27 | Physician Query Form ---
CLICK EDIT DOCUMENT TO SELECT QUERY ANSWER --> OK --> SIGN Jeaneth Fernandez RN, CCDS Certified Clinical Manager Pet W) [phone] (f) [phone] [email or web address] PROVIDERS: Make your selection(s) from the choices in EACH section by typing an "x" and enter comments in the comment section. Please use your independent medical judgment in providing your response. This request does not imply that any particular answer is desired or expected. CLINICAL INDICATORS: (Providers should not edit this section) The medical record indicates that the patient was admitted with a catheter related UTI, sepsis, "alert but lethargic and confused", "gets this way when she has a urinary tract infection", and the patient was treated with antibiotics / CT. ACUITY: (x ) Acute ( ) Acute on Chronic ( ) Chronic ( ) Clinically unable to determine NATURE: ( ) Delirium due to general medical condition ( ) Dementia (x ) Encephalopathy ( ) Acute Infectious Encephalopathy ( ) Unconscious ( ) Transient level of awareness ( ) Comatose ( ) Locked-in State ( ) Persistent Vegetative State ( ) Other, please specify: ( ) Clinically unable to determine Please indicate the underlying cause of the altered mental status (CHECK ALL THAT APPLY): ( ) Baseline dementia ( ) Alzheimer's disease ( ) Parkinson's disease ( ) Lewy body dementia ( ) Acute stroke ( ) Late effect of stroke ( ) Reactive (from emotional stress, psychological trauma) ( ) Due to narcotics/other drugs ( ) Post procedural delirium ( ) Transient ischemic attack ( ) Generalized cerebral edema ( ) Normal pressure hydrocephalus ( ) Psychiatric illness ( x) Other, please specify: uti ( ) Clinically unable to determine Please indicate if there is an infection, sepsis, dehydration or specific organ failure that is causing the dementia. Be specific with clarifying the relationship between that process and the mental status change. COMMENTS: PLEASE ALSO DOCUMENT RESPONSE IN PROGRESS NOTES AND/OR DISCHARGE SUMMARY Use of terms such as suspected, likely, or probable (associated with a specific diagnosis that is being evaluated, monitored, or treated as if it exists) are acceptable and can be restated in the discharge summary if not ruled out. MTDD
[2017-07-10] MEDS: DOXEPIN HCL TOP SCH (11:30)
--- NOTE | 2017-07-10 11:45 | Hospitalist Progress Note ---
Assessment and Plan (1) Acute UTI Status: Acute Assessment and plan: Patient is improving with the antibiotic treatment culture showed Proteus vulgaris. Due to once a day dosing of ertapenem will be started. There is no p.o. antibiotics except Bactrim as an option but patient is allergic to Bactrim Current Visit: Yes (2) Altered mental status Status: Acute Assessment and plan: Improved Current Visit: Yes (3) Diabetes Status: Acute Assessment and plan: Blood sugars controlled continue current insulin regimen Current Visit: No Qualifiers: Diabetes mellitus type: type 2 Diabetes mellitus complication status: with circulatory complication (4) Sacral decubitus ulcer, stage III Status: Acute Assessment and plan: Continue wound care Current Visit: No (5) Hypertension Status: Chronic Assessment and plan: Controlled Current Visit: No (6) Hypokalemia Status: Acute Assessment and plan: Order potassium chloride p.o. She is off diuretics now Current Visit: Yes (7) Chronic anticoagulation Status: Acute Assessment and plan: Patient has been on Coumadin for about 9 years. She says she had the" blood clot in Lngs" and it is prescribed by her primary care physician. Noted INR is supratherapeutic will consult pharmacy to manage warfarin dose. Patient is encouraged to follow with his primary care after discharge for clearance on duration of anticoagulation treatment Current Visit: No (8) Anemia Status: Acute Assessment and plan: There is no overt bleeding except patient has sacral decubitus ulcer. I will get iron studies B12 and folate level and repeat hemoglobin hematocrit tomorrow Current Visit: Yes Hospitalist: Subjective Interval history: Mr. Diana is a 69-year-old female with history of diabetes hypertension CVA and bedbound with a sacral decubitus ulcer and chronic indwelling urinary catheter. She was admitted yesterday with the altered mental status and suspected urinary tract infection. She had a temp of 99.3 in the ER but had leukocytosis WBC count was 13.3. Patient has been on meropenem for suspected UTI Patient mental status significantly improved after antibiotic treatment. He has indwelling bladder catheter the which was asked arceo yesterday. She has been afebrile Exam - Constitutional Vitals: Period Temp Pulse Resp BP Sys/Valadez Pulse Ox Last 24 Hr 96.9 F-99 F 81-92 18-20 97-132/47-78 95-98 General appearance: no acute distress - Respiratory Respiratory exam: Present: clear to auscultation bilaterally. Absent: rales, rhonchi - Cardiovascular Cardiovascular exam: Present: regular rate and rhythm. Absent: tachycardia - GI/Abdominal GI/Abdominal exam: Present: normal bowel sounds, soft. Absent: distended, tenderness - Extremities Exam Extremities exam: Present: other (Sacral decubitus ulcer noted). Absent: edema - Neurological Exam Neurological exam: Present: alert - Skin Skin exam: Present: normal color Results - Labs CBC & BMP: 07/10/17 06:22 07/10/17 06:22 Lab Results: I have reviewed the past 24 hour labs Quality Measures - VTE Contraindication to Pharmacological VTE Prophylaxis: Already on Theraputic Agent , No Prophylaxis Needed
[2017-07-10] MEDS ORDERED: POTASSIUM CHLORIDE INJ 40 MEQ, SODIUM CHLORIDE 23.4% CONC INJ 38.5 MEQ in STERILE WATER... IV SCH (12:00)
[2017-07-10] MEDS ORDERED: POTASSIUM CHLORIDE 20 MEQ TABLET PO ONE (13:00)
[2017-07-10] MEDS: ERTAPENEM 1,000 MG in SODIUM CHLORIDE 0.9% 100 ML IV SCH (13:24)
[2017-07-10] MEDS: WARFARIN 2.5 MG TABLET PO SCH (18:12)
[2017-07-10] MEDS: BIMATOPROST 0.01% OPH SOLN 2.5 ML BOTTLE BOTH EYES SCH (20:55)
[2017-07-10] MEDS: INSULIN GLARGINE 100 UNIT/ML SUBCUT SCH (22:00)
[2017-07-11] MEDS: SODIUM CHLORIDE 0.9% 1,000 ML IV SCH (06:21)
[2017-07-11] MEDS: ACETAMINOPHEN 325 MG TABLET PO PRN ×3 (06:40→21:08)
[2017-07-11 06:41] LABS: Basophils # 0.1 10*3/uL (0.0-0.2); Basophils % 0.6 % (0.0-0.8); Eosinophils # 0.6 10*3/uL (0.0-0.87); Hemoglobin 8.7 GM/DL (12.0-16.0); Immature Granulocytes % 0.3 %; Immature Granulocytes Absolute 0.03 #; Lymphocytes # 1.7 10*3/uL (1.4-4.0); Lymphocytes % 16.5 % (21.3-54.2); Mean Corpuscular HGB Conc 31.1 GM/DL (32-36); Mean Corpuscular Hemoglobin 26 PG (27-34); Mean Corpuscular Volume 84.8 FL (87-102); Mean Platelet Volume 9.8 FL (9.6-12.0); Monocytes # 0.6 10*3/uL (0.11-0.8); Monocytes % 5.4 % (1.7-12.7); Neutrophils # 7.4 10*3/uL (1.4-7.4); Neutrophils % 71.2 % (38.7-73.9); Platelet Count 461 T/CUMM (130-400); Red Cell Distribution Width 16.5 % (9.3-17.3); White Blood Count 10.5 T/CUMM (4-12)
[2017-07-11 07:01] LABS: INR 3.5
[2017-07-11 07:04] LABS: Calcium 7.9 MG/DL (8.5-10.1); Ferritin 35.6 ng/ml (8-252); Osmolality,Calculated 289.3 MOS/KG (273-304); Potassium 3.6 MMOL/L (3.5-5.1)
[2017-07-11 07:05] LABS: Albumin 2.1 G/DL (3.4-5.0); Bilirubin,Total 0.5 MG/DL (0.2-1.0); Calcium 8.2 MG/DL (8.5-10.1); Osmolality,Calculated 289.3 MOS/KG (273-304); PT Patient Result 40.6 SECS; Partial Thromboplastin Time 50.7 SECS (0-40); Potassium 3.7 MMOL/L (3.5-5.1); Total Protein 5.5 G/DL (6.4-8.3)
[2017-07-11 07:11] LABS: Folate 4.3 NG/ML (5.4-24.0)
[2017-07-11] MEDS: METOCLOPRAMIDE 5 MG TABLET PO SCH ×4 (09:22→21:08)
[2017-07-11] MEDS: ISOSORBIDE MONONITRATE 30 MG TABLET PO SCH (09:23)
[2017-07-11] MEDS: METHENAMINE HIPPURATE 1 GM TABLET PO SCH ×2 (09:23→21:08)
[2017-07-11] MEDS: GABAPENTIN 600 MG TABLET PO SCH ×3 (09:26→21:08)
[2017-07-11] MEDS: SPIRONOLACTONE 50 MG TABLET PO SCH (09:27)
[2017-07-11] MEDS: MAGNESIUM OXIDE 400 MG TABLET PO SCH ×2 (09:27→21:09)
[2017-07-11] MEDS: metFORMIN 500 MG TABLET PO SCH ×2 (09:28→16:07)
[2017-07-11] MEDS: PANTOPRAZOLE 40 MG TABLET PO SCH (09:28)
[2017-07-11] MEDS: DOCUSATE SODIUM 100 MG CAPSULE PO SCH ×2 (09:29→21:09)
[2017-07-11] MEDS: ERTAPENEM 1,000 MG in SODIUM CHLORIDE 0.9% 100 ML IV SCH (09:32)
[2017-07-11] MEDS: BRIMONIDINE 0.1% OPH SOLN 5 ML BOTTLE BOTH EYES SCH ×2 (09:34→21:09)
[2017-07-11] MEDS: DOXEPIN HCL TOP SCH (09:40)
[2017-07-11] MEDS: SODIUM HYPOCHLORITE 0.25% IRRIG 473 ML BOTTLE TOP SCH (09:40)
--- NOTE | 2017-07-11 12:14 | Hospitalist Progress Note ---
Assessment and Plan (1) Acute UTI Status: Acute Assessment and plan: We will continue ertapenem. Continue complete at least 7 days of antibiotic treatment Current Visit: Yes (2) Altered mental status Status: Acute Assessment and plan: Resolved Current Visit: Yes (3) Diabetes Status: Acute Assessment and plan: Blood sugars controlled continue current insulin regimen Current Visit: No Qualifiers: Diabetes mellitus type: type 2 Diabetes mellitus complication status: with circulatory complication (4) Sacral decubitus ulcer, stage III Status: Acute Assessment and plan: Continue wound care Current Visit: No (5) Hypertension Status: Chronic Assessment and plan: Controlled Current Visit: No (6) Hypokalemia Status: Acute Assessment and plan: Order potassium chloride p.o. She is off diuretics now Current Visit: Yes (7) Chronic anticoagulation Status: Acute Assessment and plan: Patient has been on Coumadin for about 9 years. She says she had the" blood clot in Lngs" and it is prescribed by her primary care physician. Noted INR is supratherapeutic will consult pharmacy to manage warfarin dose. Patient is encouraged to follow with his primary care after discharge for clearance on duration of anticoagulation treatment Current Visit: No (8) Anemia Status: Acute Assessment and plan: There is no overt bleeding except patient has sacral decubitus ulcer. I will get iron studies B12 and folate level and repeat hemoglobin hematocrit tomorrow Current Visit: Yes Hospitalist: Subjective Interval history: Mr. Diana is a 69-year-old female with history of diabetes hypertension CVA and bedbound with a sacral decubitus ulcer and chronic indwelling urinary catheter. She was admitted on 07/08/2017 with the altered mental status and suspected urinary tract infection. She had a temp of 99.3 in the ER but had leukocytosis WBC count was 13.3. Patient mental status significantly improved after antibiotic treatment. He has indwelling bladder catheter the which was changed She has been afebrile without any acute symptom. Antibiotic was changed to ertapenem for once a day dosing Exam - Constitutional Vitals: Period Temp Pulse Resp BP Sys/Valadez Pulse Ox Last 24 Hr 96.6 F-98.4 F 83-96 14-22 108-135/53-71 94-98 General appearance: no acute distress - Respiratory Respiratory exam: Present: clear to auscultation bilaterally. Absent: rales, rhonchi - Cardiovascular Cardiovascular exam: Present: regular rate and rhythm. Absent: tachycardia - GI/Abdominal GI/Abdominal exam: Present: normal bowel sounds, soft. Absent: distended, tenderness - Extremities Exam Extremities exam: Present: other (Sacral decubitus ulcer noted). Absent: edema - Neurological Exam Neurological exam: Present: alert - Skin Skin exam: Present: normal color Results - Labs CBC & BMP: 07/11/17 05:58 07/11/17 05:58 Lab Results: I have reviewed the past 24 hour labs Quality Measures - VTE Contraindication to Pharmacological VTE Prophylaxis: Already on Theraputic Agent , No Prophylaxis Needed
[2017-07-11] MEDS: WARFARIN 2.5 MG TABLET PO SCH (18:14)
[2017-07-11] MEDS: BIMATOPROST 0.01% OPH SOLN 2.5 ML BOTTLE BOTH EYES SCH (21:09)
[2017-07-11] MEDS: INSULIN GLARGINE 100 UNIT/ML SUBCUT SCH (21:41)
[2017-07-12] MEDS: ACETAMINOPHEN 325 MG TABLET PO PRN ×4 (01:00→20:08)
[2017-07-12 06:30] LABS: INR 2.8
[2017-07-12 06:48] LABS: PT Patient Result 31.7 SECS
[2017-07-12] MEDS: MAGNESIUM OXIDE 400 MG TABLET PO SCH ×2 (10:01→20:08)
[2017-07-12] MEDS: METOCLOPRAMIDE 5 MG TABLET PO SCH ×4 (10:01→20:08)
[2017-07-12] MEDS: ISOSORBIDE MONONITRATE 30 MG TABLET PO SCH (10:02)
[2017-07-12] MEDS: METHENAMINE HIPPURATE 1 GM TABLET PO SCH ×2 (10:03→20:08)
[2017-07-12] MEDS: metFORMIN 500 MG TABLET PO SCH ×2 (10:03→17:39)
[2017-07-12] MEDS: GABAPENTIN 600 MG TABLET PO SCH ×3 (10:04→20:08)
[2017-07-12] MEDS: PANTOPRAZOLE 40 MG TABLET PO SCH (10:04)
[2017-07-12] MEDS: DOCUSATE SODIUM 100 MG CAPSULE PO SCH ×2 (10:06→21:47)
[2017-07-12] MEDS: SODIUM HYPOCHLORITE 0.25% IRRIG 473 ML BOTTLE TOP SCH (10:06)
[2017-07-12] MEDS: ERTAPENEM 1,000 MG in SODIUM CHLORIDE 0.9% 100 ML IV SCH (10:13)
[2017-07-12] MEDS: BACLOFEN 20 MG TABLET PO PRN ×2 (10:14→20:08)
[2017-07-12] MEDS: SPIRONOLACTONE 50 MG TABLET PO SCH (10:17)
[2017-07-12] MEDS: BRIMONIDINE 0.1% OPH SOLN 5 ML BOTTLE BOTH EYES SCH ×2 (10:17→20:10)
[2017-07-12] MEDS: DOXEPIN HCL TOP SCH (10:18)
--- NOTE | 2017-07-12 11:24 | Hospitalist Progress Note ---
Assessment and Plan (1) Acute UTI Status: Acute Assessment and plan: We will continue ertapenem. Continue complete at least 7 days of IV antibody antibiotic treatment . Bladder catheter was changed already Current Visit: Yes (2) Altered mental status Status: Acute Assessment and plan: Resolved Current Visit: Yes (3) Diabetes Status: Acute Assessment and plan: Blood sugars controlled continue current regimen Current Visit: No Qualifiers: Diabetes mellitus type: type 2 Diabetes mellitus complication status: with circulatory complication (4) Sacral decubitus ulcer, stage III Status: Acute Assessment and plan: Continue wound care Current Visit: No (5) Hypertension Status: Chronic Assessment and plan: Controlled Current Visit: No (6) Hypokalemia Status: Acute Assessment and plan: It was replaced with p.o. KCl. She is off diuretics now labs ordered for tomorrow morning Current Visit: Yes (7) Chronic anticoagulation Status: Acute Assessment and plan: Patient has been on Coumadin for about 9 years. She says she had the" blood clot in Lngs" and it is prescribed by her primary care physician. Patient had supratherapeutic INR Coumadin dose was adjusted by the pharmacy to 2.5 mg daily and now she has therapeutic INR Patient is advised to follow with his primary care after discharge to discuss duration of anticoagulation treatment Current Visit: No (8) Anemia Status: Acute Assessment and plan: There is no overt bleeding except patient has sacral decubitus ulcer. His stool occult Hemoccult was negative , hemoglobinl had been stable will order for repeat hemoglobin tomorrow and to start on ferrous sulfate based on iron deficiency seen on workup. Chronic slow bleed from the sacral wound could be contributing . She also has folate deficiency we will start on folic acid also. Current Visit: Yes (9) Hypernatremia Status: Acute Assessment and plan: Patient is off loop diuretics I will get the repeat labs for tomorrow morning Current Visit: Yes Hospitalist: Subjective Interval history: Ms. Diana is a 69-year-old female with history of diabetes hypertension CVA and bedbound with a sacral decubitus ulcer and chronic indwelling urinary catheter. She was admitted on 07/08/2017 with the altered mental status and suspected urinary tract infection. She had a temp of 99.3 in the ER but had leukocytosis WBC count was 13.3. Catheter was changed after the admission Continued to be afebrile no acute symptoms Exam - Constitutional Vitals: Period Temp Pulse Resp BP Sys/Valadez Pulse Ox Last 24 Hr 96.7 F-97.7 F 84-100 16-22 117-139/59-81 92-98 General appearance: no acute distress - Respiratory Respiratory exam: Present: clear to auscultation bilaterally. Absent: rales, rhonchi - Cardiovascular Cardiovascular exam: Present: regular rate and rhythm. Absent: tachycardia - GI/Abdominal GI/Abdominal exam: Present: normal bowel sounds, soft. Absent: distended, tenderness - Extremities Exam Extremities exam: Present: other (Sacral decubitus ulcer noted). Absent: edema - Neurological Exam Neurological exam: Present: alert - Skin Skin exam: Present: normal color - Back Exam Back exam: Present: other (Stage III sacral ulcer dressed) Results - Labs CBC & BMP: 07/11/17 05:58 07/11/17 05:58 Quality Measures - VTE Contraindication to Pharmacological VTE Prophylaxis: Already on Theraputic Agent , No Prophylaxis Needed
[2017-07-12] MEDS: WARFARIN 2.5 MG TABLET PO SCH (17:38)
[2017-07-12] MEDS: FERROUS SULFATE 325 MG TABLET PO SCH (20:08)
[2017-07-12] MEDS: BIMATOPROST 0.01% OPH SOLN 2.5 ML BOTTLE BOTH EYES SCH (20:10)
[2017-07-12] MEDS: INSULIN GLARGINE 100 UNIT/ML SUBCUT SCH (21:48)
[2017-07-13] MEDS: ACETAMINOPHEN 325 MG TABLET PO PRN ×5 (03:47→18:20)
[2017-07-13 06:04] LABS: Basophils # 0.1 10*3/uL (0.0-0.2); Basophils % 0.5 % (0.0-0.8); Eosinophils # 0.9 10*3/uL (0.0-0.87); Eosinophils % 9.8 % (0.00-10.9); Hematocrit 27.8 VOL% (35.7-47.0); Hemoglobin 8.5 GM/DL (12.0-16.0); Immature Granulocytes % 0.2 %; Immature Granulocytes Absolute 0.02 #; Lymphocytes # 2.3 10*3/uL (1.4-4.0); Lymphocytes % 23.8 % (21.3-54.2); Mean Corpuscular HGB Conc 30.6 GM/DL (32-36); Mean Corpuscular Hemoglobin 26 PG (27-34); Mean Corpuscular Volume 85.5 FL (87-102); Mean Platelet Volume 9.9 FL (9.6-12.0); Monocytes # 0.7 10*3/uL (0.11-0.8); Monocytes % 7.7 % (1.7-12.7); Neutrophils # 5.6 10*3/uL (1.4-7.4); Platelet Count 437 T/CUMM (130-400); Red Blood Count 3.25 MC/CUMM (3.8-5.5); Red Cell Distribution Width 16.5 % (9.3-17.3); White Blood Count 9.6 T/CUMM (4-12)
[2017-07-13 06:30] LABS: Calcium 8.3 MG/DL (8.5-10.1); Osmolality,Calculated 287.4 MOS/KG (273-304); Potassium 4.1 MMOL/L (3.5-5.1)
[2017-07-13] MEDS: MAGNESIUM OXIDE 400 MG TABLET PO SCH ×2 (09:59→20:52)
[2017-07-13] MEDS: METOCLOPRAMIDE 5 MG TABLET PO SCH ×4 (09:59→20:52)
[2017-07-13] MEDS: ISOSORBIDE MONONITRATE 30 MG TABLET PO SCH (10:00)
[2017-07-13] MEDS: GABAPENTIN 600 MG TABLET PO SCH ×3 (10:00→20:52)
[2017-07-13] MEDS: metFORMIN 500 MG TABLET PO SCH ×2 (10:00→17:14)
[2017-07-13] MEDS: PANTOPRAZOLE 40 MG TABLET PO SCH (10:00)
[2017-07-13] MEDS: SPIRONOLACTONE 50 MG TABLET PO SCH (10:00)
[2017-07-13] MEDS: FOLIC ACID 1 MG TABLET PO SCH (10:00)
[2017-07-13] MEDS: FERROUS SULFATE 325 MG TABLET PO SCH ×2 (10:00→20:52)
[2017-07-13] MEDS: METHENAMINE HIPPURATE 1 GM TABLET PO SCH ×2 (10:00→20:56)
[2017-07-13] MEDS: BRIMONIDINE 0.1% OPH SOLN 5 ML BOTTLE BOTH EYES SCH ×2 (10:06→20:51)
[2017-07-13] MEDS: ERTAPENEM 1,000 MG in SODIUM CHLORIDE 0.9% 100 ML IV SCH (10:08)
[2017-07-13] MEDS: DOCUSATE SODIUM 100 MG CAPSULE PO SCH ×2 (10:59→20:58)
[2017-07-13] MEDS: SODIUM HYPOCHLORITE 0.25% IRRIG 473 ML BOTTLE TOP SCH (11:47)
--- NOTE | 2017-07-13 15:31 | Hospitalist Progress Note ---
Assessment and Plan (1) Complicated UTI (urinary tract infection) Status: Acute Assessment and plan: Patient has 2 gram-negative rods in the urine with a chronic indwelling Bolanos catheter. Has a neurogenic bladder. The organism is intermediate at the serum levels of DESIRE's to the antibiotic used. I will repeat UA and reflex cultures. Reassess the patient in the morning Current Visit: Yes (2) Neurogenic bladder Status: Acute Assessment and plan: Continue Bolanos catheter Current Visit: Yes (3) Paraplegia Status: Acute Current Visit: Yes Hospitalist: Subjective Interval history: Patient has been seen interviewed and examined and chart has been reviewed. Admitted hospital urinary tract infection. This patient seemed to have a recurrent infection of such including in April when there was involvement of bacteremia with both gram-negative infection as well as an Enterococcus faecalis. Patient was treated at that time for short course with beta-lactam- based treatment. Comes back now with a urinary tract infection with 2 organisms one is Proteus vulgaris and Providencia stuartii. Both of these are sensitive to third-generation cephalosporins intermediate to carbapenem tested. Patient is on Invanz. Encourage he seemed to have done better that could be secondary to higher levels of the antibiotic repeat a urinalysis still polyuric and infected patient need to be changed to a third-generation cephalosporin. Otherwise patient can be discharged in the coming 20 448 hour Exam - Constitutional Vitals: Period Temp Pulse Resp BP Sys/Valadez Pulse Ox Last 24 Hr 96.6 F-98.6 F 76-91 16-24 114-129/70-78 95-98 General appearance: over weight - Head Head exam: Present: normocephalic, atraumatic - Eye Eye exam: Present: EOMI Pupils: Present: ONEIL - ENT ENT exam: Present: normal exam - Neck Neck exam: Present: normal inspection - Respiratory Respiratory exam: Present: clear to auscultation bilaterally - Cardiovascular Cardiovascular exam: Present: regular rate and rhythm - GI/Abdominal GI/Abdominal exam: Present: normal bowel sounds, soft - Extremities Exam Extremities exam: Present: other (Paraplegic patient also has a neurogenic bladder and chronic Bolanos catheter. This UTI is associated with catheter) - Neurological Exam Neurological exam: Present: alert, oriented X3, CN II-XII intact - Psychiatric Psychiatric exam: Present: normal affect, normal mood - Skin Skin exam: Present: normal color, warm, dry Results - Labs CBC & BMP: 07/13/17 04:48 07/13/17 04:48 Lab Results: I have reviewed the past 24 hour labs Quality Measures - VTE Contraindication to Pharmacological VTE Prophylaxis: Already on Theraputic Agent , No Prophylaxis Needed
[2017-07-13] MEDS: DOXEPIN HCL TOP SCH (15:43)
[2017-07-13] MEDS: BACLOFEN 20 MG TABLET PO PRN (15:54)
[2017-07-13 17:03] LABS: Apearance,Urine Slightly Hazy (Clear); Bacteria,Urine Occasional /HPF (Few); Bilirubin,Urine Negative (Negative); Blood, Urine Negative (Negative); Glucose,Urine (UA) Negative (Negative); Ketones,Urine Negative (Negative); Mucus,Urine Occasional /LPF (Occasional); Nitrite,Urine Negative (Negative); Protein,Urine Negative; RBC,Urine 7 /HPF (0-4); Squamous Epithelial Cell,Urine Occasional /HPF (0-10); Urine Color Yellow (Yellow); Urine Specific Gravity 1.015 (1.001-1.035); Urine Urobilinogen < 2.0 EU/DL (0.2-1.0); WBC,Urine 100 /HPF (0-6)
[2017-07-13] MEDS: WARFARIN 2.5 MG TABLET PO SCH (17:14)
[2017-07-13] MEDS: BIMATOPROST 0.01% OPH SOLN 2.5 ML BOTTLE BOTH EYES SCH (20:52)
[2017-07-13] MEDS: INSULIN GLARGINE 100 UNIT/ML SUBCUT SCH (20:53)
[2017-07-14] MEDS: ACETAMINOPHEN 325 MG TABLET PO PRN ×5 (00:14→19:48)
[2017-07-14] MEDS: METOCLOPRAMIDE 5 MG TABLET PO SCH ×4 (07:12→21:04)
[2017-07-14] MEDS: metFORMIN 500 MG TABLET PO SCH ×2 (07:12→16:57)
[2017-07-14 08:08] LABS: INR 3.1
[2017-07-14 08:09] LABS: PT Patient Result 35.4 SECS
[2017-07-14] MEDS: ISOSORBIDE MONONITRATE 30 MG TABLET PO SCH (08:25)
[2017-07-14] MEDS: METHENAMINE HIPPURATE 1 GM TABLET PO SCH ×2 (08:25→21:04)
[2017-07-14] MEDS: GABAPENTIN 600 MG TABLET PO SCH ×3 (08:25→21:05)
[2017-07-14] MEDS: BACLOFEN 20 MG TABLET PO PRN ×2 (08:25→17:55)
[2017-07-14] MEDS: FERROUS SULFATE 325 MG TABLET PO SCH ×2 (08:25→21:05)
[2017-07-14] MEDS: ERTAPENEM 1,000 MG in SODIUM CHLORIDE 0.9% 100 ML IV SCH (08:26)
[2017-07-14] MEDS: BRIMONIDINE 0.1% OPH SOLN 5 ML BOTTLE BOTH EYES SCH ×2 (08:26→21:09)
[2017-07-14] MEDS: SPIRONOLACTONE 50 MG TABLET PO SCH (08:26)
[2017-07-14] MEDS: PANTOPRAZOLE 40 MG TABLET PO SCH (08:26)
[2017-07-14] MEDS: MAGNESIUM OXIDE 400 MG TABLET PO SCH ×2 (08:26→21:05)
[2017-07-14] MEDS: DOCUSATE SODIUM 100 MG CAPSULE PO SCH ×2 (09:52→21:05)
[2017-07-14] MEDS: DOXEPIN HCL TOP SCH (09:53)
[2017-07-14] MEDS: FOLIC ACID 1 MG TABLET PO SCH (09:53)
[2017-07-14] MEDS: SODIUM HYPOCHLORITE 0.25% IRRIG 473 ML BOTTLE TOP SCH (09:55)
[2017-07-14] MEDS: cefTRIAXone 2,000 MG in SODIUM CHLORIDE 0.9% 100 ML IV SCH (10:39)
--- NOTE | 2017-07-14 11:24 | XRay Report ---
AP pelvis July 14, 2017 Indication: Pelvic pain Comparison images not available Findings: Osseous structures are demineralized. Image quality is somewhat underpenetrated limited secondary to patient's body habitus. Degenerative changes throughout the visualized lower lumbar spine. No fracture or dislocation. Gas pattern is normal. Vascular plaquing along the iliac vessels are noted, left greater than right. Impression: 1. Limited study secondary to patient's body habitus and technique 2. No gross fracture or dislocation 3. Osseous demineralization. If Clinically concern for occult fracture, noncontrast CT pelvis is suggested PROCEDURE INTERPRETED AT [facility] DEPARTMENT OF RADIOLOGY Final Report Signed by: Jarad Garcia
[2017-07-14] MEDS: MICAFUNGIN 100 MG in SODIUM CHLORIDE 0.9% 100 ML IV SCH (12:17)
--- NOTE | 2017-07-14 14:00 | Hospitalist Progress Note ---
Assessment and Plan (1) Complicated UTI (urinary tract infection) Status: Acute Assessment and plan: Discontinue Invanz started patient on ceftriaxone. Noted that these gram negatives isolated of them use intermediate to Imipenem. Start the patient on micafungin 100 mg IV every day for 3 days. Urinalysis around Sunday this coming week. If the Bolanos catheter has been there for more than 4 weeks we will treat today. Current Visit: Yes (2) Neurogenic bladder Status: Acute Assessment and plan: Continue Bolanos catheter; will change it if it has been there for more than 4 weeks Current Visit: Yes (3) Paraplegia Status: Acute Current Visit: Yes Hospitalist: Subjective Interval history: Patient has been seen interviewed and examined chart has been reviewed. No particular complaints today. Admitted to the hospital with complicated urinary tract infection with Proteus vulgaris and the Providencia stuartii as tolerated. Providencia stuartii is multidrug-resistant gram-negative Road on the for Proteus species is resistant but not that much. They are both sensitive to third-generation cephalosporin. Repeated urinalysis yesterday still showing significant pyuria and presence of yeast. This patient is on warfarin therefore forego use of fluconazole and to use a candin (micafungin). Repeat urinalysis around Sunday if he is not created, continue systemic treatment. She has limited oral choices of antibiotics. In April she did have another urinary tract infection that time with bacteremia. Her biggest problem is that she has a neurogenic bladder and has an indwelling Bolanos catheter. This Bolanos cath has been there for more than 4 weeks will need to change it. Nursing has been informed Exam - Constitutional Vitals: Period Temp Pulse Resp BP Sys/Valadez Pulse Ox Last 24 Hr 96.4 F-97.7 F 74-87 17-20 101-130/55-86 92-100 General appearance: no acute distress, over weight - Head Head exam: Present: normocephalic, atraumatic - Eye Eye exam: Present: EOMI Pupils: Present: ONEIL - ENT ENT exam: Present: normal exam - Neck Neck exam: Present: normal inspection - Respiratory Respiratory exam: Present: clear to auscultation bilaterally - Cardiovascular Cardiovascular exam: Present: regular rate and rhythm - GI/Abdominal GI/Abdominal exam: Present: normal bowel sounds, soft, other (Complained of a pain in the superior wing of the left pelvis. She states that his pain is been there for a long time. Is reproducible by palpation. Plain x-ray of the pelvic girdle has been ordered) - Extremities Exam Extremities exam: Present: other (Paraplegia) - Neurological Exam Neurological exam: Present: alert, oriented X3, CN II-XII intact - Psychiatric Psychiatric exam: Present: normal affect, normal mood - Skin Skin exam: Present: normal color, warm, dry Results - Labs CBC & BMP: 07/13/17 04:48 07/13/17 04:48 Lab Results: I have reviewed the past 24 hour labs Quality Measures - VTE Contraindication to Pharmacological VTE Prophylaxis: Already on Theraputic Agent , No Prophylaxis Needed
[2017-07-14] MEDS: WARFARIN 2.5 MG TABLET PO SCH (17:00)
[2017-07-14] MEDS: BIMATOPROST 0.01% OPH SOLN 2.5 ML BOTTLE BOTH EYES SCH (21:09)
[2017-07-14] MEDS: INSULIN GLARGINE 100 UNIT/ML SUBCUT SCH (21:10)
[2017-07-15] MEDS: ACETAMINOPHEN 325 MG TABLET PO PRN ×3 (06:43→21:01)
--- NOTE | 2017-07-15 09:08 | Hospitalist Progress Note ---
Hospitalist: Subjective Interval history: Pt reports Baclofen helps her muscle spasms of left leg. No fever. Bolanos catheter was changed 2 days ago. She reports rectal irritation. Tolerating oral intake. No abd pain. Last BM overnight- soft. No diarrhea. No cp or SOB. Exam - Constitutional Vitals: Period Temp Pulse Resp BP Sys/Valadez Pulse Ox Last 24 Hr 96.4 F-98.7 F 67-94 18-22 110-122/60-67 94-100 Exam: GEN: Awake, alert and oriented x 3, lying in bed in NAD HEENT: no thrush. Clear sclera CV: RRR nl S1/ S2. No M/R/G LUNGS: CTAB nonlabored ABD: Soft, NT, ND, +BS EXT: Warm. No clubbing, cyanosis or edema Neuro: paraplegic Results - Labs CBC & BMP: 07/13/17 04:48 07/13/17 04:48 - Impressions (1) Complicated UTI (urinary tract infection) due to Proteus and Providencii catheter related- present on admission Status: Acute Assessment and plan: Cont Rocephin. Cont Micafungin 100 mg IV every day for 3 days. Plan is to recheck UA around Sunday this coming week. Bolanos changed 07/13 per pt. Current Visit: Yes (2) Neurogenic bladder Status: Acute Assessment and plan: Continue Bolanos catheter (last changed 07/13 per pt) Current Visit: Yes (3) Paraplegia Status: Chronic Current Visit: Yes (4) History of PE - on Coumadin therapy. Check INR in am. Goal INR 2-3 (5) DM2 - BS controlled. Cont current therapy (Lantus and Metformin) (6) Decubitus ulcer (POA) - off loading and local wound care. (7) HTN, Essential - controlled. DVT prophylaxis- on Coumadin - Will order rectal preparation H and nystatin powder for groin. D/W pt and nurse. all questions answered. I will be away several days. One of my associates will follow in my absence. Quality Measures - VTE Contraindication to Pharmacological VTE Prophylaxis: Already on Theraputic Agent , No Prophylaxis Needed
[2017-07-15] MEDS: FERROUS SULFATE 325 MG TABLET PO SCH ×2 (09:18→21:02)
[2017-07-15] MEDS: METOCLOPRAMIDE 5 MG TABLET PO SCH ×4 (09:18→21:02)
[2017-07-15] MEDS: METHENAMINE HIPPURATE 1 GM TABLET PO SCH ×2 (09:18→21:02)
[2017-07-15] MEDS: FOLIC ACID 1 MG TABLET PO SCH (09:18)
[2017-07-15] MEDS: MAGNESIUM OXIDE 400 MG TABLET PO SCH ×2 (09:18→21:02)
[2017-07-15] MEDS: metFORMIN 500 MG TABLET PO SCH ×2 (09:19→18:22)
[2017-07-15] MEDS: GABAPENTIN 600 MG TABLET PO SCH ×3 (09:20→21:02)
[2017-07-15] MEDS: SPIRONOLACTONE 50 MG TABLET PO SCH (09:20)
[2017-07-15] MEDS: DOCUSATE SODIUM 100 MG CAPSULE PO SCH ×2 (09:20→21:10)
[2017-07-15] MEDS: ISOSORBIDE MONONITRATE 30 MG TABLET PO SCH (09:20)
[2017-07-15] MEDS: PANTOPRAZOLE 40 MG TABLET PO SCH (09:20)
[2017-07-15] MEDS: BRIMONIDINE 0.1% OPH SOLN 5 ML BOTTLE BOTH EYES SCH ×2 (09:23→21:08)
[2017-07-15] MEDS: MICAFUNGIN 100 MG in SODIUM CHLORIDE 0.9% 100 ML IV SCH (10:23)
[2017-07-15] MEDS: SODIUM HYPOCHLORITE 0.25% IRRIG 473 ML BOTTLE TOP SCH (10:27)
[2017-07-15] MEDS: DOXEPIN HCL TOP SCH (10:32)
[2017-07-15] MEDS: cefTRIAXone 2,000 MG in SODIUM CHLORIDE 0.9% 100 ML IV SCH (11:35)
[2017-07-15] MEDS ORDERED: PHENYLEPH/MINERAL OIL/PETROLAT 57 GM TUBE TOP PRN (11:41)
[2017-07-15] MEDS: WARFARIN 2.5 MG TABLET PO SCH (18:21)
[2017-07-15] MEDS: INSULIN GLARGINE 100 UNIT/ML SUBCUT SCH (21:02)
[2017-07-15] MEDS: NYSTATIN POWDER 15 GM BOTTLE TOP SCH (21:08)
[2017-07-15] MEDS: BIMATOPROST 0.01% OPH SOLN 2.5 ML BOTTLE BOTH EYES SCH (21:08)
[2017-07-16 04:25] LABS: INR 3.1
[2017-07-16 04:30] LABS: Calcium 8.1 MG/DL (8.5-10.1); Osmolality,Calculated 286.7 MOS/KG (273-304); Phosphorous 2.6 MG/DL (2.5-4.9); Potassium 4.3 MMOL/L (3.5-5.1)
[2017-07-16 05:24] LABS: PT Patient Result 35.5 SECS
[2017-07-16] MEDS: ACETAMINOPHEN 325 MG TABLET PO PRN ×3 (06:02→18:58)
[2017-07-16] MEDS: METOCLOPRAMIDE 5 MG TABLET PO SCH ×4 (09:23→20:35)
[2017-07-16] MEDS: MAGNESIUM OXIDE 400 MG TABLET PO SCH ×2 (09:23→20:35)
[2017-07-16] MEDS: FOLIC ACID 1 MG TABLET PO SCH (09:23)
[2017-07-16] MEDS: BRIMONIDINE 0.1% OPH SOLN 5 ML BOTTLE BOTH EYES SCH ×2 (09:23→20:35)
[2017-07-16] MEDS: PANTOPRAZOLE 40 MG TABLET PO SCH (09:23)
[2017-07-16] MEDS: GABAPENTIN 600 MG TABLET PO SCH ×3 (09:23→20:34)
[2017-07-16] MEDS: METHENAMINE HIPPURATE 1 GM TABLET PO SCH ×2 (09:23→20:40)
[2017-07-16] MEDS: ISOSORBIDE MONONITRATE 30 MG TABLET PO SCH (09:23)
[2017-07-16] MEDS: metFORMIN 500 MG TABLET PO SCH ×2 (09:23→17:28)
[2017-07-16] MEDS: SPIRONOLACTONE 50 MG TABLET PO SCH (09:23)
[2017-07-16] MEDS: FERROUS SULFATE 325 MG TABLET PO SCH ×2 (09:24→20:34)
[2017-07-16] MEDS: cefTRIAXone 2,000 MG in SODIUM CHLORIDE 0.9% 100 ML IV SCH (09:24)
[2017-07-16] MEDS: DOCUSATE SODIUM 100 MG CAPSULE PO SCH ×2 (09:24→20:36)
[2017-07-16] MEDS: BACLOFEN 20 MG TABLET PO PRN (11:16)
[2017-07-16] MEDS: MICAFUNGIN 100 MG in SODIUM CHLORIDE 0.9% 100 ML IV SCH (11:46)
--- NOTE | 2017-07-16 14:34 | Hospitalist Progress Note ---
Assessment and Plan (1) UTI (urinary tract infection) Status: Acute Assessment and plan: The patient continues treatment with Rocephin and micafungin for Chel, Proteus, probable dementia UTI. The patient has a chronic indwelling Bolanos catheter due to neurogenic bladder. Renal function remains stable with creatinine 0.7. INR is elevated to 3 I will have the nurses hold Coumadin today and will recheck pro time test tomorrow. The patient complains of hip and pelvis pain which is spasmodic and might be related to bladder spasm. Current Visit: No Qualifiers: Urinary tract infection type: acute cystitis Hematuria presence: without hematuria Qualified Code(s): N30.00 - Acute cystitis without hematuria (2) Paraplegia Status: Chronic Current Visit: No (3) Functional quadriplegia Status: Acute Current Visit: No (4) Neurogenic bladder Status: Acute Current Visit: Yes Hospitalist: Subjective Interval history: The patient continues anti-infective care for urinary tract infection which has isolated Chel, Proteus, and probable dementia. The patient is receiving Rocephin and micafungin. Exam - Constitutional Vitals: Period Temp Pulse Resp BP Sys/Valadez Pulse Ox Last 24 Hr 96.5 F-98.5 F 84-93 16-20 100-127/50-85 94-98 General appearance: mild distress - Respiratory Respiratory exam: Present: clear to auscultation bilaterally - Cardiovascular Cardiovascular exam: Present: regular rate and rhythm - GI/Abdominal GI/Abdominal exam: Present: normal bowel sounds Results - Labs CBC & BMP: 07/13/17 04:48 07/16/17 03:50 Lab Results: I have reviewed the past 24 hour labs Quality Measures - VTE Contraindication to Pharmacological VTE Prophylaxis: Already on Theraputic Agent , No Prophylaxis Needed
[2017-07-16] MEDS: SODIUM HYPOCHLORITE 0.25% IRRIG 473 ML BOTTLE TOP SCH (14:58)
[2017-07-16] MEDS: DOXEPIN HCL TOP SCH (14:58)
[2017-07-16] MEDS: NYSTATIN POWDER 15 GM BOTTLE TOP SCH ×2 (14:59→20:35)
[2017-07-16] MEDS: BIMATOPROST 0.01% OPH SOLN 2.5 ML BOTTLE BOTH EYES SCH (20:35)
[2017-07-16] MEDS: INSULIN GLARGINE 100 UNIT/ML SUBCUT SCH (20:35)
[2017-07-17] MEDS: ACETAMINOPHEN 325 MG TABLET PO PRN ×4 (03:07→21:28)
[2017-07-17 07:59] LABS: INR 2.7
[2017-07-17 08:01] LABS: PT Patient Result 30.1 SECS
[2017-07-17 08:07] LABS: Calcium 8.4 MG/DL (8.5-10.1); Osmolality,Calculated 281.8 MOS/KG (273-304); Potassium 4.5 MMOL/L (3.5-5.1)
[2017-07-17] MEDS: FERROUS SULFATE 325 MG TABLET PO SCH ×2 (08:42→21:28)
[2017-07-17] MEDS: GABAPENTIN 600 MG TABLET PO SCH ×3 (08:42→21:29)
[2017-07-17] MEDS: METHENAMINE HIPPURATE 1 GM TABLET PO SCH ×2 (08:42→21:28)
[2017-07-17] MEDS: metFORMIN 500 MG TABLET PO SCH ×2 (08:42→17:53)
[2017-07-17] MEDS: MAGNESIUM OXIDE 400 MG TABLET PO SCH ×2 (08:42→21:29)
[2017-07-17] MEDS: DOCUSATE SODIUM 100 MG CAPSULE PO SCH ×2 (08:43→21:29)
[2017-07-17] MEDS: SPIRONOLACTONE 50 MG TABLET PO SCH (08:43)
[2017-07-17] MEDS: SODIUM HYPOCHLORITE 0.25% IRRIG 473 ML BOTTLE TOP SCH (08:44)
[2017-07-17] MEDS: PANTOPRAZOLE 40 MG TABLET PO SCH (08:44)
[2017-07-17] MEDS: METOCLOPRAMIDE 5 MG TABLET PO SCH ×4 (08:44→21:29)
[2017-07-17] MEDS: DOXEPIN HCL TOP SCH (08:44)
[2017-07-17] MEDS: BRIMONIDINE 0.1% OPH SOLN 5 ML BOTTLE BOTH EYES SCH ×2 (08:44→21:27)
[2017-07-17] MEDS: ISOSORBIDE MONONITRATE 30 MG TABLET PO SCH (08:44)
[2017-07-17] MEDS: FOLIC ACID 1 MG TABLET PO SCH (08:44)
[2017-07-17] MEDS: NYSTATIN POWDER 15 GM BOTTLE TOP SCH ×2 (08:45→21:29)
--- NOTE | 2017-07-17 09:45 | Hospitalist Progress Note ---
Assessment and Plan (1) UTI (urinary tract infection) Status: Acute Assessment and plan: She continues on intravenous micafungin and ceftriaxone for Chel and Proteus urinary tract infection. Current Visit: No Qualifiers: Urinary tract infection type: acute cystitis Hematuria presence: without hematuria Qualified Code(s): N30.00 - Acute cystitis without hematuria (2) History of pulmonary embolism Status: Chronic Assessment and plan: Her warfarin was discontinued temporarily because of over anticoagulation. Her INR today is 2.7. I will restart her warfarin at a reduced dose of 2.0 mg p.o. daily. Current Visit: No (3) Diabetes Status: Acute Assessment and plan: Her glucose this morning is 74. She continues on Levemir insulin 75 units subcutaneous q. at bedtime and before meals at bedtime sliding scale insulin coverage. Current Visit: No Qualifiers: Diabetes mellitus type: type 2 Diabetes mellitus complication status: with circulatory complication (4) Acute renal failure Status: Resolved Assessment and plan: This problem is resolved. Her BUN and creatinine are 7 and 0.60 respectively today. Current Visit: No (5) Functional quadriplegia Status: Acute Current Visit: No (6) Neurogenic bladder Status: Acute Current Visit: Yes Hospitalist: Subjective Interval history: Patient appears stable today. She is comfortable with no new complaints. There were no significant events overnight. She continues on intravenous micafungin and ceftriaxone for Chel and Proteus urinary tract infection. Exam - Constitutional Vitals: Period Temp Pulse Resp BP Sys/Valadez Pulse Ox Last 24 Hr 96.4 F-98.3 F 74-84 16-20 107-123/53-71 93-96 General appearance: no acute distress - Head Head exam: Present: normal inspection - Neck Neck exam: Present: normal inspection - Respiratory Respiratory exam: Present: clear to auscultation bilaterally - Cardiovascular Cardiovascular exam: Present: regular rate and rhythm - GI/Abdominal GI/Abdominal exam: Present: normal bowel sounds, soft, other (Nontender with no palpable masses or hepatosplenomegaly.) - Extremities Exam Extremities exam: Present: normal inspection - Neurological Exam Neurological exam: Present: alert - Skin Skin exam: Present: normal color, warm, intact Results - Labs CBC & BMP: 07/13/17 04:48 07/17/17 05:37 Quality Measures - VTE Contraindication to Pharmacological VTE Prophylaxis: Already on Theraputic Agent , No Prophylaxis Needed
[2017-07-17] MEDS: MICAFUNGIN 100 MG in SODIUM CHLORIDE 0.9% 100 ML IV SCH (10:30)
[2017-07-17 10:59] LABS: INR 2.2
[2017-07-17] MEDS: BIMATOPROST 0.01% OPH SOLN 2.5 ML BOTTLE BOTH EYES SCH (21:27)
[2017-07-17] MEDS: INSULIN GLARGINE 100 UNIT/ML SUBCUT SCH (21:27)
[2017-07-18 04:18] LABS: Basophils # 0.1 10*3/uL (0.0-0.2); Basophils % 0.5 % (0.0-0.8); Eosinophils # 0.8 10*3/uL (0.0-0.87); Eosinophils % 7.2 % (0.00-10.9); Hematocrit 28.9 VOL% (35.7-47.0); Hemoglobin 8.8 GM/DL (12.0-16.0); Immature Granulocytes % 0.3 %; Immature Granulocytes Absolute 0.03 #; Lymphocytes # 2.7 10*3/uL (1.4-4.0); Lymphocytes % 24.3 % (21.3-54.2); Mean Corpuscular HGB Conc 30.4 GM/DL (32-36); Mean Corpuscular Hemoglobin 26 PG (27-34); Mean Platelet Volume 9.4 FL (9.6-12.0); Monocytes # 0.8 10*3/uL (0.11-0.8); Neutrophils # 6.6 10*3/uL (1.4-7.4); Neutrophils % 60.7 % (38.7-73.9); Platelet Count 434 T/CUMM (130-400); Red Blood Count 3.44 MC/CUMM (3.8-5.5); Red Cell Distribution Width 17.4 % (9.3-17.3); White Blood Count 10.9 T/CUMM (4-12)
[2017-07-18 04:51] LABS: Calcium 9.1 MG/DL (8.5-10.1); Potassium 4.7 MMOL/L (3.5-5.1)
[2017-07-18] MEDS: MAGNESIUM OXIDE 400 MG TABLET PO SCH ×2 (09:39→21:14)
[2017-07-18] MEDS: metFORMIN 500 MG TABLET PO SCH ×2 (09:39→16:37)
[2017-07-18] MEDS: BRIMONIDINE 0.1% OPH SOLN 5 ML BOTTLE BOTH EYES SCH ×2 (09:39→21:16)
[2017-07-18] MEDS: FERROUS SULFATE 325 MG TABLET PO SCH ×2 (09:39→21:14)
[2017-07-18] MEDS: METHENAMINE HIPPURATE 1 GM TABLET PO SCH ×2 (09:39→21:14)
[2017-07-18] MEDS: METOCLOPRAMIDE 5 MG TABLET PO SCH ×4 (09:39→21:15)
[2017-07-18] MEDS: SPIRONOLACTONE 50 MG TABLET PO SCH (09:39)
[2017-07-18] MEDS: GABAPENTIN 600 MG TABLET PO SCH ×3 (09:39→21:14)
[2017-07-18] MEDS: PANTOPRAZOLE 40 MG TABLET PO SCH (09:39)
[2017-07-18] MEDS: SODIUM HYPOCHLORITE 0.25% IRRIG 473 ML BOTTLE TOP SCH (09:40)
[2017-07-18] MEDS: ACETAMINOPHEN 325 MG TABLET PO PRN (09:40)
[2017-07-18] MEDS: FOLIC ACID 1 MG TABLET PO SCH (09:40)
[2017-07-18] MEDS: ISOSORBIDE MONONITRATE 30 MG TABLET PO SCH (09:40)
--- NOTE | 2017-07-18 09:41 | Hospitalist Progress Note ---
Assessment and Plan (1) UTI (urinary tract infection) Status: Acute Assessment and plan: She continues on intravenous micafungin and ceftriaxone for Chel and Proteus urinary tract infection. I have ordered a UA and urine culture for follow up. Current Visit: No Qualifiers: Urinary tract infection type: acute cystitis Hematuria presence: without hematuria Qualified Code(s): N30.00 - Acute cystitis without hematuria (2) History of pulmonary embolism Status: Chronic Assessment and plan: Her warfarin was discontinued temporarily because of over anticoagulation. Her INR today is 2.2. She is on warfarin at a reduced dose of 2.0 mg p.o. daily. I will obtain daily INR's. Current Visit: No (3) Diabetes Status: Acute Assessment and plan: Her glucose this morning is 116. She continues on Levemir insulin 75 units subcutaneous q. at bedtime and sliding scale insulin coverage. Current Visit: No Qualifiers: Diabetes mellitus type: type 2 Diabetes mellitus complication status: with circulatory complication (4) Functional quadriplegia Status: Acute Current Visit: No (5) Neurogenic bladder Status: Acute Current Visit: Yes Hospitalist: Subjective Interval history: She continues on IV micafungin and ceftriaxone for Chel and Proteus UTI. She has no new complaints. Exam - Constitutional Vitals: Period Temp Pulse Resp BP Sys/Valadez Pulse Ox Last 24 Hr 96.6 F-98.6 F 76-93 18-20 94-114/54-68 92-100 General appearance: no acute distress - Head Head exam: Present: normal inspection - Neck Neck exam: Present: normal inspection - Respiratory Respiratory exam: Present: clear to auscultation bilaterally - Cardiovascular Cardiovascular exam: Present: regular rate and rhythm - GI/Abdominal GI/Abdominal exam: Present: normal bowel sounds, soft, other (Nontender.) - Extremities Exam Extremities exam: Present: normal inspection - Skin Skin exam: Present: normal color, warm, intact Results - Labs CBC & BMP: 07/18/17 03:46 07/18/17 03:46 Quality Measures - VTE Contraindication to Pharmacological VTE Prophylaxis: Already on Theraputic Agent , No Prophylaxis Needed
[2017-07-18] MEDS: DOCUSATE SODIUM 100 MG CAPSULE PO SCH ×2 (09:47→21:19)
[2017-07-18] MEDS: NYSTATIN POWDER 15 GM BOTTLE TOP SCH ×2 (09:48→21:22)
[2017-07-18] MEDS: MICAFUNGIN 100 MG in SODIUM CHLORIDE 0.9% 100 ML IV SCH (09:53)
[2017-07-18] MEDS: cefTRIAXone 1,000 MG in SODIUM CHLORIDE 0.9% 100 ML IV SCH (10:57)
[2017-07-18] MEDS: DOXEPIN HCL TOP SCH (12:42)
[2017-07-18 18:25] LABS: Apearance,Urine Slightly Hazy (Clear); Bacteria,Urine Occasional /HPF (Few); Bilirubin,Urine Negative (Negative); Blood, Urine Negative (Negative); Glucose,Urine (UA) Negative (Negative); Ketones,Urine Negative (Negative); Mucus,Urine Occasional /LPF (Occasional); Nitrite,Urine Negative (Negative); Protein,Urine Negative; RBC,Urine 4 /HPF (0-4); Squamous Epithelial Cell,Urine Occasional /HPF (0-10); Urine Color Yellow (Yellow); Urine Specific Gravity 1.012 (1.001-1.035); Urine Urobilinogen < 2.0 EU/DL (0.2-1.0); WBC,Urine 18 /HPF (0-6)
[2017-07-18] MEDS: BIMATOPROST 0.01% OPH SOLN 2.5 ML BOTTLE BOTH EYES SCH (21:16)
[2017-07-18] MEDS: INSULIN GLARGINE 100 UNIT/ML SUBCUT SCH (21:22)
[2017-07-19] MEDS: ACETAMINOPHEN 325 MG TABLET PO PRN ×2 (02:29→14:55)
[2017-07-19 06:03] LABS: INR 1.4; PT Patient Result 14.7 SECS
[2017-07-19] MEDS: DOCUSATE SODIUM 100 MG CAPSULE PO SCH ×2 (08:48→20:54)
[2017-07-19] MEDS: metFORMIN 500 MG TABLET PO SCH ×2 (08:49→17:27)
[2017-07-19] MEDS: GABAPENTIN 600 MG TABLET PO SCH ×3 (08:50→20:48)
[2017-07-19] MEDS: METOCLOPRAMIDE 5 MG TABLET PO SCH ×4 (08:51→20:48)
[2017-07-19] MEDS: SPIRONOLACTONE 50 MG TABLET PO SCH (08:51)
[2017-07-19] MEDS: MAGNESIUM OXIDE 400 MG TABLET PO SCH ×2 (08:51→20:48)
[2017-07-19] MEDS: FOLIC ACID 1 MG TABLET PO SCH (08:51)
[2017-07-19] MEDS: ISOSORBIDE MONONITRATE 30 MG TABLET PO SCH (08:51)
[2017-07-19] MEDS: PANTOPRAZOLE 40 MG TABLET PO SCH (08:51)
[2017-07-19] MEDS: METHENAMINE HIPPURATE 1 GM TABLET PO SCH ×2 (08:51→20:48)
[2017-07-19] MEDS: FERROUS SULFATE 325 MG TABLET PO SCH ×2 (08:51→20:48)
[2017-07-19] MEDS: cefTRIAXone 1,000 MG in SODIUM CHLORIDE 0.9% 100 ML IV SCH (08:55)
[2017-07-19] MEDS: NYSTATIN POWDER 15 GM BOTTLE TOP SCH ×2 (09:00→20:59)
[2017-07-19] MEDS: SODIUM HYPOCHLORITE 0.25% IRRIG 473 ML BOTTLE TOP SCH (09:00)
[2017-07-19] MEDS: BRIMONIDINE 0.1% OPH SOLN 5 ML BOTTLE BOTH EYES SCH ×2 (09:04→20:47)
[2017-07-19] MEDS: DOXEPIN HCL TOP SCH (10:03)
[2017-07-19 10:26] LABS: INR 1.3; PT Patient Result 14.2 SECS
--- NOTE | 2017-07-19 10:43 | Hospitalist Progress Note ---
Assessment and Plan (1) UTI (urinary tract infection) Status: Acute Assessment and plan: She continues on intravenous micafungin and ceftriaxone for Chel and Proteus urinary tract infection. Repeat urine culture obtained yesterday shows no growth at this time. Repeat urinalysis continued to demonstrate white blood cells. Current Visit: No Qualifiers: Urinary tract infection type: acute cystitis Hematuria presence: without hematuria Qualified Code(s): N30.00 - Acute cystitis without hematuria (2) History of pulmonary embolism Status: Chronic Assessment and plan: Her warfarin was discontinued temporarily because of over anticoagulation. Her INR today is 1.4. I will increase her warfarin to 2.5 mg p.o. daily. I will continue to monitor with daily INR's. Current Visit: No (3) Diabetes Status: Acute Assessment and plan: Her glucose this morning is 126. She continues on Levemir insulin 75 units subcutaneous q. at bedtime and sliding scale insulin coverage. Current Visit: No Qualifiers: Diabetes mellitus type: type 2 Diabetes mellitus complication status: with circulatory complication (4) Functional quadriplegia Status: Acute Current Visit: No (5) Neurogenic bladder Status: Acute Current Visit: Yes Hospitalist: Subjective Interval history: Patient is comfortable with no new complaints. She continues on intravenous micafungin and ceftriaxone for Chel and Proteus urinary tract infection. Her warfarin was temporarily decreased due to over anticoagulation. Her INR today is 1.4. I will increase her warfarin to 2.5 mg p.o. daily. Exam - Constitutional Vitals: Period Temp Pulse Resp BP Sys/Valadez Pulse Ox Last 24 Hr 96.2 F-98.2 F 86-94 18-20 92-113/51-64 92-99 General appearance: no acute distress - Head Head exam: Present: normal inspection - Neck Neck exam: Present: normal inspection - Respiratory Respiratory exam: Present: clear to auscultation bilaterally - Cardiovascular Cardiovascular exam: Present: regular rate and rhythm - GI/Abdominal GI/Abdominal exam: Present: normal bowel sounds, soft, other (Nontender with no palpable masses or hepatosplenomegaly.) - Extremities Exam Extremities exam: Present: normal inspection - Skin Skin exam: Present: normal color, warm, intact Results - Labs CBC & BMP: 07/18/17 03:46 07/18/17 03:46 Quality Measures - VTE Contraindication to Pharmacological VTE Prophylaxis: Already on Theraputic Agent , No Prophylaxis Needed
[2017-07-19] MEDS ORDERED: WARFARIN 2.5 MG TABLET PO SCH (18:00)
[2017-07-19] MEDS: BIMATOPROST 0.01% OPH SOLN 2.5 ML BOTTLE BOTH EYES SCH (20:47)
[2017-07-19] MEDS: INSULIN GLARGINE 100 UNIT/ML SUBCUT SCH (21:04)
[2017-07-20] MEDS: ACETAMINOPHEN 325 MG TABLET PO PRN ×3 (02:27→15:38)
[2017-07-20 06:29] LABS: Basophils # 0.1 10*3/uL (0.0-0.2); Basophils % 0.5 % (0.0-0.8); Eosinophils # 0.7 10*3/uL (0.0-0.87); Eosinophils % 6.5 % (0.00-10.9); Hematocrit 29.5 VOL% (35.7-47.0); Hemoglobin 8.8 GM/DL (12.0-16.0); Immature Granulocytes % 0.4 %; Immature Granulocytes Absolute 0.04 #; Lymphocytes # 2.4 10*3/uL (1.4-4.0); Mean Corpuscular HGB Conc 29.8 GM/DL (32-36); Mean Corpuscular Hemoglobin 26 PG (27-34); Mean Corpuscular Volume 87.3 FL (87-102); Mean Platelet Volume 9.9 FL (9.6-12.0); Monocytes # 0.7 10*3/uL (0.11-0.8); Monocytes % 6.2 % (1.7-12.7); Neutrophils # 7.2 10*3/uL (1.4-7.4); Neutrophils % 64.4 % (38.7-73.9); Platelet Count 480 T/CUMM (130-400); Red Blood Count 3.38 MC/CUMM (3.8-5.5); White Blood Count 11.1 T/CUMM (4-12)
[2017-07-20 06:54] LABS: Calcium 8.4 MG/DL (8.5-10.1); Potassium 4.6 MMOL/L (3.5-5.1)
--- NOTE | 2017-07-20 08:40 | Hospitalist Progress Note ---
Assessment and Plan (1) UTI (urinary tract infection) Status: Acute Assessment and plan: She continues on intravenous micafungin and ceftriaxone for Chel and Proteus urinary tract infection. Repeat urine culture showed no growth. I will continue her present antibiotics. She will be discharged on no antibiotics when her INR is therapeutic. Current Visit: No Qualifiers: Urinary tract infection type: acute cystitis Hematuria presence: without hematuria Qualified Code(s): N30.00 - Acute cystitis without hematuria (2) History of pulmonary embolism Status: Chronic Assessment and plan: Her warfarin is being adjusted to obtain an INR of 2.0-3.0. She will be discharged when it is therapeutic. Current Visit: No (3) Diabetes Status: Acute Assessment and plan: Her glucose this morning is 126. She continues on Levemir insulin 75 units subcutaneous at bedtime and sliding scale insulin coverage. Current Visit: No Qualifiers: Diabetes mellitus type: type 2 Diabetes mellitus complication status: with circulatory complication (4) Functional quadriplegia Status: Acute Current Visit: No (5) Neurogenic bladder Status: Acute Current Visit: Yes Hospitalist: Subjective Interval history: Patient is doing well. She continues on intravenous micafungin and ceftriaxone for Chel and Proteus urinary tract infection. Her warfarin dose is being adjusted to a level between 2.0-3.0. Exam - Constitutional Vitals: Period Temp Pulse Resp BP Sys/Valadez Pulse Ox Last 24 Hr 96.2 F-98.4 F 75-92 18-22 92-121/47-74 95-99 General appearance: no acute distress - Head Head exam: Present: normal inspection - Neck Neck exam: Present: normal inspection - Respiratory Respiratory exam: Present: clear to auscultation bilaterally - Cardiovascular Cardiovascular exam: Present: regular rate and rhythm - GI/Abdominal GI/Abdominal exam: Present: normal bowel sounds, soft, other (Nontender with no palpable masses or hepatosplenomegaly.) - Extremities Exam Extremities exam: Present: normal inspection - Neurological Exam Neurological exam: Present: alert, oriented X3 - Psychiatric Psychiatric exam: Present: normal affect - Skin Skin exam: Present: normal color, warm, intact Results - Labs CBC & BMP: 07/20/17 05:10 07/20/17 05:10 Quality Measures - VTE Contraindication to Pharmacological VTE Prophylaxis: Already on Theraputic Agent , No Prophylaxis Needed
[2017-07-20 09:12] LABS: INR 1.1
[2017-07-20] MEDS: cefTRIAXone 1,000 MG in SODIUM CHLORIDE 0.9% 100 ML IV SCH (10:01)
[2017-07-20] MEDS: GABAPENTIN 600 MG TABLET PO SCH ×3 (10:04→21:36)
[2017-07-20] MEDS: METOCLOPRAMIDE 5 MG TABLET PO SCH ×4 (10:04→21:36)
[2017-07-20] MEDS: MAGNESIUM OXIDE 400 MG TABLET PO SCH ×2 (10:05→21:36)
[2017-07-20] MEDS: FOLIC ACID 1 MG TABLET PO SCH (10:05)
[2017-07-20] MEDS: SPIRONOLACTONE 50 MG TABLET PO SCH (10:06)
[2017-07-20] MEDS: ISOSORBIDE MONONITRATE 30 MG TABLET PO SCH (10:06)
[2017-07-20] MEDS: FERROUS SULFATE 325 MG TABLET PO SCH ×2 (10:06→21:36)
[2017-07-20] MEDS: METHENAMINE HIPPURATE 1 GM TABLET PO SCH ×2 (10:06→21:36)
[2017-07-20] MEDS: DOCUSATE SODIUM 100 MG CAPSULE PO SCH ×2 (10:07→21:37)
[2017-07-20] MEDS: PANTOPRAZOLE 40 MG TABLET PO SCH (10:07)
[2017-07-20] MEDS: metFORMIN 500 MG TABLET PO SCH ×2 (10:07→17:26)
[2017-07-20] MEDS: BRIMONIDINE 0.1% OPH SOLN 5 ML BOTTLE BOTH EYES SCH ×2 (10:56→21:37)
[2017-07-20] MEDS: DOXEPIN HCL TOP SCH (14:39)
[2017-07-20] MEDS: SODIUM HYPOCHLORITE 0.25% IRRIG 473 ML BOTTLE TOP SCH (14:39)
[2017-07-20] MEDS: NYSTATIN POWDER 15 GM BOTTLE TOP SCH ×2 (14:40→21:37)
[2017-07-20] MEDS: BACLOFEN 20 MG TABLET PO PRN ×2 (15:38→22:57)
[2017-07-20] MEDS: WARFARIN 10 MG TABLET PO SCH (17:25)
[2017-07-20] MEDS ORDERED: WARFARIN 3 MG TABLET PO SCH (18:00)
[2017-07-20] MEDS: INSULIN GLARGINE 100 UNIT/ML SUBCUT SCH (21:35)
[2017-07-20] MEDS: BIMATOPROST 0.01% OPH SOLN 2.5 ML BOTTLE BOTH EYES SCH (21:37)
[2017-07-21] MEDS: ACETAMINOPHEN 325 MG TABLET PO PRN ×2 (04:45→16:49)
[2017-07-21 05:24] LABS: Basophils # 0.1 10*3/uL (0.0-0.2); Basophils % 0.5 % (0.0-0.8); Eosinophils # 0.8 10*3/uL (0.0-0.87); Eosinophils % 6.8 % (0.00-10.9); Hematocrit 28.8 VOL% (35.7-47.0); Hemoglobin 8.8 GM/DL (12.0-16.0); Immature Granulocytes % 0.4 %; Immature Granulocytes Absolute 0.05 #; Lymphocytes # 2.3 10*3/uL (1.4-4.0); Lymphocytes % 19.8 % (21.3-54.2); Mean Corpuscular HGB Conc 30.6 GM/DL (32-36); Mean Corpuscular Hemoglobin 27 PG (27-34); Mean Corpuscular Volume 86.7 FL (87-102); Mean Platelet Volume 9.6 FL (9.6-12.0); Monocytes # 0.6 10*3/uL (0.11-0.8); Monocytes % 5.6 % (1.7-12.7); Neutrophils # 7.6 10*3/uL (1.4-7.4); Neutrophils % 66.9 % (38.7-73.9); Platelet Count 461 T/CUMM (130-400); Red Blood Count 3.32 MC/CUMM (3.8-5.5); Red Cell Distribution Width 18.1 % (9.3-17.3); White Blood Count 11.4 T/CUMM (4-12)
[2017-07-21 06:02] LABS: Calcium 8.4 MG/DL (8.5-10.1); Osmolality,Calculated 285.8 MOS/KG (273-304); Potassium 4.1 MMOL/L (3.5-5.1)
--- NOTE | 2017-07-21 08:51 | Hospitalist Progress Note ---
Assessment and Plan (1) UTI (urinary tract infection) Status: Acute Assessment and plan: She continues on intravenous micafungin and ceftriaxone for Chel and Proteus urinary tract infection. Repeat urine culture showed no growth. I will continue her present antibiotics. She will be discharged on no antibiotics when her INR is therapeutic. Current Visit: No Qualifiers: Urinary tract infection type: acute cystitis Hematuria presence: without hematuria Qualified Code(s): N30.00 - Acute cystitis without hematuria (2) History of pulmonary embolism Status: Chronic Assessment and plan: Her warfarin is being adjusted to obtain an INR of 2.0-3.0. She will be discharged when it is therapeutic. Current Visit: No (3) Diabetes Status: Acute Assessment and plan: Her glucose this morning is 165. She continues on Levemir insulin 75 units subcutaneous at bedtime and sliding scale insulin coverage. Current Visit: No Qualifiers: Diabetes mellitus type: type 2 Diabetes mellitus complication status: with circulatory complication (4) Functional quadriplegia Status: Acute Current Visit: No (5) Neurogenic bladder Status: Acute Current Visit: Yes Hospitalist: Subjective Interval history: Patient is doing well with no complaints. She continues on intravenous micafungin and ceftriaxone for Chel and Proteus urinary tract infection. Warfarin dose is being adjusted to a level between 2.0-3.0. Her INR yesterday was 1.1. I increased her warfarin to 10 mg p.o. daily. Exam - Constitutional Vitals: Period Temp Pulse Resp BP Sys/Valadez Pulse Ox Last 24 Hr 96.7 F-98.4 F 79-88 18-22 102-122/55-74 95-98 General appearance: no acute distress - Neck Neck exam: Present: normal inspection - Respiratory Respiratory exam: Present: clear to auscultation bilaterally - Cardiovascular Cardiovascular exam: Present: regular rate and rhythm - GI/Abdominal GI/Abdominal exam: Present: normal bowel sounds, soft, other (Nontender with no palpable masses or hepatosplenomegaly.) - Extremities Exam Extremities exam: Present: normal inspection - Neurological Exam Neurological exam: Present: alert, oriented X3 - Skin Skin exam: Present: normal color, warm, intact Results - Labs CBC & BMP: 07/21/17 04:53 07/21/17 04:53 Quality Measures - VTE Contraindication to Pharmacological VTE Prophylaxis: Already on Theraputic Agent , No Prophylaxis Needed
[2017-07-21] MEDS: PANTOPRAZOLE 40 MG TABLET PO SCH (09:42)
[2017-07-21] MEDS: DOCUSATE SODIUM 100 MG CAPSULE PO SCH ×2 (09:42→22:49)
[2017-07-21] MEDS: FOLIC ACID 1 MG TABLET PO SCH (09:42)
[2017-07-21] MEDS: metFORMIN 500 MG TABLET PO SCH ×2 (09:42→16:36)
[2017-07-21] MEDS: MAGNESIUM OXIDE 400 MG TABLET PO SCH ×2 (09:43→22:48)
[2017-07-21] MEDS: ISOSORBIDE MONONITRATE 30 MG TABLET PO SCH (09:43)
[2017-07-21] MEDS: GABAPENTIN 600 MG TABLET PO SCH ×3 (09:43→22:48)
[2017-07-21] MEDS: BRIMONIDINE 0.1% OPH SOLN 5 ML BOTTLE BOTH EYES SCH ×2 (09:43→22:50)
[2017-07-21] MEDS: METOCLOPRAMIDE 5 MG TABLET PO SCH ×4 (09:43→22:48)
[2017-07-21] MEDS: FERROUS SULFATE 325 MG TABLET PO SCH ×2 (09:43→22:48)
[2017-07-21] MEDS: SPIRONOLACTONE 50 MG TABLET PO SCH (09:43)
[2017-07-21] MEDS: cefTRIAXone 1,000 MG in SODIUM CHLORIDE 0.9% 100 ML IV SCH (09:44)
[2017-07-21 09:46] LABS: INR 1.3; PT Patient Result 13.4 SECS
[2017-07-21] MEDS: METHENAMINE HIPPURATE 1 GM TABLET PO SCH ×2 (10:01→22:52)
[2017-07-21] MEDS: NYSTATIN POWDER 15 GM BOTTLE TOP SCH ×2 (12:58→22:52)
[2017-07-21] MEDS: DOXEPIN HCL TOP SCH (12:59)
[2017-07-21] MEDS: SODIUM HYPOCHLORITE 0.25% IRRIG 473 ML BOTTLE TOP SCH (12:59)
[2017-07-21] MEDS: WARFARIN 10 MG TABLET PO SCH (16:59)
[2017-07-21] MEDS: BIMATOPROST 0.01% OPH SOLN 2.5 ML BOTTLE BOTH EYES SCH (22:50)
[2017-07-21] MEDS: INSULIN GLARGINE 100 UNIT/ML SUBCUT SCH (22:52)
--- NOTE | 2017-07-22 08:55 | Hospitalist Progress Note ---
Assessment and Plan (1) UTI (urinary tract infection) Status: Acute Assessment and plan: She continues on intravenous micafungin and ceftriaxone for Chel and Proteus urinary tract infection. Repeat urine culture showed no growth. I will continue her present antibiotics. She will be discharged on no antibiotics when her INR is therapeutic. Current Visit: No Qualifiers: Urinary tract infection type: acute cystitis Hematuria presence: without hematuria Qualified Code(s): N30.00 - Acute cystitis without hematuria (2) History of pulmonary embolism Status: Chronic Assessment and plan: Her warfarin is being adjusted to obtain an INR of 2.0-3.0. She will be discharged when it is therapeutic. Current Visit: No (3) Diabetes Status: Acute Assessment and plan: Her glucose this morning is 91. She continues on Levemir insulin 75 units subcutaneous at bedtime and sliding scale insulin coverage. Current Visit: No Qualifiers: Diabetes mellitus type: type 2 Diabetes mellitus complication status: with circulatory complication (4) Functional quadriplegia Status: Acute Current Visit: No (5) Neurogenic bladder Status: Acute Current Visit: Yes Hospitalist: Subjective Interval history: Patient is doing well with no complaints. She continues on intravenous micafungin and ceftriaxone for Chel and Proteus urinary tract infection. Warfarin dose is being adjusted to a level between 2.0-3.0. Her INR yesterday was 1.3. I increased her warfarin to 10 mg p.o. daily. Exam - Constitutional Vitals: Period Temp Pulse Resp BP Sys/Valadez Pulse Ox Last 24 Hr 96.5 F-98.6 F 84-96 18-22 97-118/54-63 93-100 General appearance: no acute distress - Head Head exam: Present: normal inspection - Neck Neck exam: Present: normal inspection - Respiratory Respiratory exam: Present: clear to auscultation bilaterally - Cardiovascular Cardiovascular exam: Present: regular rate and rhythm - GI/Abdominal GI/Abdominal exam: Present: normal bowel sounds, soft, other (Nontender with no palpable masses or hepatosplenomegaly.) - Extremities Exam Extremities exam: Present: normal inspection - Skin Skin exam: Present: normal color, warm, intact Results - Labs CBC & BMP: 07/21/17 04:53 07/21/17 04:53 Quality Measures - VTE Contraindication to Pharmacological VTE Prophylaxis: Already on Theraputic Agent , No Prophylaxis Needed
[2017-07-22] MEDS: DOCUSATE SODIUM 100 MG CAPSULE PO SCH ×2 (09:36→22:09)
[2017-07-22] MEDS: PANTOPRAZOLE 40 MG TABLET PO SCH (09:36)
[2017-07-22] MEDS: METHENAMINE HIPPURATE 1 GM TABLET PO SCH ×2 (09:37→22:15)
[2017-07-22] MEDS: GABAPENTIN 600 MG TABLET PO SCH ×3 (09:37→22:07)
[2017-07-22] MEDS: SPIRONOLACTONE 50 MG TABLET PO SCH (09:37)
[2017-07-22] MEDS: FERROUS SULFATE 325 MG TABLET PO SCH ×2 (09:37→22:08)
[2017-07-22] MEDS: metFORMIN 500 MG TABLET PO SCH ×2 (09:37→17:48)
[2017-07-22] MEDS: FOLIC ACID 1 MG TABLET PO SCH (09:37)
[2017-07-22] MEDS: MAGNESIUM OXIDE 400 MG TABLET PO SCH ×2 (09:37→22:08)
[2017-07-22] MEDS: METOCLOPRAMIDE 5 MG TABLET PO SCH ×4 (09:37→22:13)
[2017-07-22] MEDS: ISOSORBIDE MONONITRATE 30 MG TABLET PO SCH (09:37)
[2017-07-22] MEDS: SODIUM HYPOCHLORITE 0.25% IRRIG 473 ML BOTTLE TOP SCH (09:38)
[2017-07-22] MEDS: NYSTATIN POWDER 15 GM BOTTLE TOP SCH ×2 (09:38→22:08)
[2017-07-22] MEDS: BRIMONIDINE 0.1% OPH SOLN 5 ML BOTTLE BOTH EYES SCH ×2 (09:41→22:07)
[2017-07-22] MEDS: ACETAMINOPHEN 325 MG TABLET PO PRN ×2 (09:41→15:50)
[2017-07-22] MEDS: cefTRIAXone 1,000 MG in SODIUM CHLORIDE 0.9% 100 ML IV SCH (09:47)
[2017-07-22] MEDS: DOXEPIN HCL TOP SCH (09:48)
[2017-07-22] MEDS: WARFARIN 10 MG TABLET PO SCH (17:48)
[2017-07-22] MEDS: BIMATOPROST 0.01% OPH SOLN 2.5 ML BOTTLE BOTH EYES SCH (22:07)
[2017-07-22] MEDS: BACLOFEN 20 MG TABLET PO PRN (22:08)
[2017-07-22] MEDS: INSULIN GLARGINE 100 UNIT/ML SUBCUT SCH (22:14)
[2017-07-23] MEDS: ACETAMINOPHEN 325 MG TABLET PO PRN (04:32)
[2017-07-23 06:07] LABS: INR 2.2
[2017-07-23 06:13] LABS: PT Patient Result 24.1 SECS
--- NOTE | 2017-07-23 07:52 | Discharge Summary ---
Hospital Course - Hospital Course Hospital Course: Ms. Diana who is a 72 year old female that presented tonight with altered mental status. Per patient's daughter patient began to act funny around 1800 tonight. Daughter stated that she would not eat. Daughter states that patient gets this way when she has a urinary tract infection. Daughter denies any recent illness or change in health status. In the ER, patient received a CT head which was negative. Blood cultures and urine cultures were drawn. Levaquin and vancomycin and 1 L of normal saline were given. Blood work revealed WBC count of 13.3 and glucose of 126. Bolanos was placed with dark urine and copious amounts of sediment. Daughter states she has had multiple urinary tract infections in the past. She was admitted in April for same complaint where she received Merrem after blood culture results found E. coli and Enterococcus faecalis as organisms. She was sent home on Macrodantin which show susceptibility to both organisms. Patient has a history of a sacral wound ulcer and is followed by Dr. Talon Bello at the wound care center. She also has healing heel ulcers and is followed by home health. She also has a history of hypertension, diabetes, dyslipidemia , CVA with left-sided paralysis, cataracts, chronic pain, and pulmonary embolism for which she is on Coumadin. INR was therapeutic. She lives at home with 2 adult children taking care of her. She is normally alert and oriented. Able to answer questions but is bedbound due to old CVA. Tonight she is sluggish to follow commands and can only tell me her name. She will be admitted to the hospital for antibiotic therapy and hydration therapy. We will start patient on Rocephin and meropenem IV due to recent blood culture results and patient's allergies. Subsequent urine cultures demonstrated Chel and Proteus. She was treated with intravenous micafungin and ceftriaxone. She required adjustment of her warfarin because of over anticoagulation. At the time of her discharge her INR was 2.2. The time of her discharge she was comfortable with no complaints. Diagnosis - Discharge Diagnosis (1) UTI (urinary tract infection) Status: Acute (2) History of pulmonary embolism Status: Chronic (3) Diabetes Status: Chronic (4) Functional quadriplegia Status: Chronic (5) Neurogenic bladder Status: Chronic (6) Chronic anticoagulation Status: Chronic (7) Infectious encephalopathy Status: Acute Discharge Plan - Discharge Data Disposition: Disch To Home/Self Care Condition at Discharge: Stable Discharge Diet: advance to your usual diet Activity: resume usual activities as tolerated - Discharge Medications New Baclofen Tab [Lioresal] 20 mg PO Q8HR PRN #90 tablet PRN Reason: muscle spasm Brimonidine 0.1% Oph Soln [Alphagan P 0.1% Oph Soln] 1 drop BOTH EYES BID #1 bottle Ferrous Sulfate Tab [Feosol Original Tab] 325 mg PO BID #60 tablet Folic Acid Tab 1 mg PO DAILY #30 tablet Isosorbide Mononitrate [Imdur] 30 mg PO DAILY #30 tablet Phenyleph/Mineral Oil/Petrolat [Preparation H Ointment] 1 applic TOP Q4H PRN applic PRN Reason: Hemorrhoids Skin Healing Oint (Aquaphor) [Aquaphor] 1 applic TOP PRN PRN applic PRN Reason: Dry Skin Warfarin [Coumadin] 3 mg PO DAILY@1800 #30 tablet Bimatoprost 0.01% Oph Soln [Lumigan] 1 drop BOTH EYES BEDTIME #1 bottle Nystatin Powder [Mycostatin Powder] 1 applic TOP BID applic Continue Methenamine Hippurate 1 gm PO BID Spironolactone [Aldactone] 50 mg PO QAM Gabapentin 600 mg PO TID Magnesium Oxide 400 mg PO BID Furosemide 40 mg PO BID Metoclopramide Tab [Reglan Tab] 5 mg PO ACHS metFORMIN [Glucophage] 500 mg PO BID W/MEALS metOLazone [Metolazone] 2.5 mg PO DAILY Insulin Detemir [Levemir] 75 unit SUBCUT BEDTIME acetaZOLAMIDE [Acetazolamide ER Cap] 500 mg PO BID Discontinued Warfarin [Coumadin] 7.5 mg PO TUTA - Follow Up or Referral - Forms/Instructions Exam - Constitutional Vitals: Period Temp Pulse Resp BP Sys/Valadez Pulse Ox Last 24 Hr 97.5 F-99 F 67-88 18-22 94-138/51-77 93-100 Discharge Results Procedures and tests throughout hospitalization: Pending Orders 07/10/17 20:00 Occult Blood, Stool Routine Labs on day of discharge: Labs from last 24 hours 07/23/17 07/22/17 07/22/17 05:13 22:02 15:35 INR 2.2 PT Patient/Control Mix 24.1 D POC Glucose 100 100 07/22/17 07/22/17 11:12 07:57 INR PT Patient/Control Mix POC Glucose 157 H 91 DS: Provider Date of admission: 07/08/17 01:07 Primary care physician: Denilson Herrmann MD Attending physician on admission: Michell Fair MD Consults: 07/08/17 02:21 Consult to Wound Care [facility] [CONS] Routine Reason for Wound Care: Wound Care Management Consult Comment: sacral decubitus followed at wound center; healed heel decubitus 07/08/17 06:54 Consult to Pharmacy [CONS] Routine Reason for Pharmacy Consult: Adjust Meds Renal Funct 07/10/17 12:02 Consult to Pharmacy [CONS] Routine Reason for Pharmacy Consult: Other Comment: pt on warfarin 07/18/17 14:24 Consult to Physical Therapy [CONS] Routine Reason for Physical Therapy: Evaluate and Treat Discharging clinician: Gabriel Grant
[2017-07-23 08:22] VITALS: BP 106/58
[2017-07-23] MEDS: cefTRIAXone 1,000 MG in SODIUM CHLORIDE 0.9% 100 ML IV SCH (09:03)
[2017-07-23] MEDS: FERROUS SULFATE 325 MG TABLET PO SCH (09:08)
[2017-07-23] MEDS: DOXEPIN HCL TOP SCH (09:09)
[2017-07-23] MEDS: GABAPENTIN 600 MG TABLET PO SCH (09:10)
[2017-07-23] MEDS: ISOSORBIDE MONONITRATE 30 MG TABLET PO SCH (09:10)
[2017-07-23] MEDS: FOLIC ACID 1 MG TABLET PO SCH (09:11)
[2017-07-23] MEDS: SPIRONOLACTONE 50 MG TABLET PO SCH (09:11)
[2017-07-23] MEDS: metFORMIN 500 MG TABLET PO SCH (09:11)
[2017-07-23] MEDS: METOCLOPRAMIDE 5 MG TABLET PO SCH (09:11)
[2017-07-23] MEDS: PANTOPRAZOLE 40 MG TABLET PO SCH (09:11)
[2017-07-23] MEDS: MAGNESIUM OXIDE 400 MG TABLET PO SCH (09:17)
[2017-07-23] MEDS: BRIMONIDINE 0.1% OPH SOLN 5 ML BOTTLE BOTH EYES SCH (09:23)
[2017-07-23] MEDS ORDERED: WARFARIN 3 MG TABLET PO SCH (18:00)
== END 2017-07-23 09:50 | disposition home health service (06) | DRG 698 ==
LOC: EDBD → EDUNIT# → N.ED 22:37 → N.EDINP 07-08 01:07 → SUATTDRO 07-08 01:07 → N.2E 07-08 01:34
PROVIDERS: ADMIT Internal Medicine

== ENCOUNTER 2018-04-06 21:06 | Inpatient (IN) ==
[2018-04-06] MEDS ORDERED: SODIUM CHLORIDE 0.9% 1,000 ML IV STA (21:50)
[2018-04-06 23:13] LABS: Basophils # 0.1 10*3/uL (0.0-0.2); Basophils % 0.2 % (0.0-0.8); Hematocrit 37.3 VOL% (35.7-47.0); Hemoglobin 11.5 GM/DL (12.0-16.0); Immature Granulocytes % 0.9 %; Immature Granulocytes Absolute 0.24 #; Lymphocytes % 3.9 % (21.3-54.2); Mean Corpuscular HGB Conc 30.8 GM/DL (32-36); Mean Corpuscular Hemoglobin 26 PG (27-34); Mean Corpuscular Volume 82.9 FL (87-102); Mean Platelet Volume 9.8 FL (9.6-12.0); Monocytes # 1.2 10*3/uL (0.11-0.8); Monocytes % 4.6 % (1.7-12.7); Neutrophils # 24.1 10*3/uL (1.4-7.4); Neutrophils % 90.4 % (38.7-73.9); Platelet Count 510 T/CUMM (130-400); White Blood Count 26.7 T/CUMM (4-12)
[2018-04-06 23:30] LABS: Apearance,Urine CLOUDY (Clear); Bacteria,Urine Many /HPF (Few); Bilirubin,Urine Negative (Negative); Blood, Urine Negative (Negative); Glucose,Urine (UA) Negative (Negative); Ketones,Urine Negative (Negative); Mucus,Urine Occasional /LPF (Occasional); Nitrite,Urine Negative (Negative); Protein,Urine 100 MG/DL; RBC,Urine 5 /HPF (0-4); Squamous Epithelial Cell,Urine Occasional /HPF (0-10); Urine Color Amber (Yellow); Urine Specific Gravity 1.013 (1.001-1.035); Urine Urobilinogen < 2.0 EU/DL (0.2-1.0); WBC,Urine 9 /HPF (0-6)
[2018-04-06] MEDS ORDERED: PIPERACILLIN/TAZOBACTAM 3,375 MG in SODIUM CHLORIDE 0.9% 100 ML IV STA (23:33)
[2018-04-06] MEDS ORDERED: VANCOMYCIN INJ 1,000 MG in SODIUM CHLORIDE 0.9% 250 ML IV STA (23:33)
[2018-04-06 23:46] LABS: Alanine Aminotransferase 22 U/L (13-56); Albumin 2.5 G/DL (3.4-5.0); Alkaline Phosphatase 100 U/L (45-117); Aspartate Amino Transferase 11 U/L (0-37); Blood Urea Nitrogen 25 MG/DL (7-18); Calcium 8.5 MG/DL (8.5-10.1); Glucose 174 MG/DL (74-106); Osmolality,Calculated 288.3 MOS/KG (273-304); Potassium 4.2 MMOL/L (3.5-5.1); Sodium 141 MMOL/L (136-145); Thyroid Stimulating Hormone 0.521 uIU/ml (0.358-3.74); Total Protein 7.1 G/DL (6.4-8.3)
[2018-04-07 00:22] LABS: Lactic Acid 3.3 MMOL/L (0.4-2.0)
[2018-04-07] MEDS ORDERED: SODIUM CHLORIDE 0.9% 2,000 ML IV STA (00:28)
[2018-04-07 00:34] LABS: Band Neutrophils 4 % (0-10); Lymphocytes 5 % (20-55); Platelet Estimate Increased; Segmented Neutrophils 83 % (50-85); Total Cells Counted 100
[2018-04-07] MEDS ORDERED: PHENYLEPH/MINERAL OIL/PETROLAT 57 GM TUBE TOP PRN (02:24)
[2018-04-07] MEDS ORDERED: SKIN HEALING OINT (AQUAPHOR) 50 GM TUBE TOP PRN (02:24)
[2018-04-07 06:02] LABS: Calcium 8.5 MG/DL (8.5-10.1); Osmolality,Calculated 288.1 MOS/KG (273-304); Potassium 4.4 MMOL/L (3.5-5.1)
[2018-04-07 06:15] LABS: Lactic Acid 2.6 MMOL/L (0.4-2.0)
[2018-04-07 07:05] LABS: Basophils % 0.2 % (0.0-0.8); Eosinophils % 0.1 % (0.00-10.9); Hematocrit 38.1 VOL% (35.7-47.0); Hemoglobin 11.8 GM/DL (12.0-16.0); Immature Granulocytes % 0.4 %; Immature Granulocytes Absolute 0.07 #; Lymphocytes # 0.5 10*3/uL (1.4-4.0); Lymphocytes % 2.9 % (21.3-54.2); Mean Corpuscular Hemoglobin 25 PG (27-34); Mean Corpuscular Volume 81.8 FL (87-102); Mean Platelet Volume 10.1 FL (9.6-12.0); Monocytes # 0.5 10*3/uL (0.11-0.8); Neutrophils # 16.3 10*3/uL (1.4-7.4); Neutrophils % 93.4 % (38.7-73.9); Platelet Count 403 T/CUMM (130-400); Red Blood Count 4.66 MC/CUMM (3.8-5.5); Red Cell Distribution Width 17.2 % (9.3-17.3); White Blood Count 17.4 T/CUMM (4-12)
[2018-04-07 07:11] LABS: INR 1.7; PT Patient Result 17.2 SECS
[2018-04-07 07:26] LABS: Band Neutrophils 13 % (0-10); Hypochromasia 1+; Lymphocytes 3 % (20-55); Microcytosis 1+; Segmented Neutrophils 82 % (50-85); Total Cells Counted 100
[2018-04-07 07:27] LABS: Ovalocytes Slight; Platelet Estimate Increased
[2018-04-07] MEDS ORDERED: BACLOFEN 20 MG TABLET PO PRN (08:32)
[2018-04-07] MEDS ORDERED: BRIMONIDINE 0.1% OPH SOLN 5 ML BOTTLE BOTH EYES SCH (09:00)
[2018-04-07] MEDS: SPIRONOLACTONE 25 MG TABLET PO SCH (12:23)
[2018-04-07] MEDS: GABAPENTIN 600 MG TABLET PO SCH ×3 (12:23→20:54)
[2018-04-07] MEDS: MAGNESIUM OXIDE 400 MG TABLET PO SCH ×3 (12:24→20:54)
[2018-04-07] MEDS: metOLazone 2.5 MG TABLET PO SCH (12:24)
[2018-04-07] MEDS: BRIMONIDINE/TIMOLOL OPH SOLN 5 ML BOTTLE BOTH EYES SCH ×2 (12:24→20:55)
[2018-04-07] MEDS: PIPERACILLIN/TAZOBACTAM 3,375 MG in SODIUM CHLORIDE 0.9% 100 ML IV SCH ×2 (13:01→20:52)
[2018-04-07] MEDS ORDERED: metFORMIN 500 MG TABLET PO SCH (17:00)
[2018-04-07] MEDS: WARFARIN 7.5 MG TABLET PO SCH (17:11)
[2018-04-07] MEDS: INSULIN GLARGINE 100 UNIT/ML SUBCUT SCH (20:55)
[2018-04-07] MEDS: BIMATOPROST 0.01% OPH SOLN 2.5 ML BOTTLE BOTH EYES SCH (20:55)
[2018-04-08] MEDS: VANCOMYCIN INJ 1,250 MG in SODIUM CHLORIDE 0.9% 250 ML IV SCH (00:47)
[2018-04-08] MEDS: PIPERACILLIN/TAZOBACTAM 3,375 MG in SODIUM CHLORIDE 0.9% 100 ML IV SCH ×3 (04:12→21:20)
[2018-04-08 06:13] LABS: Basophils # 0.1 10*3/uL (0.0-0.2); Basophils % 0.3 % (0.0-0.8); Eosinophils # 0.5 10*3/uL (0.0-0.87); Eosinophils % 2.5 % (0.00-10.9); Hematocrit 29.8 VOL% (35.7-47.0); Immature Granulocytes % 0.5 %; Immature Granulocytes Absolute 0.08 #; Lymphocytes # 0.9 10*3/uL (1.4-4.0); Lymphocytes % 4.8 % (21.3-54.2); Mean Corpuscular HGB Conc 30.2 GM/DL (32-36); Mean Corpuscular Hemoglobin 25 PG (27-34); Mean Corpuscular Volume 84.2 FL (87-102); Mean Platelet Volume 10.1 FL (9.6-12.0); Monocytes # 0.7 10*3/uL (0.11-0.8); Monocytes % 3.8 % (1.7-12.7); Neutrophils # 15.6 10*3/uL (1.4-7.4); Neutrophils % 88.1 % (38.7-73.9); Platelet Count 311 T/CUMM (130-400); Red Blood Count 3.54 MC/CUMM (3.8-5.5); Red Cell Distribution Width 17.5 % (9.3-17.3); White Blood Count 17.8 T/CUMM (4-12)
[2018-04-08 06:21] LABS: INR 1.9; PT Patient Result 19.2 SECS
[2018-04-08 06:32] LABS: Calcium 8.5 MG/DL (8.5-10.1); Osmolality,Calculated 295.7 MOS/KG (273-304)
[2018-04-08 06:39] LABS: Band Neutrophils 21 % (0-10); Eosinophils 7 % (0-10); Lymphocytes 8 % (20-55); Metamyelocytes 1 %; Segmented Neutrophils 62 % (50-85); Total Cells Counted 100
[2018-04-08 06:40] LABS: Acanthocytes Few; Anisocytosis 1+; Hypochromasia Slight; Platelet Estimate Normal
[2018-04-08 08:18] LABS: Basophils # 0.1 10*3/uL (0.0-0.2); Basophils % 0.3 % (0.0-0.8); Eosinophils # 0.5 10*3/uL (0.0-0.87); Eosinophils % 2.5 % (0.00-10.9); Hematocrit 29.5 VOL% (35.7-47.0); Hemoglobin 9.2 GM/DL (12.0-16.0); Immature Granulocytes % 0.3 %; Immature Granulocytes Absolute 0.06 #; Lymphocytes # 0.8 10*3/uL (1.4-4.0); Lymphocytes % 4.5 % (21.3-54.2); Mean Corpuscular HGB Conc 31.2 GM/DL (32-36); Mean Corpuscular Hemoglobin 26 PG (27-34); Mean Corpuscular Volume 83.8 FL (87-102); Mean Platelet Volume 10.4 FL (9.6-12.0); Monocytes # 0.6 10*3/uL (0.11-0.8); Monocytes % 3.6 % (1.7-12.7); Neutrophils # 15.9 10*3/uL (1.4-7.4); Neutrophils % 88.8 % (38.7-73.9); Platelet Count 321 T/CUMM (130-400); Red Blood Count 3.52 MC/CUMM (3.8-5.5); Red Cell Distribution Width 17.7 % (9.3-17.3); White Blood Count 17.9 T/CUMM (4-12)
[2018-04-08] MEDS: SODIUM CHLORIDE 0.45% 1,000 ML IV SCH ×2 (08:33→19:05)
[2018-04-08 08:46] LABS: Vitamin B12 266 PG/ML (211-911)
[2018-04-08 09:34] LABS: Band Neutrophils 44 % (0-10); Eosinophils 4 % (0-10); Lymphocytes 6 % (20-55); Platelet Estimate Normal; Segmented Neutrophils 43 % (50-85); Total Cells Counted 100
[2018-04-08 09:35] LABS: Anisocytosis 1+; Poikilocytosis 1+
[2018-04-08 10:01] LABS: Sedimentation Rate-Westergren 88 MM/HR (0-30)
[2018-04-08] MEDS: SPIRONOLACTONE 25 MG TABLET PO SCH (10:30)
[2018-04-08] MEDS: metOLazone 2.5 MG TABLET PO SCH (10:30)
[2018-04-08] MEDS: MAGNESIUM OXIDE 400 MG TABLET PO SCH ×3 (10:30→21:08)
[2018-04-08] MEDS: GABAPENTIN 600 MG TABLET PO SCH ×3 (10:30→21:08)
[2018-04-08] MEDS: BRIMONIDINE/TIMOLOL OPH SOLN 5 ML BOTTLE BOTH EYES SCH ×2 (10:42→21:08)
[2018-04-08] MEDS ORDERED: WARFARIN 5 MG TABLET PO SCH (18:00)
[2018-04-08] MEDS: BIMATOPROST 0.01% OPH SOLN 2.5 ML BOTTLE BOTH EYES SCH (21:08)
[2018-04-08] MEDS: INSULIN GLARGINE 100 UNIT/ML SUBCUT SCH (21:08)
[2018-04-09] MEDS: SODIUM CHLORIDE 0.45% 1,000 ML IV SCH ×4 (01:19→20:41)
[2018-04-09] MEDS: VANCOMYCIN INJ 1,250 MG in SODIUM CHLORIDE 0.9% 250 ML IV SCH (03:16)
[2018-04-09] MEDS: PIPERACILLIN/TAZOBACTAM 3,375 MG in SODIUM CHLORIDE 0.9% 100 ML IV SCH (06:06)
[2018-04-09 06:49] LABS: Basophils % 0.2 % (0.0-0.8); Eosinophils # 0.5 10*3/uL (0.0-0.87); Eosinophils % 3.2 % (0.00-10.9); Hematocrit 29.1 VOL% (35.7-47.0); Hemoglobin 8.6 GM/DL (12.0-16.0); Immature Granulocytes % 0.5 %; Immature Granulocytes Absolute 0.08 #; Lymphocytes # 0.7 10*3/uL (1.4-4.0); Lymphocytes % 4.8 % (21.3-54.2); Mean Corpuscular HGB Conc 29.6 GM/DL (32-36); Mean Corpuscular Hemoglobin 25 PG (27-34); Mean Corpuscular Volume 85.3 FL (87-102); Mean Platelet Volume 10.4 FL (9.6-12.0); Monocytes # 0.6 10*3/uL (0.11-0.8); Monocytes % 4.1 % (1.7-12.7); NRBC # 0.02 10*3/uL; Neutrophils # 13.2 10*3/uL (1.4-7.4); Neutrophils % 87.2 % (38.7-73.9); Platelet Count 327 T/CUMM (130-400); Red Blood Count 3.41 MC/CUMM (3.8-5.5); Red Cell Distribution Width 17.8 % (9.3-17.3); White Blood Count 15.2 T/CUMM (4-12)
[2018-04-09 07:18] LABS: Band Neutrophils 9 % (0-10); Eosinophils 1 % (0-10); Hypochromasia 1+; Lymphocytes 9 % (20-55); Segmented Neutrophils 76 % (50-85); Total Cells Counted 100
[2018-04-09 07:19] LABS: Burr Cells Slight; Microcytosis 1+; Ovalocytes Slight
[2018-04-09 07:26] LABS: Calcium 8.5 MG/DL (8.5-10.1); Osmolality,Calculated 292.8 MOS/KG (273-304); Potassium 3.7 MMOL/L (3.5-5.1)
[2018-04-09] MEDS: MEROPENEM 500 MG in SYRINGE 1 EACH IV SCH ×3 (09:04→23:24)
[2018-04-09 10:41] LABS: Hemoglobin A1 (Alkaline) 98.1 % (96.5-98.5); Hemoglobin A2 (Alkaline) 1.9 % (1.5-3.5)
[2018-04-09] MEDS: LEVOFLOXACIN INJ 750 MG in PREMIX 1 EACH IV SCH (10:42)
[2018-04-09] MEDS: GABAPENTIN 600 MG TABLET PO SCH (11:20)
[2018-04-09] MEDS: MAGNESIUM OXIDE 400 MG TABLET PO SCH ×3 (11:20→21:17)
[2018-04-09] MEDS: BRIMONIDINE/TIMOLOL OPH SOLN 5 ML BOTTLE BOTH EYES SCH ×2 (17:46→21:17)
[2018-04-09] MEDS: WARFARIN 7.5 MG TABLET PO SCH (18:13)
[2018-04-09] MEDS: INSULIN GLARGINE 100 UNIT/ML SUBCUT SCH (21:11)
[2018-04-09] MEDS: BIMATOPROST 0.01% OPH SOLN 2.5 ML BOTTLE BOTH EYES SCH (21:17)
[2018-04-10] MEDS: SODIUM CHLORIDE 0.45% 1,000 ML IV SCH ×4 (01:23→18:17)
[2018-04-10 03:18] LABS: Basophils % 0.2 % (0.0-0.8); Hemoglobin 8.1 GM/DL (12.0-16.0); Immature Granulocytes % 0.8 %; Immature Granulocytes Absolute 0.13 #; Lymphocytes # 1.2 10*3/uL (1.4-4.0); Lymphocytes % 6.9 % (21.3-54.2); Mean Corpuscular HGB Conc 31.2 GM/DL (32-36); Mean Corpuscular Hemoglobin 26 PG (27-34); Mean Corpuscular Volume 82.3 FL (87-102); Mean Platelet Volume 10.2 FL (9.6-12.0); Monocytes # 0.7 10*3/uL (0.11-0.8); Monocytes % 4.3 % (1.7-12.7); NRBC # 0.04 10*3/uL; Neutrophils # 14.1 10*3/uL (1.4-7.4); Neutrophils % 81.8 % (38.7-73.9); Platelet Count 350 T/CUMM (130-400); Red Blood Count 3.16 MC/CUMM (3.8-5.5); Red Cell Distribution Width 17.8 % (9.3-17.3); White Blood Count 17.2 T/CUMM (4-12)
[2018-04-10 03:30] LABS: INR 4.3
[2018-04-10 03:32] LABS: Calcium 8.2 MG/DL (8.5-10.1); Osmolality,Calculated 286.3 MOS/KG (273-304); Potassium 3.2 MMOL/L (3.5-5.1)
[2018-04-10 04:30] LABS: PT Patient Result 42.8 SECS
[2018-04-10] MEDS: MEROPENEM 500 MG in SYRINGE 1 EACH IV SCH ×3 (06:05→22:45)
[2018-04-10] MEDS: BRIMONIDINE/TIMOLOL OPH SOLN 5 ML BOTTLE BOTH EYES SCH ×2 (08:25→20:41)
[2018-04-10] MEDS: MAGNESIUM OXIDE 400 MG TABLET PO SCH ×3 (08:26→20:41)
[2018-04-10] MEDS ORDERED: CHLORHEXIDINE 4% SOLN 118 ML BOTTLE TOP ONE (09:05)
[2018-04-10] MEDS ORDERED: DEXTROSE 50% 25 GM/50 ML VIAL IV PRN (09:24)
[2018-04-10] MEDS ORDERED: GLUCAGON 1 MG VIAL IM PRN (09:24)
[2018-04-10] MEDS: SODIUM HYPOCHLORITE 0.25% IRRIG 473 ML BOTTLE TOP SCH (11:44)
[2018-04-10] MEDS: POTASSIUM CHLORIDE 20 MEQ TABLET PO SCH ×3 (11:59→18:17)
[2018-04-10] MEDS: INSULIN REGULAR 100 UNIT/ML SUBCUT SCH ×2 (12:02→18:53)
[2018-04-10] MEDS: VANCOMYCIN INJ 1,250 MG in SODIUM CHLORIDE 0.9% 250 ML IV SCH (13:46)
[2018-04-10] MEDS: BIMATOPROST 0.01% OPH SOLN 2.5 ML BOTTLE BOTH EYES SCH (20:41)
[2018-04-10] MEDS: INSULIN GLARGINE 100 UNIT/ML SUBCUT SCH (23:46)
[2018-04-11] MEDS: INSULIN REGULAR 100 UNIT/ML SUBCUT SCH ×5 (00:04→23:32)
[2018-04-11] MEDS: SODIUM CHLORIDE 0.45% 1,000 ML IV SCH (00:46)
[2018-04-11] MEDS: MEROPENEM 500 MG in SYRINGE 1 EACH IV SCH (06:32)
[2018-04-11 07:07] LABS: INR 4.8
[2018-04-11 07:08] LABS: PT Patient Result 48.1 SECS
[2018-04-11 07:28] LABS: Calcium 8.3 MG/DL (8.5-10.1); Osmolality,Calculated 283.3 MOS/KG (273-304); Potassium 3.4 MMOL/L (3.5-5.1)
[2018-04-11 07:31] LABS: Prealbumin 16.6 MG/DL (20-40)
[2018-04-11] MEDS ORDERED: PHYTONADIONE 5 MG/5 ML ORAL.SYR PO ONE (09:08)
[2018-04-11] MEDS: BRIMONIDINE/TIMOLOL OPH SOLN 5 ML BOTTLE BOTH EYES SCH ×2 (09:45→20:36)
[2018-04-11] MEDS: LEVOFLOXACIN INJ 750 MG in PREMIX 1 EACH IV SCH (09:46)
[2018-04-11] MEDS: SODIUM HYPOCHLORITE 0.25% IRRIG 473 ML BOTTLE TOP SCH (09:46)
[2018-04-11] MEDS: MAGNESIUM OXIDE 400 MG TABLET PO SCH (09:58)
[2018-04-11] MEDS: BIMATOPROST 0.01% OPH SOLN 2.5 ML BOTTLE BOTH EYES SCH (20:36)
[2018-04-11] MEDS: INSULIN GLARGINE 100 UNIT/ML SUBCUT SCH (21:18)
[2018-04-12] MEDS: INSULIN REGULAR 100 UNIT/ML SUBCUT SCH ×2 (05:38→12:15)
[2018-04-12 06:44] LABS: Basophils % 0.4 % (0.0-0.8); Eosinophils # 0.7 10*3/uL (0.0-0.87); Eosinophils % 6.3 % (0.00-10.9); Hemoglobin 8.5 GM/DL (12.0-16.0); Immature Granulocytes % 2.5 %; Immature Granulocytes Absolute 0.29 #; Lymphocytes # 1.6 10*3/uL (1.4-4.0); Lymphocytes % 14.3 % (21.3-54.2); Mean Corpuscular HGB Conc 31.5 GM/DL (32-36); Mean Corpuscular Hemoglobin 25 PG (27-34); Mean Corpuscular Volume 79.6 FL (87-102); Mean Platelet Volume 10.1 FL (9.6-12.0); Monocytes # 0.9 10*3/uL (0.11-0.8); Monocytes % 7.9 % (1.7-12.7); Neutrophils # 7.8 10*3/uL (1.4-7.4); Neutrophils % 68.6 % (38.7-73.9); Platelet Count 393 T/CUMM (130-400); Red Blood Count 3.39 MC/CUMM (3.8-5.5); Red Cell Distribution Width 17.2 % (9.3-17.3); White Blood Count 11.4 T/CUMM (4-12)
[2018-04-12 07:00] LABS: Albumin 1.8 G/DL (3.4-5.0); Calcium 8.8 MG/DL (8.5-10.1); Osmolality,Calculated 285.1 MOS/KG (273-304); Potassium 3.4 MMOL/L (3.5-5.1)
[2018-04-12 07:45] LABS: INR 1.3; PT Patient Result 13.5 SECS
[2018-04-12] MEDS: BRIMONIDINE/TIMOLOL OPH SOLN 5 ML BOTTLE BOTH EYES SCH (08:46)
[2018-04-12] MEDS ORDERED: LEVOFLOXACIN INJ 750 MG in PREMIX 1 EACH IV SCH (09:00)
[2018-04-12 11:43] VITALS: BP 127/49
[2018-04-12] MEDS: SODIUM HYPOCHLORITE 0.25% IRRIG 473 ML BOTTLE TOP SCH (13:45)
== END 2018-04-12 14:46 | disposition home health service (06) | DRG 871 ==
LOC: EDUNIT# → EDBD → N.ED 21:06 → SUATTDRO 04-07 01:34 → N.EDINP 04-07 01:34 → N.3E 04-07 02:26
PROVIDERS: ADMIT Internal Medicine Infectious Disease; ATTEND Internal Medicine Cardiovascular Disease

== ENCOUNTER 2018-07-24 15:56 | Inpatient (IN) ==
[2018-07-24] MEDS ORDERED: SODIUM CHLORIDE 0.9% 500 ML IV STA (17:17)
[2018-07-24 18:02] LABS: Basophils # 0.1 10*3/uL (0.0-0.2); Basophils % 0.7 % (0.0-0.8); Eosinophils # 0.7 10*3/uL (0.0-0.87); Eosinophils % 8.6 % (0.00-10.9); Hematocrit 35.9 VOL% (35.7-47.0); Hemoglobin 10.7 GM/DL (12.0-16.0); Immature Granulocytes % 0.4 %; Immature Granulocytes Absolute 0.03 #; Lymphocytes % 23.5 % (21.3-54.2); Mean Corpuscular HGB Conc 29.8 GM/DL (32-36); Mean Corpuscular Hemoglobin 26 PG (27-34); Mean Corpuscular Volume 87.3 FL (87-102); Mean Platelet Volume 11.3 FL (9.6-12.0); Monocytes # 0.4 10*3/uL (0.11-0.8); Monocytes % 4.9 % (1.7-12.7); Neutrophils # 5.1 10*3/uL (1.4-7.4); Neutrophils % 61.9 % (38.7-73.9); Platelet Count 189 T/CUMM (130-400); Red Blood Count 4.11 MC/CUMM (3.8-5.5); Red Cell Distribution Width 16.6 % (9.3-17.3); White Blood Count 8.3 T/CUMM (4-12)
[2018-07-24 18:16] LABS: Apearance,Urine CLOUDY (Clear); Bilirubin,Urine Negative (Negative); Blood, Urine Small mg/dL (Negative); Glucose,Urine (UA) Negative (Negative); Ketones,Urine Negative (Negative); Mucus,Urine Occasional /LPF (Occasional); Nitrite,Urine Positive (Negative); Protein,Urine Negative; RBC,Urine 5 /HPF (0-4); Squamous Epithelial Cell,Urine Occasional /HPF (0-10); Urine Color Yellow (Yellow); Urine Specific Gravity 1.015 (1.001-1.035); Urine Urobilinogen < 2.0 EU/DL (0.2-1.0); WBC,Urine 243 /HPF (0-6)
[2018-07-24 18:24] LABS: INR 1.2; PT Patient Result 12.5 SECS
[2018-07-24] MEDS ORDERED: cefTRIAXone 1,000 MG in SODIUM CHLORIDE 0.9% 100 ML IV STA (18:26)
[2018-07-24 18:30] LABS: Lactic Acid 1.3 MMOL/L (0.4-2.0)
[2018-07-24 18:32] LABS: Alanine Aminotransferase 10 U/L (13-56); Albumin 2.9 G/DL (3.4-5.0); Alkaline Phosphatase 70 U/L (45-117); Aspartate Amino Transferase 8 U/L (0-37); Bilirubin,Total < 0.39 MG/DL (0.2-1.0); Blood Urea Nitrogen 12 MG/DL (7-18); Calcium 9.1 MG/DL (8.5-10.1); Glucose 88 MG/DL (74-106); Osmolality,Calculated 288.6 MOS/KG (273-304); Potassium 3.6 MMOL/L (3.5-5.1); Sodium 146 MMOL/L (136-145); Total Protein 7.4 G/DL (6.4-8.3)
[2018-07-24 18:35] LABS: Ammonia < 10 UMOL/L (11-32)
[2018-07-24 19:10] LABS: Sedimentation Rate-Westergren 70 MM/HR (0-30)
[2018-07-24] MEDS ORDERED: GLUCAGON 1 MG VIAL IM PRN (22:13)
[2018-07-24] MEDS ORDERED: DEXTROSE 50% 25 GM/50 ML VIAL IV PRN (22:13)
[2018-07-24] MEDS ORDERED: SKIN HEALING OINT (AQUAPHOR) 50 GM TUBE TOP PRN (22:16)
[2018-07-24] MEDS ORDERED: DOCUSATE/SENNA 50-8.6 MG TABLET PO PRN (22:16)
[2018-07-24] MEDS ORDERED: BACLOFEN 10 MG TABLET PO PRN (22:16)
[2018-07-24] MEDS ORDERED: SODIUM CHLORIDE 0.45% 1,000 ML IV SCH (22:30)
[2018-07-24] MEDS ORDERED: WARFARIN 5 MG TABLET PO ONE (23:00)
[2018-07-25 05:03] LABS: INR 1.2; PT Patient Result 12.5 SECS
[2018-07-25] MEDS: GABAPENTIN 300 MG CAPSULE PO SCH ×3 (05:13→21:35)
[2018-07-25 05:45] LABS: Alanine Aminotransferase < 9 U/L (13-56); Albumin 2.7 G/DL (3.4-5.0); Alkaline Phosphatase 67 U/L (45-117); Aspartate Amino Transferase 6 U/L (0-37); Bilirubin,Total < 0.39 MG/DL (0.2-1.0); Blood Urea Nitrogen 14 MG/DL (7-18); Calcium 9.1 MG/DL (8.5-10.1); Glucose 131 MG/DL (74-106); Osmolality,Calculated 296.3 MOS/KG (273-304); Potassium 3.8 MMOL/L (3.5-5.1); Sodium 148 MMOL/L (136-145); Total Protein 6.7 G/DL (6.4-8.3)
[2018-07-25 06:07] LABS: Basophils # 0.1 10*3/uL (0.0-0.2); Basophils % 0.6 % (0.0-0.8); Eosinophils # 0.7 10*3/uL (0.0-0.87); Eosinophils % 5.6 % (0.00-10.9); Hematocrit 34.5 VOL% (35.7-47.0); Immature Granulocytes % 0.4 %; Immature Granulocytes Absolute 0.05 #; Lymphocytes # 1.6 10*3/uL (1.4-4.0); Lymphocytes % 13.6 % (21.3-54.2); Mean Corpuscular HGB Conc 29.3 GM/DL (32-36); Mean Corpuscular Hemoglobin 26 PG (27-34); Mean Corpuscular Volume 87.3 FL (87-102); Mean Platelet Volume 11.4 FL (9.6-12.0); Monocytes # 0.7 10*3/uL (0.11-0.8); Monocytes % 5.7 % (1.7-12.7); Neutrophils # 8.8 10*3/uL (1.4-7.4); Neutrophils % 74.1 % (38.7-73.9); Red Blood Count 3.95 MC/CUMM (3.8-5.5); Red Cell Distribution Width 16.8 % (9.3-17.3)
[2018-07-25 06:08] LABS: Hemoglobin 10.1 GM/DL (12.0-16.0); Platelet Count 306 T/CUMM (130-400); White Blood Count 11.9 T/CUMM (4-12)
[2018-07-25] MEDS: INSULIN REGULAR 100 UNIT/ML SUBCUT SCH ×4 (07:30→21:32)
[2018-07-25] MEDS: metOLazone 5 MG TABLET PO SCH (09:47)
[2018-07-25] MEDS: SPIRONOLACTONE 50 MG TABLET PO SCH (09:49)
[2018-07-25] MEDS: PANTOPRAZOLE 40 MG TABLET PO SCH (09:49)
[2018-07-25] MEDS: METHENAMINE HIPPURATE 1 GM TABLET PO SCH ×2 (09:50→21:35)
[2018-07-25] MEDS: MAGNESIUM OXIDE 400 MG TABLET PO SCH ×3 (09:50→21:36)
[2018-07-25] MEDS: ENOXAPARIN 40 MG/0.4 ML SYRINGE SUBCUT SCH (09:52)
[2018-07-25] MEDS: BRIMONIDINE/TIMOLOL OPH SOLN 5 ML BOTTLE BOTH EYES SCH ×2 (09:53→21:37)
[2018-07-25] MEDS: BRINZOLAMIDE 1% OPH SUSP 10 ML BOTTLE BOTH EYES SCH ×2 (09:55→21:37)
[2018-07-25] MEDS: SODIUM HYPOCHLORITE 0.25% IRRIG 473 ML BOTTLE TOP SCH (15:41)
[2018-07-25] MEDS: VANCOMYCIN INJ 1,000 MG in SODIUM CHLORIDE 0.9% 250 ML IV SCH (17:14)
[2018-07-25] MEDS: WARFARIN 5 MG TABLET PO SCH (18:16)
[2018-07-25] MEDS ORDERED: cefTRIAXone 1,000 MG in SYRINGE 1 EACH IV SCH (21:00)
[2018-07-25] MEDS: INSULIN GLARGINE 100 UNIT/ML SUBCUT SCH (21:33)
[2018-07-25] MEDS: BIMATOPROST 0.01% OPH SOLN 2.5 ML BOTTLE BOTH EYES SCH (21:36)
[2018-07-26] MEDS: VANCOMYCIN INJ 1,000 MG in SODIUM CHLORIDE 0.9% 250 ML IV SCH ×2 (05:00→18:31)
[2018-07-26] MEDS: GABAPENTIN 300 MG CAPSULE PO SCH ×3 (05:04→21:11)
[2018-07-26 06:04] LABS: INR 1.3; PT Patient Result 13.8 SECS
[2018-07-26 06:24] LABS: Calcium 8.3 MG/DL (8.5-10.1); Osmolality,Calculated 285.8 MOS/KG (273-304); Potassium 3.5 MMOL/L (3.5-5.1)
[2018-07-26] MEDS: INSULIN REGULAR 100 UNIT/ML SUBCUT SCH ×4 (08:21→21:16)
[2018-07-26] MEDS: MAGNESIUM OXIDE 400 MG TABLET PO SCH ×3 (08:54→21:11)
[2018-07-26] MEDS: METHENAMINE HIPPURATE 1 GM TABLET PO SCH ×2 (08:54→21:11)
[2018-07-26] MEDS: PANTOPRAZOLE 40 MG TABLET PO SCH (08:54)
[2018-07-26] MEDS: SPIRONOLACTONE 50 MG TABLET PO SCH (08:54)
[2018-07-26] MEDS: ENOXAPARIN 40 MG/0.4 ML SYRINGE SUBCUT SCH (08:54)
[2018-07-26] MEDS: BRIMONIDINE/TIMOLOL OPH SOLN 5 ML BOTTLE BOTH EYES SCH ×2 (08:55→21:20)
[2018-07-26] MEDS: BRINZOLAMIDE 1% OPH SUSP 10 ML BOTTLE BOTH EYES SCH ×2 (08:55→21:19)
[2018-07-26] MEDS: SODIUM HYPOCHLORITE 0.25% IRRIG 473 ML BOTTLE TOP SCH (08:56)
[2018-07-26 09:56] LABS: Folate 7.9 NG/ML (5.4-24.0); Vitamin B12 645 PG/ML (211-911)
[2018-07-26] MEDS: PIPERACILLIN/TAZOBACTAM 3,375 MG in SODIUM CHLORIDE 0.9% 100 ML IV SCH ×2 (13:51→21:25)
[2018-07-26] MEDS: WARFARIN 5 MG TABLET PO SCH (18:31)
[2018-07-26] MEDS: INSULIN GLARGINE 100 UNIT/ML SUBCUT SCH (21:16)
[2018-07-26] MEDS: BIMATOPROST 0.01% OPH SOLN 2.5 ML BOTTLE BOTH EYES SCH (21:21)
[2018-07-27] MEDS: VANCOMYCIN INJ 1,000 MG in SODIUM CHLORIDE 0.9% 250 ML IV SCH ×2 (04:34→17:45)
[2018-07-27] MEDS: PIPERACILLIN/TAZOBACTAM 3,375 MG in SODIUM CHLORIDE 0.9% 100 ML IV SCH ×3 (05:44→21:01)
[2018-07-27] MEDS: GABAPENTIN 300 MG CAPSULE PO SCH ×3 (05:45→21:04)
[2018-07-27 06:38] LABS: Basophils % 0.5 % (0.0-0.8); Eosinophils # 0.7 10*3/uL (0.0-0.87); Eosinophils % 9.1 % (0.00-10.9); Hematocrit 30.2 VOL% (35.7-47.0); Immature Granulocytes % 0.3 %; Immature Granulocytes Absolute 0.02 #; Lymphocytes # 1.6 10*3/uL (1.4-4.0); Mean Corpuscular HGB Conc 29.8 GM/DL (32-36); Mean Corpuscular Hemoglobin 26 PG (27-34); Mean Corpuscular Volume 86.5 FL (87-102); Mean Platelet Volume 10.1 FL (9.6-12.0); Monocytes # 0.6 10*3/uL (0.11-0.8); Monocytes % 7.4 % (1.7-12.7); Neutrophils # 4.9 10*3/uL (1.4-7.4); Neutrophils % 62.7 % (38.7-73.9); Platelet Count 314 T/CUMM (130-400); Red Blood Count 3.49 MC/CUMM (3.8-5.5); Red Cell Distribution Width 16.7 % (9.3-17.3); White Blood Count 7.8 T/CUMM (4-12)
[2018-07-27 06:43] LABS: INR 1.5; PT Patient Result 15.3 SECS
[2018-07-27 06:47] LABS: Calcium 8.4 MG/DL (8.5-10.1); Osmolality,Calculated 285.8 MOS/KG (273-304); Potassium 3.5 MMOL/L (3.5-5.1)
[2018-07-27] MEDS: INSULIN REGULAR 100 UNIT/ML SUBCUT SCH ×3 (07:50→17:46)
[2018-07-27] MEDS: SPIRONOLACTONE 50 MG TABLET PO SCH (08:43)
[2018-07-27] MEDS: MAGNESIUM OXIDE 400 MG TABLET PO SCH ×3 (08:43→21:00)
[2018-07-27] MEDS: METHENAMINE HIPPURATE 1 GM TABLET PO SCH ×2 (08:43→21:00)
[2018-07-27] MEDS: PANTOPRAZOLE 40 MG TABLET PO SCH (08:43)
[2018-07-27] MEDS: metOLazone 5 MG TABLET PO SCH (08:43)
[2018-07-27] MEDS: ENOXAPARIN 40 MG/0.4 ML SYRINGE SUBCUT SCH (08:44)
[2018-07-27] MEDS: SODIUM HYPOCHLORITE 0.25% IRRIG 473 ML BOTTLE TOP SCH (08:45)
[2018-07-27] MEDS: BRINZOLAMIDE 1% OPH SUSP 10 ML BOTTLE BOTH EYES SCH ×2 (08:45→22:55)
[2018-07-27] MEDS: BRIMONIDINE/TIMOLOL OPH SOLN 5 ML BOTTLE BOTH EYES SCH ×2 (08:45→22:56)
[2018-07-27] MEDS ORDERED: WARFARIN 5 MG TABLET PO ONE (09:22)
[2018-07-27] MEDS: BRIMONIDINE 0.1% OPH SOLN 5 ML BOTTLE BOTH EYES SCH ×3 (11:06→14:44)
[2018-07-27] MEDS: WARFARIN 5 MG TABLET PO SCH (18:20)
[2018-07-27] MEDS: INSULIN GLARGINE 100 UNIT/ML SUBCUT SCH (20:56)
[2018-07-27] MEDS: BIMATOPROST 0.01% OPH SOLN 2.5 ML BOTTLE BOTH EYES SCH (22:57)
[2018-07-28] MEDS: INSULIN REGULAR 100 UNIT/ML SUBCUT SCH ×5 (01:43→21:17)
[2018-07-28 02:29] LABS: INR 1.7; PT Patient Result 17.3 SECS
[2018-07-28] MEDS: PIPERACILLIN/TAZOBACTAM 3,375 MG in SODIUM CHLORIDE 0.9% 100 ML IV SCH ×2 (06:19→17:58)
[2018-07-28] MEDS: GABAPENTIN 300 MG CAPSULE PO SCH ×3 (06:20→21:06)
[2018-07-28] MEDS: SPIRONOLACTONE 50 MG TABLET PO SCH (09:06)
[2018-07-28] MEDS: MAGNESIUM OXIDE 400 MG TABLET PO SCH ×3 (09:06→21:07)
[2018-07-28] MEDS: METHENAMINE HIPPURATE 1 GM TABLET PO SCH ×2 (09:06→21:07)
[2018-07-28] MEDS: PANTOPRAZOLE 40 MG TABLET PO SCH (09:06)
[2018-07-28] MEDS: ENOXAPARIN 40 MG/0.4 ML SYRINGE SUBCUT SCH (09:07)
[2018-07-28] MEDS: BRINZOLAMIDE 1% OPH SUSP 10 ML BOTTLE BOTH EYES SCH ×2 (09:07→21:07)
[2018-07-28] MEDS: BRIMONIDINE/TIMOLOL OPH SOLN 5 ML BOTTLE BOTH EYES SCH ×2 (09:07→21:07)
[2018-07-28] MEDS: SODIUM HYPOCHLORITE 0.25% IRRIG 473 ML BOTTLE TOP SCH (09:08)
[2018-07-28] MEDS: BRIMONIDINE 0.1% OPH SOLN 5 ML BOTTLE BOTH EYES SCH (09:08)
[2018-07-28] MEDS: WARFARIN 5 MG TABLET PO SCH (17:58)
[2018-07-28] MEDS: INSULIN GLARGINE 100 UNIT/ML SUBCUT SCH (21:07)
[2018-07-28] MEDS: BIMATOPROST 0.01% OPH SOLN 2.5 ML BOTTLE BOTH EYES SCH (21:07)
[2018-07-29] MEDS: PIPERACILLIN/TAZOBACTAM 3,375 MG in SODIUM CHLORIDE 0.9% 100 ML IV SCH ×3 (02:13→17:38)
[2018-07-29 05:34] LABS: INR 2.1
[2018-07-29 05:40] LABS: PT Patient Result 21.6 SECS
[2018-07-29] MEDS: GABAPENTIN 300 MG CAPSULE PO SCH ×3 (06:20→21:52)
[2018-07-29] MEDS: INSULIN REGULAR 100 UNIT/ML SUBCUT SCH ×4 (08:12→22:03)
[2018-07-29] MEDS: PANTOPRAZOLE 40 MG TABLET PO SCH (09:30)
[2018-07-29] MEDS: SPIRONOLACTONE 50 MG TABLET PO SCH (09:30)
[2018-07-29] MEDS: metOLazone 5 MG TABLET PO SCH (09:30)
[2018-07-29] MEDS: MAGNESIUM OXIDE 400 MG TABLET PO SCH ×3 (09:31→21:53)
[2018-07-29] MEDS: SODIUM HYPOCHLORITE 0.25% IRRIG 473 ML BOTTLE TOP SCH (09:31)
[2018-07-29] MEDS: BRIMONIDINE/TIMOLOL OPH SOLN 5 ML BOTTLE BOTH EYES SCH ×2 (09:32→21:56)
[2018-07-29] MEDS: BRINZOLAMIDE 1% OPH SUSP 10 ML BOTTLE BOTH EYES SCH ×2 (09:32→21:56)
[2018-07-29] MEDS: METHENAMINE HIPPURATE 1 GM TABLET PO SCH ×2 (09:34→21:52)
[2018-07-29] MEDS: BRIMONIDINE 0.1% OPH SOLN 5 ML BOTTLE BOTH EYES SCH (09:36)
[2018-07-29] MEDS: WARFARIN 5 MG TABLET PO SCH (17:38)
[2018-07-29] MEDS: INSULIN GLARGINE 100 UNIT/ML SUBCUT SCH (21:53)
[2018-07-29] MEDS: BIMATOPROST 0.01% OPH SOLN 2.5 ML BOTTLE BOTH EYES SCH (21:56)
[2018-07-30] MEDS: PIPERACILLIN/TAZOBACTAM 3,375 MG in SODIUM CHLORIDE 0.9% 100 ML IV SCH ×3 (01:48→17:17)
[2018-07-30] MEDS: GABAPENTIN 300 MG CAPSULE PO SCH ×3 (05:20→21:43)
[2018-07-30 07:32] LABS: INR 2.3
[2018-07-30 07:45] LABS: PT Patient Result 23.8 SECS
[2018-07-30] MEDS: INSULIN REGULAR 100 UNIT/ML SUBCUT SCH ×4 (08:47→21:52)
[2018-07-30] MEDS: SPIRONOLACTONE 50 MG TABLET PO SCH (08:48)
[2018-07-30] MEDS: PANTOPRAZOLE 40 MG TABLET PO SCH (08:48)
[2018-07-30] MEDS: BRIMONIDINE/TIMOLOL OPH SOLN 5 ML BOTTLE BOTH EYES SCH ×2 (08:49→21:47)
[2018-07-30] MEDS: METHENAMINE HIPPURATE 1 GM TABLET PO SCH ×2 (08:49→21:43)
[2018-07-30] MEDS: BRINZOLAMIDE 1% OPH SUSP 10 ML BOTTLE BOTH EYES SCH ×2 (08:50→21:47)
[2018-07-30] MEDS: BRIMONIDINE 0.1% OPH SOLN 5 ML BOTTLE BOTH EYES SCH (08:50)
[2018-07-30] MEDS: MAGNESIUM OXIDE 400 MG TABLET PO SCH ×3 (09:59→21:43)
[2018-07-30] MEDS: SODIUM HYPOCHLORITE 0.25% IRRIG 473 ML BOTTLE TOP SCH (11:15)
[2018-07-30] MEDS: WARFARIN 5 MG TABLET PO SCH (17:17)
[2018-07-30] MEDS: INSULIN GLARGINE 100 UNIT/ML SUBCUT SCH (21:45)
[2018-07-30] MEDS: BIMATOPROST 0.01% OPH SOLN 2.5 ML BOTTLE BOTH EYES SCH (21:47)
[2018-07-31] MEDS: PIPERACILLIN/TAZOBACTAM 3,375 MG in SODIUM CHLORIDE 0.9% 100 ML IV SCH ×3 (01:43→19:21)
[2018-07-31] MEDS: GABAPENTIN 300 MG CAPSULE PO SCH ×2 (04:59→16:25)
[2018-07-31 05:40] LABS: INR 2.2
[2018-07-31] MEDS: INSULIN REGULAR 100 UNIT/ML SUBCUT SCH ×3 (09:42→19:20)
[2018-07-31] MEDS: METHENAMINE HIPPURATE 1 GM TABLET PO SCH (09:44)
[2018-07-31] MEDS: SPIRONOLACTONE 50 MG TABLET PO SCH (09:44)
[2018-07-31] MEDS: metOLazone 5 MG TABLET PO SCH (09:45)
[2018-07-31] MEDS: PANTOPRAZOLE 40 MG TABLET PO SCH (09:45)
[2018-07-31] MEDS: MAGNESIUM OXIDE 400 MG TABLET PO SCH ×2 (09:45→16:26)
[2018-07-31] MEDS: SODIUM HYPOCHLORITE 0.25% IRRIG 473 ML BOTTLE TOP SCH (09:45)
[2018-07-31] MEDS: BRIMONIDINE/TIMOLOL OPH SOLN 5 ML BOTTLE BOTH EYES SCH (09:46)
[2018-07-31] MEDS: BRINZOLAMIDE 1% OPH SUSP 10 ML BOTTLE BOTH EYES SCH (09:46)
[2018-07-31] MEDS: BRIMONIDINE 0.1% OPH SOLN 5 ML BOTTLE BOTH EYES SCH (09:53)
[2018-07-31 16:50] VITALS: BP 116/64
[2018-07-31] MEDS: WARFARIN 5 MG TABLET PO SCH (19:20)
== END 2018-07-31 15:30 | disposition home health service (06) | DRG 689 ==
LOC: EDUNIT# → EDBD → EDSEX → N.ED 15:56 → SUATTDRO 22:13 → N.EDINP 22:40 → N.4E 22:46
PROVIDERS: ADMIT Internal Medicine; ATTEND Internal Medicine

== ENCOUNTER 2019-08-09 00:01 | Inpatient (IN) ==
[2019-08-09] MEDS ORDERED: VANCOMYCIN INJ 1,250 MG in SODIUM CHLORIDE 0.9% 250 ML IV STA (00:47)
[2019-08-09] MEDS ORDERED: CEFEPIME 2,000 MG in SODIUM CHLORIDE 0.9% 100 ML IV STA ×2 (00:47→00:53)
[2019-08-09] MEDS ORDERED: ACETAMINOPHEN 500 MG TABLET PO STA (00:47)
[2019-08-09] MEDS ORDERED: SODIUM CHLORIDE 0.9% 1,000 ML IV STA (00:47)
[2019-08-09] MEDS ORDERED: KETOROLAC 30 MG/1 ML VIAL IV STA (00:48)
[2019-08-09 00:55] LABS: Basophils # 0.1 10*3/uL (0.0-0.2); Basophils % 0.3 % (0.0-0.8); Eosinophils % 0.1 % (0.00-10.9); Hematocrit 33.9 VOL% (35.7-47.0); Hemoglobin 10.5 GM/DL (12.0-16.0); Immature Granulocytes % 0.7 %; Immature Granulocytes Absolute 0.11 #; Lymphocytes # 0.3 10*3/uL (1.4-4.0); Lymphocytes % 1.7 % (21.3-54.2); Mean Corpuscular Volume 90.2 FL (87-102); Mean Platelet Volume 10.2 FL (9.6-12.0); Monocytes % 3.9 % (1.7-12.7); Neutrophils % 93.3 % (38.7-73.9); Platelet Count 216 T/CUMM (130-400); Red Blood Count 3.76 MC/CUMM (3.8-5.5); Red Cell Distribution Width 14.3 % (9.3-17.3); White Blood Count 15.7 T/CUMM (4-12)
[2019-08-09 01:20] LABS: Albumin 2.6 G/DL (3.4-5.0); Bilirubin,Total 1.2 MG/DL (0.2-1.0); Calcium 8.5 MG/DL (8.5-10.1); Osmolality,Calculated 282.4 MOS/KG (273-304); Total Protein 6.8 G/DL (6.4-8.3)
[2019-08-09 01:28] LABS: Band Neutrophils 5 % (0-10); Segmented Neutrophils 93 % (50-85); Total Cells Counted 100
[2019-08-09 01:29] LABS: Anisocytosis 1+; Platelet Estimate Adequate
[2019-08-09 02:03] LABS: Amorphous Crystals,Urine Moderate /HPF (Few); Apearance,Urine CLOUDY (Clear); Bacteria,Urine Many /HPF (Few); Bilirubin,Urine Negative (Negative); Blood, Urine Moderate mg/dL (Negative); Glucose,Urine (UA) Negative (Negative); Ketones,Urine Negative (Negative); Mucus,Urine Few /LPF (Occasional); Nitrite,Urine Negative (Negative); Protein,Urine 100 MG/DL; RBC,Urine 11 /HPF (0-4); Squamous Epithelial Cell,Urine Moderate /HPF (0-10); Urine Color Amber (Yellow); Urine Specific Gravity 1.014 (1.001-1.035); WBC,Urine 388 /HPF (0-6)
[2019-08-09] MEDS ORDERED: cefTRIAXone 1,000 MG in SODIUM CHLORIDE 0.9% 100 ML IV STA (02:16)
[2019-08-09] MEDS ORDERED: GENTAMICIN INJ 80 MG in SODIUM CHLORIDE 0.9% 100 ML IV STA (02:16)
[2019-08-09] MEDS ORDERED: GENTAMICIN INJ 50 ML IV STA (02:20)
[2019-08-09] MEDS ORDERED: GLUCAGON 1 MG VIAL IM PRN (03:00)
[2019-08-09] MEDS ORDERED: DEXTROSE 50% 25 GM/50 ML VIAL IV PRN (03:00)
[2019-08-09] MEDS ORDERED: ACETAMINOPHEN 325 MG TABLET PO PRN (03:00)
[2019-08-09] MEDS ORDERED: DOCUSATE/SENNA 50-8.6 MG TABLET PO PRN (03:06)
[2019-08-09 05:58] LABS: INR 1.1; PT Patient Result 11.9 SECS (9.6-12.2)
[2019-08-09] MEDS: PANTOPRAZOLE 40 MG TABLET PO SCH (08:40)
[2019-08-09] MEDS: metOLazone 5 MG TABLET PO SCH (08:40)
[2019-08-09] MEDS: GABAPENTIN 600 MG TABLET PO SCH ×3 (08:41→20:12)
[2019-08-09] MEDS: SPIRONOLACTONE 50 MG TABLET PO SCH (08:41)
[2019-08-09] MEDS: FLUCONAZOLE 100 MG TABLET PO SCH (08:41)
[2019-08-09] MEDS: PIPERACILLIN/TAZOBACTAM 3,375 MG in SODIUM CHLORIDE 0.9% 100 ML IV SCH ×2 (08:52→18:44)
[2019-08-09] MEDS ORDERED: NON-FORMULARY MEDICATION (Omeprazole 20 MG) PO SCH (09:00)
[2019-08-09] MEDS: INSULIN REGULAR 100 UNIT/ML SUBCUT SCH ×4 (10:50→20:00)
[2019-08-09] MEDS: BRIMONIDINE 0.1% OPH SOLN 5 ML BOTTLE BOTH EYES SCH (12:38)
[2019-08-09] MEDS: BRINZOLAMIDE 1% OPH SUSP 10 ML BOTTLE BOTH EYES SCH ×2 (12:38→20:12)
[2019-08-09] MEDS: BRIMONIDINE/TIMOLOL OPH SOLN 5 ML BOTTLE BOTH EYES SCH ×2 (12:39→20:12)
[2019-08-09] MEDS: SODIUM HYPOCHLORITE 0.25% IRRIG 473 ML BOTTLE TOP SCH (12:39)
[2019-08-09] MEDS: MAGNESIUM OXIDE 400 MG TABLET PO SCH ×3 (13:09→20:12)
[2019-08-09] MEDS ORDERED: NOREPINEPHRINE 8 MG in SODIUM CHLORIDE 0.9% 242 ML IV PRN (15:32)
[2019-08-09] MEDS ORDERED: SKIN HEALING OINT (AQUAPHOR) 50 GM TUBE TOP PRN (17:10)
[2019-08-09] MEDS: ROSUVASTATIN 20 MG TABLET PO SCH (20:12)
[2019-08-09] MEDS: BIMATOPROST 0.01% OPH SOLN 2.5 ML BOTTLE BOTH EYES SCH (20:12)
[2019-08-10] MEDS: PIPERACILLIN/TAZOBACTAM 3,375 MG in SODIUM CHLORIDE 0.9% 100 ML IV SCH ×3 (02:04→16:23)
[2019-08-10 04:25] LABS: Basophils % 0.2 % (0.0-0.8); Eosinophils # 0.3 10*3/uL (0.0-0.87); Eosinophils % 2.3 % (0.00-10.9); Hematocrit 29.7 VOL% (35.7-47.0); Hemoglobin 8.8 GM/DL (12.0-16.0); Immature Granulocytes % 0.4 %; Immature Granulocytes Absolute 0.04 #; Lymphocytes # 0.6 10*3/uL (1.4-4.0); Lymphocytes % 5.3 % (21.3-54.2); Mean Corpuscular HGB Conc 29.6 GM/DL (32-36); Mean Corpuscular Volume 92.8 FL (87-102); Mean Platelet Volume 10.6 FL (9.6-12.0); Monocytes % 6.7 % (1.7-12.7); Neutrophils % 85.1 % (38.7-73.9); Platelet Count 201 T/CUMM (130-400); Red Cell Distribution Width 14.6 % (9.3-17.3); White Blood Count 10.8 T/CUMM (4-12)
[2019-08-10 04:39] LABS: PT Patient Result 11.3 SECS (9.6-12.2)
[2019-08-10 05:11] LABS: Bilirubin,Total 0.4 MG/DL (0.2-1.0); Calcium 8.2 MG/DL (8.5-10.1); Total Protein 5.7 G/DL (6.4-8.3)
[2019-08-10] MEDS: INSULIN REGULAR 100 UNIT/ML SUBCUT SCH ×4 (07:48→20:19)
[2019-08-10] MEDS: FLUCONAZOLE 100 MG TABLET PO SCH (08:16)
[2019-08-10] MEDS: MAGNESIUM OXIDE 400 MG TABLET PO SCH ×3 (08:16→20:18)
[2019-08-10] MEDS: PANTOPRAZOLE 40 MG TABLET PO SCH (08:16)
[2019-08-10] MEDS: GABAPENTIN 600 MG TABLET PO SCH ×3 (08:16→20:19)
[2019-08-10] MEDS: BRIMONIDINE/TIMOLOL OPH SOLN 5 ML BOTTLE BOTH EYES SCH (09:43)
[2019-08-10] MEDS: BRIMONIDINE 0.1% OPH SOLN 5 ML BOTTLE BOTH EYES SCH (09:43)
[2019-08-10] MEDS: BRINZOLAMIDE 1% OPH SUSP 10 ML BOTTLE BOTH EYES SCH ×2 (09:43→20:19)
[2019-08-10] MEDS: SPIRONOLACTONE 50 MG TABLET PO SCH (10:44)
[2019-08-10] MEDS: SODIUM HYPOCHLORITE 0.25% IRRIG 473 ML BOTTLE TOP SCH (16:00)
[2019-08-10] MEDS ORDERED: WARFARIN 5 MG TABLET PO ONE (16:54)
[2019-08-10] MEDS: WARFARIN 10 MG TABLET PO SCH (17:33)
[2019-08-10] MEDS: ROSUVASTATIN 20 MG TABLET PO SCH (20:19)
[2019-08-10] MEDS: BIMATOPROST 0.01% OPH SOLN 2.5 ML BOTTLE BOTH EYES SCH (20:19)
[2019-08-11] MEDS: PIPERACILLIN/TAZOBACTAM 3,375 MG in SODIUM CHLORIDE 0.9% 100 ML IV SCH ×3 (00:02→17:36)
[2019-08-11 04:56] LABS: Basophils % 0.4 % (0.0-0.8); Eosinophils # 0.2 10*3/uL (0.0-0.87); Eosinophils % 2.7 % (0.00-10.9); Hematocrit 29.9 VOL% (35.7-47.0); Hemoglobin 8.8 GM/DL (12.0-16.0); Immature Granulocytes % 0.5 %; Immature Granulocytes Absolute 0.04 #; Lymphocytes # 1.1 10*3/uL (1.4-4.0); Lymphocytes % 14.8 % (21.3-54.2); Mean Corpuscular HGB Conc 29.4 GM/DL (32-36); Mean Corpuscular Volume 92.6 FL (87-102); Mean Platelet Volume 10.8 FL (9.6-12.0); Monocytes % 11.4 % (1.7-12.7); Neutrophils % 70.2 % (38.7-73.9); Platelet Count 223 T/CUMM (130-400); Red Blood Count 3.23 MC/CUMM (3.8-5.5); Red Cell Distribution Width 14.7 % (9.3-17.3); White Blood Count 7.4 T/CUMM (4-12)
[2019-08-11 04:59] LABS: INR 1.1; PT Patient Result 11.4 SECS (9.6-12.2)
[2019-08-11 05:19] LABS: Bilirubin,Total 0.6 MG/DL (0.2-1.0); Calcium 8.3 MG/DL (8.5-10.1)
[2019-08-11] MEDS: INSULIN REGULAR 100 UNIT/ML SUBCUT SCH ×4 (07:33→23:10)
[2019-08-11] MEDS ORDERED: WARFARIN 5 MG TABLET PO ONE (07:43)
[2019-08-11] MEDS: CIPROFLOXACIN INJ 400 MG in PREMIX 1 EACH IV SCH ×2 (09:43→20:28)
[2019-08-11] MEDS: GABAPENTIN 600 MG TABLET PO SCH ×3 (09:49→21:54)
[2019-08-11] MEDS: FLUCONAZOLE 100 MG TABLET PO SCH (09:49)
[2019-08-11] MEDS: SPIRONOLACTONE 50 MG TABLET PO SCH (09:49)
[2019-08-11] MEDS: metOLazone 5 MG TABLET PO SCH (09:49)
[2019-08-11] MEDS: MAGNESIUM OXIDE 400 MG TABLET PO SCH ×3 (09:49→21:53)
[2019-08-11] MEDS: PANTOPRAZOLE 40 MG TABLET PO SCH (09:49)
[2019-08-11] MEDS: SODIUM HYPOCHLORITE 0.25% IRRIG 473 ML BOTTLE TOP SCH (09:50)
[2019-08-11] MEDS: BRINZOLAMIDE 1% OPH SUSP 10 ML BOTTLE BOTH EYES SCH ×2 (09:50→21:54)
[2019-08-11] MEDS ORDERED: GENTAMICIN INJ 500 MG in SODIUM CHLORIDE 0.9% 100 ML IV SCH (17:30)
[2019-08-11] MEDS: WARFARIN 7.5 MG TABLET PO SCH (18:26)
[2019-08-11] MEDS: ROSUVASTATIN 20 MG TABLET PO SCH (21:53)
[2019-08-11] MEDS: BIMATOPROST 0.01% OPH SOLN 2.5 ML BOTTLE BOTH EYES SCH (21:55)
[2019-08-12 04:54] LABS: Basophils % 0.5 % (0.0-0.8); Eosinophils # 0.4 10*3/uL (0.0-0.87); Eosinophils % 4.9 % (0.00-10.9); Hemoglobin 8.8 GM/DL (12.0-16.0); Immature Granulocytes % 0.7 %; Immature Granulocytes Absolute 0.06 #; Lymphocytes # 1.4 10*3/uL (1.4-4.0); Lymphocytes % 15.7 % (21.3-54.2); Mean Corpuscular HGB Conc 29.3 GM/DL (32-36); Mean Platelet Volume 10.3 FL (9.6-12.0); Neutrophils % 65.2 % (38.7-73.9); Platelet Count 244 T/CUMM (130-400); Red Blood Count 3.26 MC/CUMM (3.8-5.5); Red Cell Distribution Width 14.9 % (9.3-17.3); White Blood Count 8.8 T/CUMM (4-12)
[2019-08-12 05:00] LABS: INR 1.7; PT Patient Result 18.5 SECS (9.6-12.2)
[2019-08-12 05:12] LABS: Calcium 8.3 MG/DL (8.5-10.1); Osmolality,Calculated 285.3 MOS/KG (273-304)
[2019-08-12] MEDS: FLUCONAZOLE 100 MG TABLET PO SCH (09:18)
[2019-08-12] MEDS: GABAPENTIN 600 MG TABLET PO SCH ×3 (09:18→21:52)
[2019-08-12] MEDS: MAGNESIUM OXIDE 400 MG TABLET PO SCH ×3 (09:18→21:52)
[2019-08-12] MEDS: SPIRONOLACTONE 50 MG TABLET PO SCH (09:18)
[2019-08-12] MEDS: PANTOPRAZOLE 40 MG TABLET PO SCH (09:18)
[2019-08-12] MEDS: cefTRIAXone 1,000 MG in SYRINGE 1 EACH IV SCH (09:29)
[2019-08-12] MEDS: BRINZOLAMIDE 1% OPH SUSP 10 ML BOTTLE BOTH EYES SCH ×2 (09:29→21:51)
[2019-08-12] MEDS: SODIUM HYPOCHLORITE 0.25% IRRIG 473 ML BOTTLE TOP SCH (09:29)
[2019-08-12] MEDS: INSULIN REGULAR 100 UNIT/ML SUBCUT SCH ×4 (09:31→21:53)
[2019-08-12] MEDS: CIPROFLOXACIN INJ 400 MG in PREMIX 1 EACH IV SCH (10:13)
[2019-08-12] MEDS ORDERED: BISACODYL 10 MG SUPP RECTAL ONE (16:20)
[2019-08-12] MEDS ORDERED: MAGNESIUM HYDROXIDE SUSP 30 ML UDCUP PO ONE (16:20)
[2019-08-12] MEDS: WARFARIN 10 MG TABLET PO SCH (18:09)
[2019-08-12] MEDS: BIMATOPROST 0.01% OPH SOLN 2.5 ML BOTTLE BOTH EYES SCH (21:51)
[2019-08-12] MEDS: ROSUVASTATIN 20 MG TABLET PO SCH (21:52)
[2019-08-13] MEDS: INSULIN REGULAR 100 UNIT/ML SUBCUT SCH ×4 (07:40→21:03)
[2019-08-13] MEDS: SPIRONOLACTONE 50 MG TABLET PO SCH (09:31)
[2019-08-13] MEDS: PANTOPRAZOLE 40 MG TABLET PO SCH (09:32)
[2019-08-13] MEDS: SODIUM HYPOCHLORITE 0.25% IRRIG 473 ML BOTTLE TOP SCH (09:32)
[2019-08-13] MEDS: BRINZOLAMIDE 1% OPH SUSP 10 ML BOTTLE BOTH EYES SCH ×2 (09:32→21:04)
[2019-08-13] MEDS: MAGNESIUM OXIDE 400 MG TABLET PO SCH ×3 (09:32→21:03)
[2019-08-13] MEDS: metOLazone 5 MG TABLET PO SCH (09:32)
[2019-08-13] MEDS: GABAPENTIN 600 MG TABLET PO SCH ×3 (09:32→21:03)
[2019-08-13] MEDS: FLUCONAZOLE 100 MG TABLET PO SCH (09:32)
[2019-08-13] MEDS: cefTRIAXone 1,000 MG in SYRINGE 1 EACH IV SCH (09:33)
[2019-08-13] MEDS: WARFARIN 7.5 MG TABLET PO SCH (17:56)
[2019-08-13] MEDS: ROSUVASTATIN 20 MG TABLET PO SCH (21:03)
[2019-08-13] MEDS: BIMATOPROST 0.01% OPH SOLN 2.5 ML BOTTLE BOTH EYES SCH (21:04)
[2019-08-14] MEDS: INSULIN REGULAR 100 UNIT/ML SUBCUT SCH ×2 (07:27→11:42)
[2019-08-14 07:34] VITALS: BP 104/49
[2019-08-14] MEDS: BRINZOLAMIDE 1% OPH SUSP 10 ML BOTTLE BOTH EYES SCH (09:18)
[2019-08-14] MEDS: cefTRIAXone 1,000 MG in SYRINGE 1 EACH IV SCH (09:18)
[2019-08-14] MEDS: GABAPENTIN 600 MG TABLET PO SCH (09:19)
[2019-08-14] MEDS: PANTOPRAZOLE 40 MG TABLET PO SCH (09:19)
[2019-08-14] MEDS: SPIRONOLACTONE 50 MG TABLET PO SCH (09:19)
[2019-08-14] MEDS: FLUCONAZOLE 100 MG TABLET PO SCH (09:19)
[2019-08-14] MEDS: MAGNESIUM OXIDE 400 MG TABLET PO SCH (09:19)
[2019-08-14] MEDS: SODIUM HYPOCHLORITE 0.25% IRRIG 473 ML BOTTLE TOP SCH (09:19)
== END 2019-08-14 13:16 | disposition home health service (06) | DRG 698 ==
LOC: EDUNIT# → EDBD → N.ED 00:01 → N.EDINP 03:00 → SUATTDRO 03:00 → N.3E 03:48 → N.ICU 04:27 → N.3E 08-11 16:51
PROVIDERS: ADMIT Family Medicine; ATTEND Internal Medicine

== ENCOUNTER 2020-01-01 14:43 | Inpatient (IN) ==
[2020-01-01] MEDS ORDERED: PIPERACILLIN/TAZOBACTAM 3,375 MG in SODIUM CHLORIDE 0.9% 100 ML IV STA (15:17)
[2020-01-01 16:22] LABS: Apearance,Urine CLOUDY (Clear); Bilirubin,Urine Negative (Negative); Blood, Urine Large mg/dL (Negative); Glucose,Urine (UA) Negative (Negative); Ketones,Urine Negative (Negative); Mucus,Urine Occasional /LPF (Occasional); Nitrite,Urine Negative (Negative); Protein,Urine 30 MG/DL; RBC,Urine 1363 /HPF (0-4); Squamous Epithelial Cell,Urine Moderate /HPF (0-10); Urine Color Yellow (Yellow); Urine Specific Gravity 1.017 (1.001-1.035); WBC,Urine 161 /HPF (0-6)
[2020-01-01 16:31] LABS: Basophils % 0.4 % (0.0-0.8); Eosinophils # 0.5 10*3/uL (0.0-0.87); Eosinophils % 4.9 % (0.00-10.9); Hematocrit 36.9 VOL% (35.7-47.0); Hemoglobin 10.8 GM/DL (12.0-16.0); Immature Granulocytes % 0.4 %; Immature Granulocytes Absolute 0.04 #; Lymphocytes # 1.7 10*3/uL (1.4-4.0); Mean Corpuscular HGB Conc 29.3 GM/DL (32-36); Mean Corpuscular Volume 92.5 FL (87-102); Mean Platelet Volume 9.6 FL (9.6-12.0); Monocytes % 6.9 % (1.7-12.7); Neutrophils % 70.4 % (38.7-73.9); Platelet Count 353 T/CUMM (130-400); Red Blood Count 3.99 MC/CUMM (3.8-5.5); Red Cell Distribution Width 13.8 % (9.3-17.3); White Blood Count 9.7 T/CUMM (4-12)
[2020-01-01 16:34] LABS: Alanine Aminotransferase 11 U/L (13-56); Albumin 2.6 G/DL (3.4-5.0); Alkaline Phosphatase 80 U/L (45-117); Aspartate Amino Transferase 10 U/L (0-37); Bilirubin,Total < 0.39 MG/DL (0.2-1.0); Blood Urea Nitrogen 14 MG/DL (7-18); Calcium 9.3 MG/DL (8.5-10.1); Glucose 117 MG/DL (74-106); Osmolality,Calculated 278.5 MOS/KG (273-304); Total Protein 7.3 G/DL (6.4-8.3)
[2020-01-01 16:35] LABS: Estimated Glom Filtration Rate 0 ML/MIN
[2020-01-01] MEDS ORDERED: GLUCAGON 1 MG VIAL IM PRN (17:42)
[2020-01-01] MEDS ORDERED: ONDANSETRON 4 MG/2 ML VIAL IV PRN (17:42)
[2020-01-01] MEDS ORDERED: DEXTROSE 10% 250 ML BAG IV PRN (17:42)
[2020-01-01 17:58] LABS: INR 1.4; PT Patient Result 14.7 SECS (9.6-12.2)
[2020-01-01] MEDS: INSULIN REGULAR 100 UNIT/ML SUBCUT SCH (20:52)
[2020-01-02] MEDS: PIPERACILLIN/TAZOBACTAM 3,375 MG in SODIUM CHLORIDE 0.9% 100 ML IV SCH ×3 (00:55→16:37)
[2020-01-02 04:54] LABS: Basophils # 0.1 10*3/uL (0.0-0.2); Basophils % 0.7 % (0.0-0.8); Eosinophils # 0.5 10*3/uL (0.0-0.87); Eosinophils % 5.5 % (0.00-10.9); Hematocrit 33.3 VOL% (35.7-47.0); Hemoglobin 9.9 GM/DL (12.0-16.0); Immature Granulocytes % 0.2 %; Immature Granulocytes Absolute 0.02 #; Lymphocytes # 1.8 10*3/uL (1.4-4.0); Lymphocytes % 21.3 % (21.3-54.2); Mean Corpuscular HGB Conc 29.7 GM/DL (32-36); Mean Corpuscular Volume 91.5 FL (87-102); Mean Platelet Volume 9.9 FL (9.6-12.0); Monocytes % 7.2 % (1.7-12.7); Neutrophils % 65.1 % (38.7-73.9); Platelet Count 340 T/CUMM (130-400); Red Blood Count 3.64 MC/CUMM (3.8-5.5); Red Cell Distribution Width 13.8 % (9.3-17.3); White Blood Count 8.5 T/CUMM (4-12)
[2020-01-02 04:58] LABS: INR 1.3; PT Patient Result 14.6 SECS (9.6-12.2)
[2020-01-02 05:11] LABS: Osmolality,Calculated 280.3 MOS/KG (273-304)
[2020-01-02] MEDS: INSULIN REGULAR 100 UNIT/ML SUBCUT SCH ×4 (08:49→21:04)
[2020-01-02] MEDS: PANTOPRAZOLE 40 MG TABLET PO SCH (10:41)
[2020-01-02] MEDS ORDERED: BISACODYL 5 MG TABLET PO ONE (15:11)
[2020-01-02] MEDS: GABAPENTIN 300 MG CAPSULE PO SCH ×2 (16:39→21:04)
[2020-01-02] MEDS: POLYETHYLENE GLYCOL POWDER 17 GM PACK PO PRN (16:47)
[2020-01-02] MEDS: SKIN HEALING OINT (AQUAPHOR) 50 GM TUBE TOP PRN (16:47)
[2020-01-02] MEDS ORDERED: MORPHINE 4 MG/1 ML VIAL ONE (18:37)
[2020-01-02] MEDS: MORPHINE 4 MG/1 ML VIAL IV PRN (18:40)
[2020-01-02] MEDS: WARFARIN 7.5 MG TABLET PO SCH (19:04)
[2020-01-02] MEDS: ROSUVASTATIN 20 MG TABLET PO SCH (21:04)
[2020-01-03] MEDS: PIPERACILLIN/TAZOBACTAM 3,375 MG in SODIUM CHLORIDE 0.9% 100 ML IV SCH ×4 (00:55→23:55)
[2020-01-03 06:09] LABS: Basophils # 0.1 10*3/uL (0.0-0.2); Basophils % 0.6 % (0.0-0.8); Eosinophils # 0.6 10*3/uL (0.0-0.87); Eosinophils % 6.4 % (0.00-10.9); Hematocrit 34.6 VOL% (35.7-47.0); Hemoglobin 10.3 GM/DL (12.0-16.0); Immature Granulocytes % 0.3 %; Immature Granulocytes Absolute 0.03 #; Lymphocytes # 2.1 10*3/uL (1.4-4.0); Mean Corpuscular HGB Conc 29.8 GM/DL (32-36); Mean Corpuscular Volume 92.3 FL (87-102); Mean Platelet Volume 10.1 FL (9.6-12.0); Monocytes % 8.9 % (1.7-12.7); Neutrophils % 59.8 % (38.7-73.9); Platelet Count 310 T/CUMM (130-400); Red Blood Count 3.75 MC/CUMM (3.8-5.5); White Blood Count 8.9 T/CUMM (4-12)
[2020-01-03 06:52] LABS: Calcium 8.6 MG/DL (8.5-10.1); Osmolality,Calculated 282.3 MOS/KG (273-304)
[2020-01-03] MEDS: INSULIN REGULAR 100 UNIT/ML SUBCUT SCH ×4 (09:22→20:29)
[2020-01-03] MEDS: POLYETHYLENE GLYCOL POWDER 17 GM PACK PO PRN (09:39)
[2020-01-03] MEDS: PANTOPRAZOLE 40 MG TABLET PO SCH (09:39)
[2020-01-03] MEDS: GABAPENTIN 300 MG CAPSULE PO SCH ×3 (09:39→20:29)
[2020-01-03] MEDS: MORPHINE 4 MG/1 ML VIAL IV PRN (14:16)
[2020-01-03] MEDS: SKIN HEALING OINT (AQUAPHOR) 50 GM TUBE TOP PRN (14:20)
[2020-01-03] MEDS ORDERED: WARFARIN 10 MG TABLET PO SCH (18:00)
[2020-01-03] MEDS: ROSUVASTATIN 20 MG TABLET PO SCH (20:29)
[2020-01-04 06:44] LABS: INR 1.9; PT Patient Result 20.4 SECS (9.6-12.2)
[2020-01-04] MEDS: INSULIN REGULAR 100 UNIT/ML SUBCUT SCH ×4 (09:59→20:31)
[2020-01-04] MEDS: GABAPENTIN 300 MG CAPSULE PO SCH ×3 (10:00→20:33)
[2020-01-04] MEDS: BISACODYL 10 MG SUPP RECTAL PRN (10:00)
[2020-01-04] MEDS: POLYETHYLENE GLYCOL POWDER 17 GM PACK PO PRN (10:00)
[2020-01-04] MEDS: PIPERACILLIN/TAZOBACTAM 3,375 MG in SODIUM CHLORIDE 0.9% 100 ML IV SCH ×2 (10:00→15:48)
[2020-01-04] MEDS: PANTOPRAZOLE 40 MG TABLET PO SCH (10:00)
[2020-01-04] MEDS: SKIN HEALING OINT (AQUAPHOR) 50 GM TUBE TOP PRN (10:30)
[2020-01-04] MEDS: MORPHINE 4 MG/1 ML VIAL IV PRN (11:03)
[2020-01-04] MEDS: WARFARIN 7.5 MG TABLET PO SCH (19:03)
[2020-01-04] MEDS: ROSUVASTATIN 20 MG TABLET PO SCH (20:32)
[2020-01-05] MEDS: PIPERACILLIN/TAZOBACTAM 3,375 MG in SODIUM CHLORIDE 0.9% 100 ML IV SCH ×4 (00:50→23:55)
[2020-01-05] MEDS: MORPHINE 4 MG/1 ML VIAL IV PRN ×3 (01:02→23:52)
[2020-01-05 06:05] LABS: Calcium 8.3 MG/DL (8.5-10.1); Osmolality,Calculated 286.1 MOS/KG (273-304)
[2020-01-05 06:06] LABS: Basophils % 0.4 % (0.0-0.8); Eosinophils # 0.7 10*3/uL (0.0-0.87); Eosinophils % 7.3 % (0.00-10.9); Hematocrit 30.4 VOL% (35.7-47.0); Hemoglobin 8.9 GM/DL (12.0-16.0); Immature Granulocytes % 0.3 %; Immature Granulocytes Absolute 0.03 #; Lymphocytes # 1.9 10*3/uL (1.4-4.0); Lymphocytes % 20.6 % (21.3-54.2); Mean Corpuscular HGB Conc 29.3 GM/DL (32-36); Mean Corpuscular Volume 92.7 FL (87-102); Mean Platelet Volume 10.1 FL (9.6-12.0); Neutrophils % 65.4 % (38.7-73.9); Platelet Count 316 T/CUMM (130-400); Red Blood Count 3.28 MC/CUMM (3.8-5.5)
[2020-01-05 06:17] LABS: INR 2.5
[2020-01-05 06:18] LABS: Hypochromasia 1+; Ovalocytes Slight; Platelet Estimate Adequate
[2020-01-05 06:20] LABS: PT Patient Result 26.9 SECS (9.6-12.2)
[2020-01-05] MEDS: PANTOPRAZOLE 40 MG TABLET PO SCH (09:16)
[2020-01-05] MEDS: GABAPENTIN 300 MG CAPSULE PO SCH ×3 (09:16→20:11)
[2020-01-05] MEDS: POLYETHYLENE GLYCOL POWDER 17 GM PACK PO PRN (09:16)
[2020-01-05] MEDS: INSULIN REGULAR 100 UNIT/ML SUBCUT SCH ×4 (09:16→20:12)
[2020-01-05] MEDS: WARFARIN 7.5 MG TABLET PO SCH (17:11)
[2020-01-05] MEDS: ROSUVASTATIN 20 MG TABLET PO SCH (20:11)
[2020-01-06 05:33] LABS: Calcium 8.3 MG/DL (8.5-10.1); Osmolality,Calculated 286.1 MOS/KG (273-304)
[2020-01-06 05:44] LABS: INR 3.3
[2020-01-06 05:46] LABS: PT Patient Result 35.6 SECS (9.6-12.2)
[2020-01-06 06:12] LABS: Basophils # 0.1 10*3/uL (0.0-0.2); Basophils % 0.6 % (0.0-0.8); Eosinophils # 0.6 10*3/uL (0.0-0.87); Eosinophils % 7.7 % (0.00-10.9); Hematocrit 31.7 VOL% (35.7-47.0); Immature Granulocytes % 0.4 %; Immature Granulocytes Absolute 0.03 #; Lymphocytes % 25.3 % (21.3-54.2); Mean Corpuscular HGB Conc 28.7 GM/DL (32-36); Mean Corpuscular Volume 94.6 FL (87-102); Mean Platelet Volume 9.9 FL (9.6-12.0); Monocytes % 7.2 % (1.7-12.7); Neutrophils % 58.8 % (38.7-73.9); Platelet Count 295 T/CUMM (130-400); Red Blood Count 3.35 MC/CUMM (3.8-5.5); White Blood Count 8.1 T/CUMM (4-12)
[2020-01-06 06:14] LABS: Hemoglobin 9.1 GM/DL (12.0-16.0)
[2020-01-06 06:27] LABS: Hypochromasia 1+; Ovalocytes Slight; Platelet Estimate Adequate
[2020-01-06] MEDS: PIPERACILLIN/TAZOBACTAM 3,375 MG in SODIUM CHLORIDE 0.9% 100 ML IV SCH ×2 (07:29→17:14)
[2020-01-06] MEDS: MORPHINE 4 MG/1 ML VIAL IV PRN (07:30)
[2020-01-06] MEDS: GABAPENTIN 300 MG CAPSULE PO SCH ×4 (07:30→20:42)
[2020-01-06] MEDS: PANTOPRAZOLE 40 MG TABLET PO SCH ×2 (07:30→08:58)
[2020-01-06] MEDS: INSULIN REGULAR 100 UNIT/ML SUBCUT SCH ×4 (07:36→21:35)
[2020-01-06] MEDS: SKIN HEALING OINT (AQUAPHOR) 50 GM TUBE TOP PRN (13:22)
[2020-01-06] MEDS: ROSUVASTATIN 20 MG TABLET PO SCH (20:42)
[2020-01-07] MEDS: PIPERACILLIN/TAZOBACTAM 3,375 MG in SODIUM CHLORIDE 0.9% 100 ML IV SCH ×3 (00:35→15:49)
[2020-01-07] MEDS: MORPHINE 4 MG/1 ML VIAL IV PRN ×3 (00:40→15:47)
[2020-01-07 06:45] LABS: Calcium 8.3 MG/DL (8.5-10.1); Osmolality,Calculated 284.5 MOS/KG (273-304)
[2020-01-07 06:59] LABS: INR 3.3
[2020-01-07 07:10] LABS: Basophils % 0.5 % (0.0-0.8); Eosinophils # 0.5 10*3/uL (0.0-0.87); Eosinophils % 6.5 % (0.00-10.9); Hematocrit 31.5 VOL% (35.7-47.0); Immature Granulocytes % 0.4 %; Immature Granulocytes Absolute 0.03 #; Lymphocytes # 1.6 10*3/uL (1.4-4.0); Mean Corpuscular HGB Conc 28.6 GM/DL (32-36); Monocytes % 5.4 % (1.7-12.7); Neutrophils % 68.2 % (38.7-73.9); Platelet Count 329 T/CUMM (130-400); Red Blood Count 3.35 MC/CUMM (3.8-5.5); Red Cell Distribution Width 14.1 % (9.3-17.3); White Blood Count 8.4 T/CUMM (4-12)
[2020-01-07 07:20] LABS: Hypochromasia 1+
[2020-01-07 07:21] LABS: Microcytosis Slight; Ovalocytes Slight; Platelet Estimate Normal
[2020-01-07] MEDS: INSULIN REGULAR 100 UNIT/ML SUBCUT SCH ×4 (07:53→21:12)
[2020-01-07] MEDS: POLYETHYLENE GLYCOL POWDER 17 GM PACK PO PRN (10:14)
[2020-01-07] MEDS: GABAPENTIN 300 MG CAPSULE PO SCH ×3 (10:14→21:11)
[2020-01-07] MEDS: PANTOPRAZOLE 40 MG TABLET PO SCH (10:14)
[2020-01-07] MEDS: WARFARIN 7.5 MG TABLET PO SCH (18:10)
[2020-01-07] MEDS: oxyCODONE IR 5 MG TABLET PO PRN (18:13)
[2020-01-07] MEDS: ACETAMINOPHEN 500 MG TABLET PO SCH (21:10)
[2020-01-07] MEDS: ROSUVASTATIN 20 MG TABLET PO SCH (21:11)
[2020-01-08] MEDS: PIPERACILLIN/TAZOBACTAM 3,375 MG in SODIUM CHLORIDE 0.9% 100 ML IV SCH ×3 (00:21→15:24)
[2020-01-08] MEDS: ACETAMINOPHEN 500 MG TABLET PO SCH ×3 (05:21→22:25)
[2020-01-08 05:43] LABS: INR 2.5
[2020-01-08 05:50] LABS: Calcium 8.5 MG/DL (8.5-10.1); Osmolality,Calculated 286.4 MOS/KG (273-304)
[2020-01-08 06:07] LABS: PT Patient Result 27.2 SECS (9.6-12.2)
[2020-01-08] MEDS: INSULIN REGULAR 100 UNIT/ML SUBCUT SCH ×4 (09:35→22:26)
[2020-01-08] MEDS: POLYETHYLENE GLYCOL POWDER 17 GM PACK PO PRN (09:36)
[2020-01-08] MEDS: GABAPENTIN 300 MG CAPSULE PO SCH ×3 (09:38→22:26)
[2020-01-08] MEDS: BISACODYL 10 MG SUPP RECTAL PRN (09:38)
[2020-01-08] MEDS: PANTOPRAZOLE 40 MG TABLET PO SCH (09:39)
[2020-01-08] MEDS: oxyCODONE IR 5 MG TABLET PO PRN (09:39)
[2020-01-08] MEDS: MORPHINE 4 MG/1 ML VIAL IV PRN (17:05)
[2020-01-08] MEDS: WARFARIN 7.5 MG TABLET PO SCH (18:55)
[2020-01-08] MEDS: ROSUVASTATIN 20 MG TABLET PO SCH (22:26)
[2020-01-09] MEDS: PIPERACILLIN/TAZOBACTAM 3,375 MG in SODIUM CHLORIDE 0.9% 100 ML IV SCH ×2 (01:04→09:18)
[2020-01-09] MEDS: ACETAMINOPHEN 500 MG TABLET PO SCH (05:43)
[2020-01-09 06:43] LABS: Basophils % 0.5 % (0.0-0.8); Eosinophils # 0.6 10*3/uL (0.0-0.87); Eosinophils % 6.4 % (0.00-10.9); Hematocrit 29.8 VOL% (35.7-47.0); Hemoglobin 8.9 GM/DL (12.0-16.0); Immature Granulocytes % 0.3 %; Immature Granulocytes Absolute 0.03 #; Lymphocytes # 1.7 10*3/uL (1.4-4.0); Lymphocytes % 19.9 % (21.3-54.2); Mean Corpuscular HGB Conc 29.9 GM/DL (32-36); Mean Corpuscular Volume 91.1 FL (87-102); Mean Platelet Volume 10.1 FL (9.6-12.0); Monocytes % 7.5 % (1.7-12.7); Neutrophils % 65.4 % (38.7-73.9); Platelet Count 344 T/CUMM (130-400); Red Blood Count 3.27 MC/CUMM (3.8-5.5); Red Cell Distribution Width 14.2 % (9.3-17.3); White Blood Count 8.8 T/CUMM (4-12)
[2020-01-09 06:55] LABS: Calcium 8.2 MG/DL (8.5-10.1); Osmolality,Calculated 290.1 MOS/KG (273-304)
[2020-01-09 07:02] LABS: INR 3.2
[2020-01-09] MEDS: PANTOPRAZOLE 40 MG TABLET PO SCH (09:18)
[2020-01-09] MEDS: GABAPENTIN 300 MG CAPSULE PO SCH (09:18)
[2020-01-09] MEDS: oxyCODONE IR 5 MG TABLET PO PRN ×2 (09:18→14:32)
[2020-01-09] MEDS: INSULIN REGULAR 100 UNIT/ML SUBCUT SCH ×2 (09:19→13:44)
[2020-01-09 12:09] VITALS: BP 134/69
[2020-01-09] MEDS ORDERED: WARFARIN 5 MG TABLET PO SCH (18:00)
[2020-01-10] MEDS ORDERED: WARFARIN 7.5 MG TABLET PO SCH (18:00)
== END 2020-01-09 16:10 | disposition home health service (06) | DRG 698 ==
LOC: EDBD → EDUNIT# → N.EDINP 14:43 → N.ED 14:43 → N.5E 19:40 → SUATTDRO 01-02 14:59
PROVIDERS: ADMIT Internal Medicine; ATTEND Internal Medicine

== ENCOUNTER 2020-05-26 18:59 | Inpatient (IN) ==
[2020-05-26] MEDS ORDERED: SODIUM CHLORIDE 0.9% 500 ML IV STA (19:50)
[2020-05-26] MEDS ORDERED: KETOROLAC 30 MG/1 ML VIAL IV STA (19:50)
[2020-05-26 20:01] LABS: Basophils % 0.4 % (0.0-0.8); Eosinophils # 0.3 10*3/uL (0.0-0.87); Eosinophils % 3.7 % (0.00-10.9); Hematocrit 35.4 VOL% (35.7-47.0); Hemoglobin 10.4 GM/DL (12.0-16.0); Immature Granulocytes % 0.4 %; Immature Granulocytes Absolute 0.04 #; Lymphocytes # 1.2 10*3/uL (1.4-4.0); Lymphocytes % 12.6 % (21.3-54.2); Mean Corpuscular HGB Conc 29.4 GM/DL (32-36); Mean Corpuscular Volume 92.4 FL (87-102); Mean Platelet Volume 9.9 FL (9.6-12.0); Neutrophils % 75.9 % (38.7-73.9); Platelet Count 292 T/CUMM (130-400); Red Blood Count 3.83 MC/CUMM (3.8-5.5); Red Cell Distribution Width 14.9 % (9.3-17.3); White Blood Count 9.1 T/CUMM (4-12)
[2020-05-26 20:11] LABS: Amorphous Crystals,Urine Occasional /HPF (Few); Apearance,Urine CLOUDY (Clear); Bacteria,Urine Many /HPF (Few); Bilirubin,Urine Negative (Negative); Blood, Urine Large mg/dL (Negative); Glucose,Urine (UA) Negative (Negative); Ketones,Urine Negative (Negative); Nitrite,Urine Negative (Negative); Protein,Urine 30 MG/DL; RBC,Urine 114 /HPF (0-4); Squamous Epithelial Cell,Urine Occasional /HPF (0-10); Urine Color Yellow (Yellow); Urine Specific Gravity 1.008 (1.001-1.035); Urine Urobilinogen < 2.0 EU/DL (0.2-1.0); WBC,Urine 8 /HPF (0-6)
[2020-05-26 20:23] LABS: Alanine Aminotransferase 10 U/L (13-56); Albumin 2.9 G/DL (3.4-5.0); Alkaline Phosphatase 75 U/L (45-117); Aspartate Amino Transferase 12 U/L (0-37); Bilirubin,Total < 0.39 MG/DL (0.2-1.0); Blood Urea Nitrogen 20 MG/DL (7-18); Calcium 9.2 MG/DL (8.5-10.1); Estimated Glom Filtration Rate 93 ML/MIN; Glucose 127 MG/DL (74-106); Osmolality,Calculated 285.3 MOS/KG (273-304); Total Protein 7.4 G/DL (6.4-8.3)
[2020-05-26] MEDS ORDERED: cefTRIAXone 1,000 MG in SODIUM CHLORIDE 0.9% 100 ML IV STA (20:31)
[2020-05-26] MEDS ORDERED: ACETAMINOPHEN 325 MG TABLET PO PRN (21:58)
[2020-05-26] MEDS ORDERED: DEXTROSE 50% 25 GM/50 ML VIAL IV PRN (21:58)
[2020-05-26] MEDS ORDERED: GLUCAGON 1 MG VIAL IM PRN (21:58)
[2020-05-26] MEDS ORDERED: ONDANSETRON 4 MG/2 ML VIAL IV PRN (21:58)
[2020-05-26] MEDS ORDERED: DOCUSATE SODIUM 100 MG CAPSULE PO PRN (21:58)
[2020-05-26] MEDS ORDERED: SODIUM CHLORIDE 0.9% 1,000 ML IV SCH (22:00)
[2020-05-26] MEDS ORDERED: DOCUSATE/SENNA 50-8.6 MG TABLET PO PRN (22:33)
[2020-05-26] MEDS: PIPERACILLIN/TAZOBACTAM 3,375 MG in SODIUM CHLORIDE 0.9% 100 ML IV SCH (23:50)
[2020-05-27] MEDS ORDERED: VANCOMYCIN INJ 2,000 MG in SODIUM CHLORIDE 0.9% 500 ML IV ONE
[2020-05-27 06:23] LABS: Basophils % 0.5 % (0.0-0.8); Eosinophils # 0.4 10*3/uL (0.0-0.87); Eosinophils % 4.5 % (0.00-10.9); Hematocrit 32.6 VOL% (35.7-47.0); Hemoglobin 9.7 GM/DL (12.0-16.0); Immature Granulocytes % 0.4 %; Immature Granulocytes Absolute 0.03 #; Lymphocytes # 1.9 10*3/uL (1.4-4.0); Lymphocytes % 24.9 % (21.3-54.2); Mean Corpuscular HGB Conc 29.8 GM/DL (32-36); Mean Corpuscular Volume 92.9 FL (87-102); Mean Platelet Volume 10.5 FL (9.6-12.0); Monocytes % 8.6 % (1.7-12.7); Neutrophils % 61.1 % (38.7-73.9); Platelet Count 262 T/CUMM (130-400); Red Blood Count 3.51 MC/CUMM (3.8-5.5); White Blood Count 7.8 T/CUMM (4-12)
[2020-05-27 06:40] LABS: Calcium 8.8 MG/DL (8.5-10.1); Osmolality,Calculated 281.4 MOS/KG (273-304)
[2020-05-27] MEDS: INSULIN LISPRO 100 UNIT/ML SUBCUT SCH ×4 (08:33→21:01)
[2020-05-27] MEDS ORDERED: Linaclotide [Linzess] 72 MCG PO SCH (09:00)
[2020-05-27] MEDS: hydroCHLOROthiazide 25 MG TABLET PO SCH (09:42)
[2020-05-27] MEDS: MAGNESIUM OXIDE 400 MG TABLET PO SCH ×3 (09:42→20:59)
[2020-05-27] MEDS: GABAPENTIN 600 MG TABLET PO SCH ×3 (09:42→20:59)
[2020-05-27] MEDS: PIPERACILLIN/TAZOBACTAM 3,375 MG in SODIUM CHLORIDE 0.9% 100 ML IV SCH ×2 (09:42→16:27)
[2020-05-27] MEDS: METHENAMINE HIPPURATE 1 GM TABLET PO SCH ×2 (09:42→20:59)
[2020-05-27] MEDS: PANTOPRAZOLE 40 MG TABLET PO SCH (09:42)
[2020-05-27] MEDS: APIXABAN 2.5 MG TABLET PO SCH ×2 (09:42→20:59)
[2020-05-27] MEDS: DORZOLAMIDE/TIMOLOL OPH SOLN 10 ML BOTTLE BOTH EYES SCH ×2 (09:53→21:01)
[2020-05-27] MEDS: NYSTATIN POWDER 15 GM BOTTLE TOP SCH ×3 (09:53→21:01)
[2020-05-27] MEDS ORDERED: TUBERCULIN SKIN TEST 0.1 ML SYRINGE INTRADERM ONE (11:31)
[2020-05-27] MEDS ORDERED: VANCOMYCIN INJ 1,250 MG in SODIUM CHLORIDE 0.9% 250 ML IV SCH (13:00)
[2020-05-27] MEDS: ROSUVASTATIN 20 MG TABLET PO SCH (20:59)
[2020-05-27] MEDS ORDERED: OLOPATADINE BOTH EYES SCH (21:00)
[2020-05-28] MEDS: PIPERACILLIN/TAZOBACTAM 3,375 MG in SODIUM CHLORIDE 0.9% 100 ML IV SCH ×3 (01:10→16:20)
[2020-05-28 05:50] LABS: Basophils # 0.1 10*3/uL (0.0-0.2); Basophils % 0.8 % (0.0-0.8); Eosinophils # 0.5 10*3/uL (0.0-0.87); Eosinophils % 8.5 % (0.00-10.9); Hemoglobin 9.2 GM/DL (12.0-16.0); Immature Granulocytes % 0.3 %; Immature Granulocytes Absolute 0.02 #; Lymphocytes # 1.8 10*3/uL (1.4-4.0); Lymphocytes % 28.2 % (21.3-54.2); Mean Corpuscular HGB Conc 30.7 GM/DL (32-36); Mean Corpuscular Volume 92.3 FL (87-102); Mean Platelet Volume 10.4 FL (9.6-12.0); Monocytes % 7.3 % (1.7-12.7); Neutrophils % 54.9 % (38.7-73.9); Platelet Count 229 T/CUMM (130-400); Red Blood Count 3.25 MC/CUMM (3.8-5.5); Red Cell Distribution Width 14.9 % (9.3-17.3); White Blood Count 6.2 T/CUMM (4-12)
[2020-05-28] MEDS: INSULIN LISPRO 100 UNIT/ML SUBCUT SCH ×4 (09:14→20:45)
[2020-05-28] MEDS: MAGNESIUM OXIDE 400 MG TABLET PO SCH ×3 (09:20→20:45)
[2020-05-28] MEDS: PANTOPRAZOLE 40 MG TABLET PO SCH (09:20)
[2020-05-28] MEDS: GABAPENTIN 600 MG TABLET PO SCH ×3 (09:20→20:45)
[2020-05-28] MEDS: APIXABAN 2.5 MG TABLET PO SCH ×2 (09:20→20:45)
[2020-05-28] MEDS: hydroCHLOROthiazide 25 MG TABLET PO SCH (09:20)
[2020-05-28] MEDS: METHENAMINE HIPPURATE 1 GM TABLET PO SCH ×2 (09:20→20:44)
[2020-05-28] MEDS: DORZOLAMIDE/TIMOLOL OPH SOLN 10 ML BOTTLE BOTH EYES SCH ×2 (09:21→20:45)
[2020-05-28] MEDS: NYSTATIN POWDER 15 GM BOTTLE TOP SCH ×3 (09:21→20:45)
[2020-05-28] MEDS ORDERED: MAGNESIUM CITRATE 300 ML BOTTLE PO ONE (09:33)
[2020-05-28] MEDS ORDERED: BISACODYL 5 MG TABLET PO ONE (09:33)
[2020-05-28] MEDS: ROSUVASTATIN 20 MG TABLET PO SCH (20:45)
[2020-05-29] MEDS: PIPERACILLIN/TAZOBACTAM 3,375 MG in SODIUM CHLORIDE 0.9% 100 ML IV SCH ×3 (00:36→16:55)
[2020-05-29] MEDS: INSULIN LISPRO 100 UNIT/ML SUBCUT SCH ×4 (08:04→20:15)
[2020-05-29] MEDS: NYSTATIN POWDER 15 GM BOTTLE TOP SCH ×3 (08:09→20:39)
[2020-05-29] MEDS: PANTOPRAZOLE 40 MG TABLET PO SCH (08:09)
[2020-05-29] MEDS: DORZOLAMIDE/TIMOLOL OPH SOLN 10 ML BOTTLE BOTH EYES SCH ×2 (08:09→20:39)
[2020-05-29] MEDS: METHENAMINE HIPPURATE 1 GM TABLET PO SCH ×2 (08:09→20:39)
[2020-05-29] MEDS: MAGNESIUM OXIDE 400 MG TABLET PO SCH ×3 (08:09→20:39)
[2020-05-29] MEDS: hydroCHLOROthiazide 25 MG TABLET PO SCH (08:09)
[2020-05-29] MEDS: GABAPENTIN 600 MG TABLET PO SCH ×3 (08:09→20:39)
[2020-05-29] MEDS: APIXABAN 2.5 MG TABLET PO SCH ×2 (08:10→20:39)
[2020-05-29] MEDS ORDERED: BISACODYL 5 MG TABLET PO ONE (13:32)
[2020-05-29] MEDS: ROSUVASTATIN 20 MG TABLET PO SCH (20:39)
[2020-05-30] MEDS: PIPERACILLIN/TAZOBACTAM 3,375 MG in SODIUM CHLORIDE 0.9% 100 ML IV SCH ×2 (00:53→08:35)
[2020-05-30] MEDS: NYSTATIN POWDER 15 GM BOTTLE TOP SCH (08:38)
[2020-05-30] MEDS: DORZOLAMIDE/TIMOLOL OPH SOLN 10 ML BOTTLE BOTH EYES SCH (08:38)
[2020-05-30] MEDS: hydroCHLOROthiazide 25 MG TABLET PO SCH (08:39)
[2020-05-30] MEDS: GABAPENTIN 600 MG TABLET PO SCH (08:39)
[2020-05-30] MEDS: PANTOPRAZOLE 40 MG TABLET PO SCH (08:39)
[2020-05-30] MEDS: METHENAMINE HIPPURATE 1 GM TABLET PO SCH (08:39)
[2020-05-30] MEDS: MAGNESIUM OXIDE 400 MG TABLET PO SCH (08:39)
[2020-05-30] MEDS: APIXABAN 2.5 MG TABLET PO SCH (08:39)
[2020-05-30] MEDS: INSULIN LISPRO 100 UNIT/ML SUBCUT SCH ×2 (08:44→12:42)
[2020-05-30] MEDS ORDERED: MAGNESIUM CITRATE 300 ML BOTTLE PO ONE (10:31)
[2020-05-30 12:13] VITALS: BP 110/59
== END 2020-05-30 15:05 | disposition home health service (06) | DRG 689 ==
LOC: EDBD → EDUNIT# → N.ED 18:59 → N.EDINP 21:06 → N.3E 22:07
PROVIDERS: ADMIT Internal Medicine; ATTEND Internal Medicine

== ENCOUNTER 2021-05-04 10:45 | Observation (INO) ==
[2021-05-04] MEDS ORDERED: VANCOMYCIN INJ 1,000 MG in SODIUM CHLORIDE 0.9% 250 ML IV STA (11:13)
[2021-05-04] MEDS ORDERED: SODIUM CHLORIDE 0.9% 1,000 ML IV STA (11:13)
[2021-05-04 11:33] LABS: Basophils % 0.3 % (0.0-0.8); Eosinophils # 0.4 10*3/uL (0.0-0.87); Eosinophils % 3.4 % (0.00-10.9); Hematocrit 31.5 VOL% (35.7-47.0); Hemoglobin 9.6 GM/DL (12.0-16.0); Immature Granulocytes % 0.5 %; Immature Granulocytes Absolute 0.07 #; Lymphocytes # 1.3 10*3/uL (1.4-4.0); Lymphocytes % 10.2 % (21.3-54.2); Mean Corpuscular HGB Conc 30.5 GM/DL (32-36); Mean Corpuscular Volume 91.3 FL (87-102); Mean Platelet Volume 9.4 FL (9.6-12.0); Monocytes % 6.2 % (1.7-12.7); Neutrophils % 79.4 % (38.7-73.9); Platelet Count 380 T/CUMM (130-400); Red Blood Count 3.45 MC/CUMM (3.8-5.5); Red Cell Distribution Width 15.9 % (9.3-17.3); White Blood Count 12.8 T/CUMM (4-12)
[2021-05-04 11:52] LABS: Albumin 1.9 G/DL (3.4-5.0); Bilirubin,Total 0.4 MG/DL (0.2-1.0); Calcium 8.7 MG/DL (8.5-10.1); Total Protein 6.8 G/DL (6.4-8.2)
[2021-05-04] MEDS ORDERED: VANCOMYCIN 1,000 MG VIAL ONE (11:57)
[2021-05-04] MEDS ORDERED: DEXTROSE 50% 25 GM/50 ML VIAL IV PRN ×2 (13:12)
[2021-05-04] MEDS ORDERED: GLUCAGON 1 MG VIAL IM PRN ×2 (13:12)
[2021-05-04] MEDS ORDERED: ONDANSETRON 4 MG/2 ML VIAL IV PRN (13:12)
[2021-05-04] MEDS ORDERED: MORPHINE 4 MG/1 ML VIAL IV PRN ×2 (17:10)
[2021-05-04] MEDS: PIPERACILLIN/TAZOBACTAM 3,375 MG in SODIUM CHLORIDE 0.9% 100 ML IV SCH (18:14)
[2021-05-04 19:43] LABS: Bacteria,Urine Occasional /HPF (Few); Bilirubin,Urine Negative (Negative); Blood, Urine Moderate mg/dL (Negative); Glucose,Urine (UA) Negative (Negative); Ketones,Urine Negative (Negative); Nitrite,Urine Negative (Negative); Protein,Urine Negative; RBC,Urine 1 /HPF (0-4); Squamous Epithelial Cell,Urine Occasional /HPF (0-10); Urine Appearance Slightly Hazy (Clear); Urine Color Yellow (Yellow); Urine Specific Gravity 1.012 (1.001-1.035); Urine Urobilinogen < 2.0 EU/DL (0.2-1.0)
[2021-05-04] MEDS: DOCUSATE SODIUM 100 MG CAPSULE PO SCH (22:25)
[2021-05-05] MEDS ORDERED: VANCOMYCIN INJ 1,000 MG in SODIUM CHLORIDE 0.9% 250 ML IV SCH (00:01)
[2021-05-05] MEDS: PIPERACILLIN/TAZOBACTAM 3,375 MG in SODIUM CHLORIDE 0.9% 100 ML IV SCH ×3 (02:50→19:13)
[2021-05-05 06:20] LABS: Basophils % 0.3 % (0.0-0.8); Eosinophils # 0.6 10*3/uL (0.0-0.87); Eosinophils % 5.6 % (0.00-10.9); Immature Granulocytes % 0.8 %; Immature Granulocytes Absolute 0.09 #; Lymphocytes # 1.6 10*3/uL (1.4-4.0); Lymphocytes % 14.2 % (21.3-54.2); Mean Corpuscular HGB Conc 29.6 GM/DL (32-36); Mean Corpuscular Volume 91.8 FL (87-102); Mean Platelet Volume 9.5 FL (9.6-12.0); Monocytes % 9.2 % (1.7-12.7); Neutrophils % 69.9 % (38.7-73.9); Platelet Count 358 T/CUMM (130-400); Red Blood Count 2.94 MC/CUMM (3.8-5.5); Red Cell Distribution Width 15.8 % (9.3-17.3); White Blood Count 11.1 T/CUMM (4-12)
[2021-05-05 06:25] LABS: Alanine Aminotransferase 39 U/L (13-56); Albumin 1.6 G/DL (3.4-5.0); Alkaline Phosphatase 111 U/L (45-117); Aspartate Amino Transferase 54 U/L (0-37); Bilirubin,Total < 0.39 MG/DL (0.2-1.0); Blood Urea Nitrogen 15 MG/DL (7-18); Calcium 8.4 MG/DL (8.5-10.1); Carbon Dioxide 20 MMOL/L (21-32); Estimated Glom Filtration Rate 105 ML/MIN; Glucose 106 MG/DL (74-106); Osmolality,Calculated 275.7 MOS/KG (273-304); Potassium 3.9 MMOL/L (3.5-5.1); Sodium 138 MMOL/L (136-145); Total Protein 5.8 G/DL (6.4-8.2)
[2021-05-05] MEDS ORDERED: PANTOPRAZOLE 40 MG TABLET PO SCH (09:00)
[2021-05-05] MEDS ORDERED: SODIUM HYPOCHLORITE 0.25% IRRIG 473 ML BOTTLE TOP SCH (09:00)
[2021-05-05 09:20] LABS: % Iron Saturation 8.9 % (18-50); Ferritin 218.5 ng/ml (8-252)
[2021-05-05 09:25] LABS: Folate 4.43 NG/ML (5.38-24.0)
[2021-05-05] MEDS: DOCUSATE SODIUM 100 MG CAPSULE PO SCH ×2 (09:32→20:43)
[2021-05-05] MEDS ORDERED: COLLAGENASE OINT 30 GM TUBE TOP SCH (15:00)
[2021-05-05 20:55] VITALS: BP 108/42
== END 2021-05-05 21:03 | disposition home health service (06) ==
LOC: EDUNIT# → EDBD → N.EDINP 10:45 → N.ED 10:45 → N.EDINP 15:50 → N.5E 16:15
PROVIDERS: ADMIT Internal Medicine; ATTEND Internal Medicine

== ENCOUNTER 2021-08-06 14:14 | Inpatient (IN) ==
[2021-08-06] MEDS ORDERED: SODIUM CHLORIDE 0.9% 1,000 ML IV STA ×2 (14:33→16:50)
[2021-08-06 15:44] LABS: Basophils % 0.1 % (0.0-0.8); Hematocrit 30.9 VOL% (35.7-47.0); Hemoglobin 9.1 GM/DL (12.0-16.0); Immature Granulocytes Absolute 0.32 #; Lymphocytes # 1.1 10*3/uL (1.4-4.0); Lymphocytes % 3.4 % (21.3-54.2); Mean Corpuscular HGB Conc 29.4 GM/DL (32-36); Mean Corpuscular Volume 81.5 FL (87-102); Mean Platelet Volume 9.6 FL (9.6-12.0); Neutrophils % 93.5 % (38.7-73.9); Platelet Count 529 T/CUMM (130-400); Red Blood Count 3.79 MC/CUMM (3.8-5.5); Red Cell Distribution Width 17.2 % (9.3-17.3); White Blood Count 32.2 T/CUMM (4-12)
[2021-08-06] MEDS ORDERED: PIPERACILLIN/TAZOBACTAM 3,375 MG in SODIUM CHLORIDE 0.9% 100 ML IV STA (16:11)
[2021-08-06] MEDS ORDERED: VANCOMYCIN INJ 1,000 MG in SODIUM CHLORIDE 0.9% 250 ML IV STA (16:11)
[2021-08-06 16:19] LABS: Albumin 1.3 G/DL (3.4-5.0); Bilirubin,Total 0.4 MG/DL (0.20-1.00); CKMB % 5.9 %; Calcium 8.4 MG/DL (8.5-10.1); Potassium 4.3 MMOL/L (3.5-5.1); Total Protein 6.3 G/DL (6.4-8.2)
[2021-08-06] MEDS ORDERED: LACTULOSE 20 GM/30 ML UDCUP PO PRN (17:05)
[2021-08-06] MEDS ORDERED: DEXTROSE 50% 25 GM/50 ML VIAL IV PRN (17:05)
[2021-08-06] MEDS ORDERED: DOCUSATE SODIUM 100 MG CAPSULE PO PRN (17:05)
[2021-08-06] MEDS ORDERED: ONDANSETRON 4 MG/2 ML VIAL IV PRN (17:05)
[2021-08-06] MEDS ORDERED: GLUCAGON 1 MG VIAL IM PRN (17:05)
[2021-08-06] MEDS ORDERED: ALBUMIN 25% 50 GM/200 ML VIAL IV ONE (17:08)
[2021-08-06] MEDS ORDERED: LACTATED RINGERS 1,000 ML IV SCH (17:30)
[2021-08-06] MEDS ORDERED: VANCOMYCIN INJ 1,000 MG in SODIUM CHLORIDE 0.9% 250 ML IV PRN (18:04)
[2021-08-06] MEDS ORDERED: VANCOMYCIN INJ 1,000 MG in SODIUM CHLORIDE 0.9% 250 ML IV ONE (18:30)
[2021-08-06 18:31] LABS: Risk Ratio 2.47; Thyroid Stimulating Hormone 3.86 uIU/ml (0.358-3.74); VLDL Cholesterol 17.2 MG/DL
[2021-08-06 18:50] LABS: Bacteria,Urine Few /HPF (Few); Bilirubin,Urine Negative (Negative); Blood, Urine Moderate mg/dL (Negative); Glucose,Urine (UA) Negative (Negative); Ketones,Urine Negative (Negative); Mucus,Urine Occasional /LPF (Occasional); Nitrite,Urine Negative (Negative); Protein,Urine 100 MG/DL; RBC,Urine 3 /HPF (0-4); Squamous Epithelial Cell,Urine Few /HPF (0-10); Urine Appearance CLOUDY (Clear); Urine Color Yellow (Yellow); Urine Specific Gravity 1.012 (1.001-1.035); Urine Urobilinogen < 2.0 EU/DL (0.2-1.0)
[2021-08-06 20:17] LABS: Band Neutrophils 3 % (0-10); Lymphocytes 3 % (20-55); Platelet Estimate Increased; Segmented Neutrophils 93 % (50-85); Total Cells Counted 100
[2021-08-06] MEDS: DEXTROSE 5% NACL 0.9% 1,000 ML IV SCH (21:29)
[2021-08-07] MEDS ORDERED: PIPERACILLIN/TAZOBACTAM 3,375 MG in SODIUM CHLORIDE 0.9% 100 ML IV SCH (02:00)
[2021-08-07] MEDS: DEXTROSE 5% NACL 0.9% 1,000 ML IV SCH ×2 (05:50→13:23)
[2021-08-07 06:07] LABS: Albumin 1.9 G/DL (3.4-5.0); Bilirubin,Total 0.8 MG/DL (0.20-1.00); Calcium 7.7 MG/DL (8.5-10.1); Osmolality,Calculated 292.4 MOS/KG (273-304); Potassium 3.9 MMOL/L (3.5-5.1); Total Protein 5.1 G/DL (6.4-8.2)
[2021-08-07 06:17] LABS: Basophils % 0.1 % (0.0-0.8); Hematocrit 23.2 VOL% (35.7-47.0); Immature Granulocytes % 0.8 %; Immature Granulocytes Absolute 0.14 #; Lymphocytes # 0.8 10*3/uL (1.4-4.0); Lymphocytes % 4.8 % (21.3-54.2); Mean Corpuscular HGB Conc 28.9 GM/DL (32-36); Mean Corpuscular Volume 84.1 FL (87-102); Mean Platelet Volume 9.5 FL (9.6-12.0); Monocytes % 3.1 % (1.7-12.7); Neutrophils % 91.2 % (38.7-73.9); Red Cell Distribution Width 17.2 % (9.3-17.3)
[2021-08-07 06:18] LABS: Hemoglobin 6.7 GM/DL (12.0-16.0); Red Blood Count 2.76 MC/CUMM (3.8-5.5); White Blood Count 17.2 T/CUMM (4-12)
[2021-08-07 06:19] LABS: Platelet Count 281 T/CUMM (130-400)
[2021-08-07 06:45] LABS: Anisocytosis 1+; Band Neutrophils 20 % (0-10); Lymphocytes 4 % (20-55); Macrocytosis Slight; Platelet Estimate Normal; Segmented Neutrophils 74 % (50-85); Total Cells Counted 100
[2021-08-07 06:46] LABS: Tear Drop Cells Few
[2021-08-07] MEDS ORDERED: SODIUM CHLORIDE 0.9% 500 ML IV ONE ×2 (08:15→11:09)
[2021-08-07] MEDS ORDERED: NOREPINEPHRINE 8 MG in SODIUM CHLORIDE 0.9% 242 ML IV PRN (11:47)
[2021-08-07] MEDS ORDERED: NOREPINEPHRINE 4 MG/4 ML VIAL IV ONE (11:59)
[2021-08-07] MEDS ORDERED: ALBUMIN 25% 25 GM/100 ML VIAL IV SCH (12:00)
[2021-08-07] MEDS ORDERED: fentaNYL 25 MCG/HR PATCH TRANSDERM SCH (12:00)
[2021-08-07] MEDS ORDERED: LORazepam 2 MG/1 ML VIAL IV PRN (13:58)
[2021-08-07] MEDS ORDERED: BACLOFEN 10 MG TABLET PO PRN (14:41)
[2021-08-07] MEDS: MORPHINE 2 MG/1 ML SYRINGE IV PRN ×2 (15:31→20:42)
[2021-08-07] MEDS: GABAPENTIN 300 MG CAPSULE PO SCH ×2 (16:40→20:41)
[2021-08-08] MEDS: GABAPENTIN 300 MG CAPSULE PO SCH ×3 (08:00→20:18)
[2021-08-08] MEDS ORDERED: PANTOPRAZOLE 40 MG TABLET PO SCH (09:00)
[2021-08-08 17:11] VITALS: BP 93/50
== END 2021-08-09 00:07 | disposition expired | DRG 871 ==
LOC: EDBD → EDUNIT# → N.ED 14:14 → N.EDINP 17:05 → SUATTDRO 17:05 → N.3E 18:15 → N.CC 08-07 12:29 → N.3E 08-07 15:04
PROVIDERS: ADMIT Internal Medicine; ATTEND Internal Medicine